=== PATIENT | male | born 1945 | race African-American/Black ===

== ENCOUNTER 2017-11-04 20:25 | Inpatient (IN) | payer OTHER ==
--- NOTE | 2017-11-04 20:38 | PDOC ---
History of Present Illness - General Chief Complaint: Tachycardia Stated Complaint: SENT BY PCP Time Seen by Provider: 11/04/17 20:34 - History of Present Illness Initial Comments: 11/04/17 21:05 Patient is a 72 year old male with a PMH of Asthma and Afib (on Warfarin) who presents to our ED c/o 3 month h/o increasing shortness of breath on exertion. Patient notes [place] for the last 3 months he becomes tired after walking a few hundred yards and has to stop and rest. Patient denies any associated chest pain, lightheadedness or palpitations. Patient also notes that he was involved in the October 20 [facility] clean-up and he has been wheezing since that time, however he has never been evaluated by a society reporter. Patient was evaluated by his gas operation manager, Dr. Jacobson, this afternoon and told he should come to the Emergency Department because his heart was getting stiff and not pumping blood. Patient also notes he had an INR drawn earlier today and it was 11. NKDA Surgical: hernia repair x2, torn Achilles tendon repair (R) Social: denies toxic habits PMD: Dr. Riddle As per EMR, patient last evaluated in 2011 for pain associated with abdominal and inguinal hernias. At that time patient left AMA, however subsequently received surgical repair. Past History - Past Medical History Allergies/Adverse Reactions: Allergies Allergy/AdvReac Type Severity Reaction Status Date / Time grass pollen-sweet vernal, Allergy Mild Verified 11/04/17 20:39 standardized [grass poll-sweet vernal, std.] Home Medications: Ambulatory Orders Budesonide/Formeterol Fumarate [SYMBICORT 160/4.5mcg -] 1 inh PO DAILY 11/04/17 Nebivolol [Bystolic -] 5 mg PO DAILY 11/04/17 Prednisone 10 mg PO DAILY 11/04/17 Tiotropium [place] [Spiriva Respimat] 4 gm IH DAILY 11/04/17 Warfarin Na [Coumadin] 2 mg PO DAILY 11/04/17 Warfarin Na [Coumadin] 5 mg PO DAILY 11/04/17 Cardiac Disorders: Yes - Immunization History Td Vaccination: No TDAP Vaccination: No Immunization Up to Date: No (UNKNOWN) - Suicide/Smoking/Psychosocial Hx Smoking Status: No Years of Tobacco Use: 0 Number of Cigarettes Smoked Daily: 0 Substance Use Type: Alcohol Review of Systems - Review of Systems Constitutional: No: Chills, Fever HEENTM: No: Blurred Vision, Double Vision Respiratory: No: Cough, Shortness of Breath, Stridor, Wheezing Cardiac (ROS): No: Chest Pain, Lightheadedness, Palpitations, Syncope ABD/GI: No: Constipated, Diarrhea, Nausea, Vomiting : No: Burning, Dysuria *Physical Exam - Physical Exam General Appearance: Yes: Nourished, Appropriately Dressed HEENT: positive: EOMI, ONELIA Neck: positive: Trachea midline, Supple Respiratory/Chest: positive: Wheezing. negative: Accessory Muscle Use, Labored Respiration Cardiovascular: positive: S1, S2, Edema (B/L LE pitting edema,) ED Treatment Course - LABORATORY CBC & Chemistry Diagram: 11/04/17 21:15 11/04/17 21:15 - RADIOLOGY Radiology Studies Ordered: Category Date Time Status CXRPORT [CHEST X-RAY PORTABLE*] [RAD] Stat Radiology 11/04/17 20:37 Ordered Medical Decision Making - Medical Decision Making 11/04/17 22:31 72 year old male presents with 3 month h/o ELIAS. B/L pitting edema on PE (R >L) . Clinical suspicion for new onset CHF. Will obtain basic labs, EKG, BNP, Troponin. Doppler of RLE to r/o clot. Reassess. 11/05/17 00:12 Troponin (-) x1, BNP 3000 (no previous BNP in EMR) INR 5 (as per patient INR 11) no active sign of bleeding. Mild ELIE (Cr. 1.4) ECG shows AFib HR 160. Patient on lunchroom monitor. Admitted to inpatient telemetry. LE Doppler pending. *DC/Admit/Observation/Transfer Diagnosis at time of Disposition: New onset of congestive heart failure - Discharge Dispostion Condition at time of disposition: Fair Decision to Admit order: Yes - Referrals - Patient Instructions - Post Discharge Activity
[2017-11-04 21:25] LABS: BASO % 0.6 % (0-2.0); EOS % 1.8 % (0-4.5); HEMATOCRIT 35.8 % (35.4-49); HEMOGLOBIN 11.6 GM/dL (11.7-16.9); LYMPH % 12.2 % (8-40); MCH 29.9 pg (25.7-33.7); MCHC 32.3 g/dl (32.0-35.9); MEAN CELL VOLUME 92.5 fl (80-96); MEAN PLT VOLUME 8.9 fl (7.5-11.1); MONO % 12.8 % (3.8-10.2); NEUT % 72.6 % (42.8-82.8); PLATELET COUNT 246 K/MM3 (134-434); RBC 3.87 M/mm3 (4.00-5.60); RDW 13.2 % (11.9-15.9); WHITE BLOOD COUNT 12.4 K/mm3 (4.0-10.0)
[2017-11-04 21:50] LABS: ALBUMIN 2.5 g/dl (3.4-5.0); ALK PHOS 88 U/L (45-117); ANION GAP 10 MMOL/L (8-16); BILIRUBIN,TOTAL 0.9 mg/dL (0.2-1); BLOOD UREA NITROGEN 17 mg/dL (7-18); CALCIUM 8.1 mg/dL (8.5-10.1); CHLORIDE 104 mmol/L (98-107); CO2 31 mmol/L (21-32); CREATININE 1.4 mg/dL (0.55-1.3); GLUCOSE,RANDOM 136 mg/dL (74-106); N-TERMINAL BNP 3051.9 pg/ml (5-125); SGOT/AST 42 U/L (15-37); SGPT/ALT 63 U/L (13-61); SODIUM 145 mmol/L (136-145); TOT PROT 5.2 g/dl (6.4-8.2)
[2017-11-04 21:57] LABS: PLATELET ESTIMATE ADEQUATE
[2017-11-04 22:23] LABS: PROTHROMBIN TIME (PATIENT) 60.4 SEC (9.7-13.0)
[2017-11-04 22:25] LABS: ACTIVATED PTT 54.7 SECONDS (25.2-36.5)
[2017-11-04 22:32] LABS: INR 5.35 (0.83-1.09)
[2017-11-04] MEDS ORDERED: FUROSEMIDE 40 MG/4 ML INJECTABLE VIAL IVPUSH ONE (22:52)
--- NOTE | 2017-11-04 22:58 | PDOC ---
Attending Attestation - Resident Resident Name: Lucía Chance - ED Attending Attestation I have performed the following: I have examined & evaluated the patient, The case was reviewed & discussed with the resident, I agree w/resident's findings & plan, Exceptions are as noted - HPI HPI: 11/04/17 22:56 The patient is a 72 year old male with a past medical history of Afib (on Warfarin) and asthma who presents to the emergency department with worsening ELIAS and BLE swelling. The patient endorses feeling increasingly short of breath over the past 3 months and bilateral lower extremity swelling, right greater than left. [place] makes him feel winded. He denies any recent chest pain, palpitations, or calf tenderness. He denies any recent fevers, chills, headache or dizziness. He denies any recent nausea, vomit, diarrhea or constipation.He denies any recent dysuria, frequency, urgency or hematuria. Allergies: NKA Past surgical history: None reported. Social History: Nonsmoker. Denies EtOH use and recreational drug use. Primary Care Physician: Dr. Riddle - Physicial Exam PE: 11/04/17 22:57 GENERAL: Awake, alert, and fully oriented, in no acute distress. HEAD: No signs of trauma EYES: PERRLA, EOMI, sclera anicteric, conjunctiva clear ENT: Auricles normal inspection, hearing grossly normal, nares patent, oropharynx clear without exudates. Moist mucosa NECK: Nontender, no stepoffs, Normal ROM, supple, no lymphadenopathy, JVD, or masses LUNGS: Breath sounds equal, clear to auscultation bilaterally. No wheezes, and no crackles HEART: Regular rate and rhythm, normal S1 and S2, no murmurs, rubs or gallops ABDOMEN: Soft, nontender, normoactive bowel sounds. No guarding, no rebound. No masses EXTREMITIES: + PE BLE, R>L NEUROLOGICAL: Cranial nerves II through XII intact. 5/5 strength and sensation in all extremities, Normal speech, normal gait, normal cerebellar function SKIN: Warm, Dry, normal turgor, no rashes or lesions noted. - Medical Decision Making 11/04/17 22:57 72 M with ELIAS and BLE edema, concerning for new CHF. Will also evaluate for DVT given asymmetric BLE swelling. - Labs, trop, BNP - CXR - BLE doppler
[2017-11-04] MEDS ORDERED: FUROSEMIDE 40 MG/4 ML INJECTABLE VIAL ONE (23:00)
--- NOTE | 2017-11-04 23:20 | HP ---
CHIEF COMPLAINT: PCP: Dr Riddle HISTORY OF PRESENT ILLNESS: Patient referred from his java android developer Dr Ferro for evaluation of abnormal ECG. As per patient he has noted increase weight and bilateral swelling of lower extremities. Denies chest pain, SOB, orthopnea or decreased exercise tolerance. Recent Travel: None PAST MEDICAL HISTORY: Atrial Fibrillation on coumadin with supratherapeutic INR which is being held, asthma. PAST SURGICAL HISTORY: Inguinal herniaplasty Social History: Smoking: No Alcohol:Drinks Beer 3 22oz daily Drugs: none Family History: Noncontributory Allergies grass pollen-sweet vernal, standardized [grass poll-sweet vernal, std.] Allergy (Mild, Verified 11/04/17 20:39) HOME MEDICATIONS: Home Medications Medication Instructions Recorded Budesonide/Formeterol Fumarate 1 inh PO DAILY 11/04/17 [SYMBICORT 160/4.5mcg -] Nebivolol [Bystolic -] 5 mg PO DAILY 11/04/17 Prednisone 10 mg PO DAILY 11/04/17 Tiotropium [place] [Spiriva 4 gm IH DAILY 11/04/17 Respimat] Warfarin Na [Coumadin] 2 mg PO DAILY 11/04/17 Warfarin Na [Coumadin] 5 mg PO DAILY 11/04/17 REVIEW OF SYSTEMS CONSTITUTIONAL: weight change Absent: fever, chills, diaphoresis, generalized weakness, malaise, loss of appetite, HEENT: Absent: rhinorrhea, nasal congestion, throat pain, throat swelling, difficulty swallowing, mouth swelling, ear pain, eye pain, visual changes CARDIOVASCULAR: peripheral edema Absent: chest pain, syncope, palpitations, irregular heart rate, lightheadedness , RESPIRATORY: Absent: cough, shortness of breath, dyspnea with exertion, orthopnea, wheezing, stridor, hemoptysis GASTROINTESTINAL: Absent: abdominal pain, abdominal distension, nausea, vomiting, diarrhea, constipation, melena, hematochezia GENITOURINARY: Absent: dysuria, frequency, urgency, hesitancy, hematuria, flank pain, genital pain MUSCULOSKELETAL: Absent: myalgia, arthralgia, joint swelling, back pain, neck pain SKIN: Absent: rash, itching, pallor HEMATOLOGIC/IMMUNOLOGIC: Absent: easy bleeding, easy bruising, lymphadenopathy, frequent infections ENDOCRINE: Absent: unexplained weight gain, unexplained weight loss, heat intolerance, cold intolerance NEUROLOGIC: Absent: headache, focal weakness or paresthesias, dizziness, unsteady gait, seizure, mental status changes, bladder or bowel incontinence PSYCHIATRIC: Absent: anxiety, depression, suicidal or homicidal ideation, hallucinations. PHYSICAL EXAMINATION Vital Signs - 24 hr 11/04/17 20:34 Temperature 99.4 F Pulse Rate 89 Respiratory 16 Rate Blood Pressure 114/70 O2 Sat by Pulse 100 Oximetry (%) GENERAL: Awake, alert, and fully oriented, in no acute distress. HEAD: Normal with no signs of trauma. EYES: Pupils equal, round and reactive to light, extraocular movements intact, sclera anicteric, conjunctiva clear. No lid lag. EARS, NOSE, THROAT: Ears normal, nares patent, oropharynx clear without exudates. Moist mucous membranes. NECK: JVD +,Normal range of motion, supple without lymphadenopathy, or masses. LUNGS: Breath sounds equal, clear to auscultation bilaterally. No wheezes, and no crackles. No accessory muscle use. HEART: Regular rate and rhythm, normal S1 and S2 without murmur, rub or gallop. ABDOMEN: Soft, nontender, distended midline surgical scar, normoactive bowel sounds, no guarding, no rebound, no masses. No hepatomegaly or splenomegaly. MUSCULOSKELETAL: Normal range of motion at all joints. No bony deformities or tenderness. No CVA tenderness. UPPER EXTREMITIES: 2+ pulses, warm, well-perfused. No cyanosis. No clubbing. No peripheral edema. LOWER EXTREMITIES: 2+ pulses, warm, well-perfused. No calf tenderness. Bilateral peripheral edema. NEUROLOGICAL: Cranial nerves II-XII intact. Normal speech. Normal gait. PSYCHIATRIC: Cooperative. Good eye contact. Appropriate mood and affect. SKIN: Warm, dry, normal turgor, no rashes or lesions noted, normal capillary refill. Laboratory Results - last 24 hr 11/04/17 11/04/17 11/04/17 21:15 21:15 21:50 WBC 12.4 H RBC 3.87 L Hgb 11.6 L Hct 35.8 MCV 92.5 MCH 29.9 MCHC 32.3 RDW 13.2 Plt Count 246 MPV 8.9 Absolute Neuts (auto) 9.0 H Total Counted 100 Neutrophils % 72.6 Neutrophils % (Manual) 72.0 Lymphocytes % 12.2 Lymphocytes % (Manual) 14.0 Monocytes % 12.8 H Monocytes % (Manual) 12 H Eosinophils % 1.8 Eosinophils % (Manual) 2.0 Basophils % 0.6 Nucleated RBC % 0 Differential Comment Loading Unit Tool Setter Platelet Estimate Adequate PT with INR 60.40 H INR 5.35 H* PTT (Actin FS) 54.7 H Sodium 145 Potassium 4.0 Chloride 104 Carbon Dioxide 31 Anion Gap 10 BUN 17 Creatinine 1.4 H Creat Clearance w eGFR 49.96 Random Glucose 136 H Calcium 8.1 L Total Bilirubin 0.9 AST 42 H ALT 63 H Alkaline Phosphatase 88 Creatine Kinase 402 H Creatine Kinase Index 1.0 CK-MB (CK-2) 4.3 H Troponin I < 0.02 B-Natriuretic Peptide 3051.9 H Total Protein 5.2 L Albumin 2.5 L ASSESSMENT/PLAN: Admit patient to telemety for evaluation of New Onset CHF New Onset CHF ECHO Lasix 60mg total IVP given today and continue with 40mg daily Atorvastatin 40mg daily monitor I&Os Daily weights Lipid panel, CBC, CMP and INR in AM Cardiology consult AFib Continue to hold Coumadin for supratherapeutic INR Asthma- Continue home medications Symbicort and Prednisone Nebs PRN DVT prophylaxis: INR supratherapeutic and 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 on dedicated intermodal 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 driver anticoagulation therapy Problem List - Problem (1) New onset of congestive heart failure Code(s): I50.9 - HEART FAILURE, UNSPECIFIED (2) Elevated INR Code(s): R79.1 - ABNORMAL COAGULATION PROFILE (3) Afib Code(s): I48.91 - UNSPECIFIED ATRIAL FIBRILLATION Qualifiers: Atrial fibrillation type: paroxysmal Qualified Code(s): I48.0 - Paroxysmal atrial fibrillation (4) Asthma Code(s): J45.909 - UNSPECIFIED ASTHMA, UNCOMPLICATED Qualifiers: Asthma severity: moderate Asthma persistence: persistent Visit type - Emergency Visit Emergency Visit: Yes ED Registration Date: 11/04/17 Care time: The patient presented to the Emergency Department on the above date and was hospitalized for further evaluation of their emergent condition. - New Patient This patient is new to me today: Yes Date on this admission: 11/10/17 - Critical Care Critical Care patient: No
--- NOTE | 2017-11-05 00:03 | HP ---
CHIEF COMPLAINT: PCP: HISTORY OF PRESENT ILLNESS: ER course was notable for: (1) (2) (3) Recent Travel: PAST MEDICAL HISTORY: PAST SURGICAL HISTORY: Social History: Smoking: Alcohol: Drugs: Family History: Allergies grass pollen-sweet vernal, standardized [grass poll-sweet vernal, std.] Allergy (Mild, Verified 11/04/17 20:39) HOME MEDICATIONS: Home Medications Medication Instructions Recorded Budesonide/Formeterol Fumarate 1 inh PO DAILY 11/04/17 [SYMBICORT 160/4.5mcg -] Nebivolol [Bystolic -] 5 mg PO DAILY 11/04/17 Prednisone 10 mg PO DAILY 11/04/17 Tiotropium [place] [Spiriva 4 gm IH DAILY 11/04/17 Respimat] Warfarin Na [Coumadin] 2 mg PO DAILY 11/04/17 Warfarin Na [Coumadin] 5 mg PO DAILY 11/04/17 REVIEW OF SYSTEMS CONSTITUTIONAL: Absent: fever, chills, diaphoresis, generalized weakness, malaise, loss of appetite, weight change HEENT: Absent: rhinorrhea, nasal congestion, throat pain, throat swelling, difficulty swallowing, mouth swelling, ear pain, eye pain, visual changes CARDIOVASCULAR: Absent: chest pain, syncope, palpitations, irregular heart rate, lightheadedness , peripheral edema RESPIRATORY: Absent: cough, shortness of breath, dyspnea with exertion, orthopnea, wheezing, stridor, hemoptysis GASTROINTESTINAL: Absent: abdominal pain, abdominal distension, nausea, vomiting, diarrhea, constipation, melena, hematochezia GENITOURINARY: Absent: dysuria, frequency, urgency, hesitancy, hematuria, flank pain, genital pain MUSCULOSKELETAL: Absent: myalgia, arthralgia, joint swelling, back pain, neck pain SKIN: Absent: rash, itching, pallor HEMATOLOGIC/IMMUNOLOGIC: Absent: easy bleeding, easy bruising, lymphadenopathy, frequent infections ENDOCRINE: Absent: unexplained weight gain, unexplained weight loss, heat intolerance, cold intolerance NEUROLOGIC: Absent: headache, focal weakness or paresthesias, dizziness, unsteady gait, seizure, mental status changes, bladder or bowel incontinence PSYCHIATRIC: Absent: anxiety, depression, suicidal or homicidal ideation, hallucinations. PHYSICAL EXAMINATION Vital Signs - 24 hr 11/04/17 20:34 Temperature 99.4 F Pulse Rate 89 Respiratory 16 Rate Blood Pressure 114/70 O2 Sat by Pulse 100 Oximetry (%) GENERAL: Awake, alert, and fully oriented, in no acute distress. HEAD: Normal with no signs of trauma. EYES: Pupils equal, round and reactive to light, extraocular movements intact, sclera anicteric, conjunctiva clear. No lid lag. EARS, NOSE, THROAT: Ears normal, nares patent, oropharynx clear without exudates. Moist mucous membranes. NECK: Normal range of motion, supple without lymphadenopathy, JVD, or masses. LUNGS: Breath sounds equal, clear to auscultation bilaterally. No wheezes, and no crackles. No accessory muscle use. HEART: Regular rate and rhythm, normal S1 and S2 without murmur, rub or gallop. ABDOMEN: Soft, nontender, not distended, normoactive bowel sounds, no guarding, no rebound, no masses. No hepatomegaly or splenomegaly. MUSCULOSKELETAL: Normal range of motion at all joints. No bony deformities or tenderness. No CVA tenderness. UPPER EXTREMITIES: 2+ pulses, warm, well-perfused. No cyanosis. No clubbing. No peripheral edema. LOWER EXTREMITIES: 2+ pulses, warm, well-perfused. No calf tenderness. No peripheral edema. NEUROLOGICAL: Cranial nerves II-XII intact. Normal speech. Normal gait. PSYCHIATRIC: Cooperative. Good eye contact. Appropriate mood and affect. SKIN: Warm, dry, normal turgor, no rashes or lesions noted, normal capillary refill. Laboratory Results - last 24 hr 11/04/17 11/04/17 11/04/17 21:15 21:15 21:50 WBC 12.4 H RBC 3.87 L Hgb 11.6 L Hct 35.8 MCV 92.5 MCH 29.9 MCHC 32.3 RDW 13.2 Plt Count 246 MPV 8.9 Absolute Neuts (auto) 9.0 H Total Counted 100 Neutrophils % 72.6 Neutrophils % (Manual) 72.0 Lymphocytes % 12.2 Lymphocytes % (Manual) 14.0 Monocytes % 12.8 H Monocytes % (Manual) 12 H Eosinophils % 1.8 Eosinophils % (Manual) 2.0 Basophils % 0.6 Nucleated RBC % 0 Differential Comment Superintendent [employer]illing [employer] Production Platelet Estimate Adequate PT with INR 60.40 H INR 5.35 H* PTT (Actin FS) 54.7 H Sodium 145 Potassium 4.0 Chloride 104 Carbon Dioxide 31 Anion Gap 10 BUN 17 Creatinine 1.4 H Creat Clearance w eGFR 49.96 Random Glucose 136 H Calcium 8.1 L Total Bilirubin 0.9 AST 42 H ALT 63 H Alkaline Phosphatase 88 Creatine Kinase 402 H Creatine Kinase Index 1.0 CK-MB (CK-2) 4.3 H Troponin I < 0.02 B-Natriuretic Peptide 3051.9 H Total Protein 5.2 L Albumin 2.5 L ASSESSMENT/PLAN: Hospitalist Screening - Colonoscopy Questionnaire Colonoscopy Questionnaire: Colonoscopy Questionnaire
--- NOTE | 2017-11-05 01:30 | MSN ---
Admitting History and Physical - Primary Care Physician PCP: Dr. Riddle - Admission Chief Complaint: Sent by supervisor riprap placing for ischemic changes on ECG History of Present Illness: Pt is a 72 year old male with a PMHx of asthma and afib. He was sent to the ED from supervisor riprap placing Dr. Ferro due to abnormal ECG changes. Pt was seeing supervisor riprap placing for routine INR check, which was found to be elevated at 5.35 when supervisor riprap placing decided to do an ECG and noticed some ischemic changes. Of note pt has had increased SOB on exertion for the past three months. Pt currently is asymptomatic. History Source: Patient Limitations to Obtaining History: No Limitations - Past Medical History KNIFE BLADE POLISHER: No: Alzheimer's, CVA, Dementia, Migraine, Multiple Sclerosis, Peripheral Neuropathy, Parkinson's, Seizure, Syncope, TIA, Vertigo, Other Cardiovascular: Yes: AFIB Pulmonary: Yes: Asthma Gastrointestinal: No: Ascites, Cancer, Constipation, Crohn's Disease, Diverticulitis, Diverticulosis, Esophageal Varices, Gastritis, GERD, GI Bleed, Hemorrhoids, Hiatal Hernia, Inflamatory Bowel Disease, Irritable Bowel Disease, Pancreatitis, Peptic Ulcer Disease, Ulcerative Colitis, Other Hepatobiliary: No: Cirrhosis, Cholelithiasis, Cholecystitis, Choledocholithiasis , Hepatitis A, Hepatitis B, Hepatitis C, Other Renal/: No: Renal Failure, Renal Inusuff, BPH, Cancer, Hematuria, Hemodialysis , Neurogenic Bladder, Renal Calculi, UTI, Other Heme/Onc: No: Anemia, B12 Deficiency, Bleeding Disorder, Cancer, Current Chemotherapy, Current Radiation Therapy, Hemochromatosis, Hypercoaguable State, Myeloproliferative Synd, Sickle Cell Disease, Sickle Cell Trait, Thrombocytopenia, Other Infectious Disease: No: AIDS, C-Diff, Herpes Zoster, HIV, MRSA, STD's, Tuberculosis, VREF, Other Psych: No: Addictions, Anxiety, Bipolar, Depression, Panic, Psychosis, Schizophrenia, Other Musculoskeletal: No: Bursitis, Chronic low back pain, Hemiparesis, Hemiplegia, Osteoarthritis, Paraplegia, Other Rheumatology: No: Fibromyalgia, Gout, Lupus, Rheumatoid Arthritis, Sarcoidosis, Vasculitis, Other ENT: No: Allergic Rhinitis, Sinusitis, Other Endocrine: No: Piedmont's Disease, Bybee's Disease, Diabetes Insipidus, Diabetes Mellitus, Hyperparathyroidism, Hyperthyroidism, Hypothyroidism, Osteopenia, SIADH, Other Dermatology: No: Basal Cell, Cellulitis, Eczema, Melanoma, Psoriasis, Squamous Cell, Other - Past Surgical History Past Surgical History: Yes: Hernia Repair (inguinal hernia repair 15 years ago with re repair 1 year ago) Additional Past Surgical History: achilles tendon repair - Smoking History Smoking history: Never smoked Have you smoked in the past 12 months: No Aproximately how many cigarettes per day: 0 - Alcohol/Substance Use Hx Alcohol Use: Yes Number of Drinks Daily: 6 (3 22oz bottles of beer) History of Substance Use: reports: None - Social History ADL: Independent History of Recent Travel: No Home Medications - Allergies Allergies/Adverse Reactions: Allergies Allergy/AdvReac Type Severity Reaction Status Date / Time grass pollen-sweet vernal, Allergy Mild Verified 11/04/17 20:39 standardized [grass poll-sweet vernal, std.] - Home Medications Home Medications: Ambulatory Orders Budesonide/Formeterol Fumarate [SYMBICORT 160/4.5mcg -] 1 inh PO DAILY 11/04/17 Nebivolol [Bystolic -] 5 mg PO DAILY 11/04/17 Prednisone 10 mg PO DAILY 11/04/17 Tiotropium [place] [Spiriva Respimat] 4 gm IH DAILY 11/04/17 Warfarin Na [Coumadin] 2 mg PO DAILY 11/04/17 Warfarin Na [Coumadin] 5 mg PO DAILY 11/04/17 Family Disease History - Family Disease History Family History: Denies Review of Systems - Review of Systems Constitutional: reports: Lethargy Eyes: reports: No Symptoms HENT: reports: No Symptoms Neck: reports: Other (JVD) Cardiovascular: reports: Edema, Shortness of Breath Respiratory: reports: SOB, SOB on Exertion, Wheezing Gastrointestinal: reports: Bloating Genitourinary: reports: No Symptoms Breasts: reports: No Symptoms Reported Musculoskeletal: reports: No Symptoms Integumentary: reports: Other (approximate 8 in surgical scar midline of abdomen ) Neurological: reports: No Symptoms Endocrine: reports: No Symptoms Hematology/Lymphatic: reports: No Symptoms Psychiatric: reports: No Symptoms Physical Examination Vital Signs: Vital Signs Temperature 99.4 F 11/04/17 20:34 Pulse Rate 72 11/05/17 00:18 Respiratory Rate 18 11/05/17 00:18 Blood Pressure 124/72 11/05/17 00:18 O2 Sat by Pulse Oximetry (%) 99 11/05/17 00:18 Constitutional: Yes: Well Nourished, No Distress, Calm Eyes: Yes: WNL, Conjunctiva Clear, EOM Intact HENT: Yes: WNL, Atraumatic, Normocephalic Neck: Yes: Other Cardiovascular: Yes: Pulse Irregular, JVD Respiratory: Yes: SOB, SOB on Exertion, Wheezes Gastrointestinal: Yes: Hernia (non painful ventral hernia) Renal/: Yes: WNL Musculoskeletal: Yes: WNL Extremities: Yes: WNL, Other Edema: LLE: 3+ (pitting), RLE: 3+ (pitting) Peripheral Pulses WNL: Yes Integumentary: Yes: WNL Neurological: Yes: WNL, Alert, Oriented ...Motor Strength: WNL Psychiatric: Yes: WNL, Alert, Oriented Labs: CBC, BMP 11/04/17 21:15 11/04/17 21:15 Imaging - Results Chest X-ray: Report Reviewed (Chest xray showed cardiomegaly and pulmonary venous congestion) EKG: Report Reviewed (afib with lateral ischemic changes) Problem List - Problems (1) New onset of congestive heart failure Assessment/Plan: start on BECCA inhibitor continue with lasix 40 mg daily. Pt was responsive to 40 mg lasix in ED. ECHO Consult cardio measure I&Os daily weights Code(s): I50.9 - HEART FAILURE, UNSPECIFIED (2) Elevated INR Assessment/Plan: hold warfarin repeat INR Code(s): R79.1 - ABNORMAL COAGULATION PROFILE (3) Dyspnea on exertion Assessment/Plan: cardio consult review records with supervisor riprap placing for possible repeat stress test ECHO monitor for symptom resolution when volume status improves Code(s): R06.09 - OTHER FORMS OF DYSPNEA (4) Afib Assessment/Plan: resume warfarin once INR resolves Code(s): I48.91 - UNSPECIFIED ATRIAL FIBRILLATION Qualifiers: Atrial fibrillation type: paroxysmal Qualified Code(s): I48.0 - Paroxysmal atrial fibrillation
[2017-11-05 04:43] VITALS: BMI 29.5
[2017-11-05] MEDS ORDERED: ALBUTEROL SO4 2.5/IPRATROPIUM 0.5 INH SOL 3 ML VIAL.NEB. NEB PRN ×2 (05:53→15:35)
[2017-11-05] MEDS ORDERED: HEPARIN NA (PORCINE) 5,000 UNITS/ML 1ML VIAL SQ SCH (06:00)
[2017-11-05 06:22] LABS: HEMOGLOBIN 11.3 GM/dL (11.7-16.9); MCH 29.7 pg (25.7-33.7); MCHC 32.2 g/dl (32.0-35.9); MEAN CELL VOLUME 92.1 fl (80-96); MEAN PLT VOLUME 9.2 fl (7.5-11.1); PLATELET COUNT 227 K/MM3 (134-434); RDW 13.4 % (11.9-15.9); WHITE BLOOD COUNT 11.8 K/mm3 (4.0-10.0)
[2017-11-05 06:40] LABS: PROTHROMBIN TIME (PATIENT) 57.4 SEC (9.7-13.0)
[2017-11-05 06:43] LABS: ACTIVATED PTT 58.3 SECONDS (25.2-36.5)
[2017-11-05 06:58] LABS: ANION GAP 6 MMOL/L (8-16); BLOOD UREA NITROGEN 15 mg/dL (7-18); CHLORIDE 101 mmol/L (98-107); CO2 35 mmol/L (21-32); CREATININE 1.2 mg/dL (0.55-1.3); GLUCOSE,RANDOM 117 mg/dL (74-106); MAGNESIUM 1.8 mg/dL (1.8-2.4); PHOSPHOROUS 2.7 mg/dL (2.5-4.9); POTASSIUM 3.4 mmol/L (3.5-5.1); SODIUM 142 mmol/L (136-145)
[2017-11-05 07:41] LABS: CHOLESTEROL 138 mg/dL (50-200); HDL CHOLESTEROL 38 mg/dL (40-60); TRIGLYCERIDES 100 mg/dL (0-150)
[2017-11-05 08:09] LABS: INR 5.08 (0.83-1.09)
--- NOTE | 2017-11-05 09:34 | EKG ---
Test Reason : Blood Pressure : / mmHG Vent. Rate : 142 BPM Atrial Rate : 241 BPM P-R Int : 000 ms QRS Dur : 086 ms QT Int : 274 ms P-R-T Axes : 000 058 202 degrees QTc Int : 421 ms ATRIAL FIBRILLATION WITH RAPID VENTRICULAR RESPONSE WITH PREMATURE VENTRICULAR OR ABERRANTLY CONDUCTED COMPLEXES ABNORMAL ECG WHEN COMPARED WITH ECG OF 16-JUN-2007 12:26, SIGNIFICANT CHANGES HAVE OCCURRED Confirmed by ROSALVA ARZOLA, CAROL ([id number]) on 11/05/2017 9:34:31 AM Referred By: Confirmed By:CAROL BLACKWELL MD
[2017-11-05] MEDS ORDERED: FUROSEMIDE 40 MG/4 ML INJECTABLE VIAL IVPUSH ONE (09:35)
[2017-11-05] MEDS ORDERED: MAGNESIUM SULF 50% (8.12 MEQ/2 ML-1 GM VIAL) IVPB ONE (09:45)
[2017-11-05] MEDS: TIOTROPIUM BROMIDE 2.5 MCG (SPIRIVA) RESPIMAT INHALER IH SCH (09:47)
[2017-11-05] MEDS: POTASSIUM CHLORIDE ORAL LIQUID 20 MEQ/15 ML PO SCH ×2 (09:49→21:45)
--- NOTE | 2017-11-05 09:51 | PN ---
Progress Note, Physician Chief Complaint: Pt sitting in bed in no acute distress. reports sob with exertion over the last few months w/ recent worsening in symptoms and LE edema. Otherwise, denies any chest pain/sob at rest, n/v/d - Current Medication List Current Medications: Active Medications Albuterol/Ipratropium (Duoneb -) 1 amp NEB DAILY PRN PRN Reason: WHEEZING Last Admin: 11/05/17 06:26 Dose: 1 amp Atorvastatin Calcium (Lipitor -) 40 mg PO HS MARIAELENA Budesonide/Formoterol Fumarate (Symbicort 160/4.5mcg -) 2 puff IH BID MARIAELENA Influenza Virus Vaccine Quadrival (Flulaval Quad [id number]) 60 mcg IM .ONCE ONE Stop: 11/05/17 10:01 Lisinopril (Prinivil) 5 mg PO DAILY MARIAELENA Pneumococcal 13-Valent Conj Vacc (Prevnar 13 Syringe -) 0.5 ml IM .ONCE ONE Stop: 11/05/17 10:01 Potassium Chloride (Potassium Chloride Oral Liquid) 40 meq PO BID MARIAELENA Prednisone (Deltasone -) 10 mg PO DAILY MARIAELENA Tiotropium [place] (Spiriva Respimat) 2 puff IH DAILY [facility] - Objective Vital Signs: Vital Signs Temperature 98.8 F 11/05/17 05:00 Pulse Rate 105 H 11/05/17 09:00 Respiratory Rate 20 11/05/17 09:00 Blood Pressure 105/48 L 11/05/17 09:00 O2 Sat by Pulse Oximetry (%) 97 11/05/17 08:59 Constitutional: Yes: Well Nourished, No Distress, Calm Cardiovascular: Yes: Pulse Irregular. No: Rub Respiratory: Yes: Regular, Diminished, SOB on Exertion, Wheezes (scattered). No : Accessory Muscle Use, SOB, Tachypnea Gastrointestinal: Yes: WNL, Normal Bowel Sounds, Soft. No: Distention, Tenderness, Vomiting Genitourinary: Yes: WNL Musculoskeletal: Yes: WNL Edema: LLE: 2+, RLE: 3+ Neurological: Yes: WNL, Alert, Oriented Psychiatric: Yes: WNL, Alert, Oriented Labs: CBC, BMP 11/05/17 05:30 11/05/17 05:30 INR, PTT INR 5.08 (0.83-1.09) H* 11/05/17 05:30 Problem List - Problems (1) Acute exacerbation of CHF (congestive heart failure) Assessment/Plan: acute on chronic, underlying afib presents w/ worsening sob on exertion, LE edema echo- ef mildly reduced ef,diastolic dysfunction satting >92% on RA lasix iv 40mg daily valsartan started dvt ruled out daily weights low na diet cardiology following Code(s): I50.9 - HEART FAILURE, UNSPECIFIED Qualifiers: Heart failure type: combined systolic and diastolic Qualified Code(s): I50.43 - Acute on chronic combined systolic (congestive) and diastolic ( congestive) heart failure (2) Atrial fibrillation with RVR Assessment/Plan: rapid rate in 110s-130s , asymptomatic lopressor 5mg x 1, cardizem if no improvement nebivolol increased cardiology following Code(s): I48.91 - UNSPECIFIED ATRIAL FIBRILLATION (3) Afib Assessment/Plan: continue nebivolol coumadin HELD monitor INR Code(s): I48.91 - UNSPECIFIED ATRIAL FIBRILLATION Qualifiers: Atrial fibrillation type: paroxysmal Qualified Code(s): I48.0 - Paroxysmal atrial fibrillation (4) Dyspnea on exertion Assessment/Plan: as above Code(s): R06.09 - OTHER FORMS OF DYSPNEA (5) ELIE (acute kidney injury) Assessment/Plan: improved monitor Code(s): N17.9 - ACUTE KIDNEY FAILURE, UNSPECIFIED (6) Transaminitis Assessment/Plan: 2/2 hepatic congestion 2/2 chf improved Code(s): R74.0 - NONSPEC ELEV OF LEVELS OF TRANSAMNS & LACTIC ACID DEHYDRGNSE (7) Supratherapeutic INR Assessment/Plan: slowly improving continue to hold coumadin and watch no overt signs of bleeding Code(s): R79.1 - ABNORMAL COAGULATION PROFILE (8) Leukocytosis Assessment/Plan: improving does not suspect infectious etiology UA/UC ordered Code(s): D72.829 - ELEVATED WHITE BLOOD CELL COUNT, UNSPECIFIED (9) Hypokalemia Assessment/Plan: 2/2 diuresis replete prn kcl po scheduled monitor bmp Code(s): E87.6 - HYPOKALEMIA (10) Hypomagnesemia Assessment/Plan: mild replete prn mg sulfate iv 1mg x 1 monitor Code(s): E83.42 - HYPOMAGNESEMIA (11) Asthma Assessment/Plan: wheezing on exam continue nebs pulm consult pending Code(s): J45.909 - UNSPECIFIED ASTHMA, UNCOMPLICATED Qualifiers: Asthma severity: moderate Asthma persistence: persistent (12) HLD (hyperlipidemia) Assessment/Plan: controlled continue statin Code(s): E78.5 - HYPERLIPIDEMIA, UNSPECIFIED
[2017-11-05] MEDS ORDERED: LISINOPRIL 5 MG TABLET (FP) PO SCH ×2 (10:00→10:03)
[2017-11-05] MEDS ORDERED: FUROSEMIDE 40 MG TABLET (FP) PO SCH (10:00)
[2017-11-05] MEDS ORDERED: predniSONE 10 MG TABLET (UD) PO SCH (10:00)
[2017-11-05] MEDS ORDERED: PNEUMOC 13-VAL CONJ-DIP CRM/PF 0.5 ML DISP.SYRIN IM ONE (10:00)
[2017-11-05] MEDS ORDERED: FLU VACCINE QUAD 60 MCG/0.5 ML (MDV 18-19) IM ONE (10:00)
[2017-11-05] MEDS: BUDESONIDE/FORMETEROL FUMARATE 160/4.5 mcg INHALER IH SCH ×2 (10:02→21:51)
[2017-11-05 11:03] LABS: ALBUMIN 2.3 g/dl (3.4-5.0); ALK PHOS 75 U/L (45-117); BILIRUBIN,DIRECT 0.3 mg/dL (0.0-0.2); SGOT/AST 35 U/L (15-37); SGPT/ALT 55 U/L (13-61)
--- NOTE | 2017-11-05 11:46 | CON.CARD ---
Consult Consult Specialty:: Cardiology Referred by:: Johnny Riddle MD Reason for Consultation:: Acute on chronic diastolic failure, rapid AF - History of Present Illness Chief Complaint: Increasing dyspnea, bilateral LE edema History of Present Illness: 72 yo male h/o diastolic dysfunction, paroxysmal afib/flutter [id number] 2-3 on coumadin per INR (declines DOACs), hypertensive cardiovascular disease, bronchial asthma, admitted for increasing dyspnea with minimal exertion, fatigue , bilateral lower extremity edema, orthopnea without PND, denies palpitations, near or true syncope. Found to be in rapid afib and failure, feels better after rate-control and diuresis. 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: No: Alzheimer's, CVA, Dementia, Migraine, Multiple Sclerosis, Peripheral Neuropathy, Parkinson's, Seizure, Syncope, TIA, Vertigo, Other Cardio/Vascular: Yes: AFIB, CHF Pulmonary: Yes: Asthma Gastrointestinal: No: Ascites, Cancer, Constipation, Crohn's Disease, Diverticulitis, Diverticulosis, Esophageal Varices, Gastritis, GERD, GI Bleed, Hemorrhoids, Hiatal Hernia, Inflamatory Bowel Disease, Irritable Bowel Disease, Pancreatitis, Peptic Ulcer Disease, Ulcerative Colitis, Other Hepatobiliary: No: Cirrhosis, Cholelithiasis, Cholecystitis, Choledocholithiasis , Hepatitis A, Hepatitis B, Hepatitis C, Other Renal/: No: Renal Failure, Renal Inusuff, BPH, Cancer, Hematuria, Hemodialysis , Neurogenic Bladder, Renal Calculi, UTI, Other Infectious Disease: No: AIDS, C-Diff, Herpes Zoster, HIV, MRSA, STD's, Tuberculosis, VREF, Other Psych: No: Addictions, Anxiety, Bipolar, Depression, Panic, Psychosis, Schizophrenia, Other Musculoskeletal: No: Bursitis, Chronic low back pain, Hemiparesis, Hemiplegia, Osteoarthritis, Paraplegia, Other Rheumatology: No: Fibromyalgia, Gout, Lupus, Rheumatoid Arthritis, Sarcoidosis, Vasculitis, Other ENT: No: Allergic Rhinitis, Sinusitis, Other Endocrine: No: Gage's Disease, Tamica's Disease, Diabetes Insipidus, Diabetes Mellitus, Hyperparathyroidism, Hyperthyroidism, Hypothyroidism, Osteopenia, SIADH, Other Dermatology: No: Basal Cell, Cellulitis, Eczema, Melanoma, Psoriasis, Squamous Cell, Other - Past Surgical History Past Surgical History: Yes: Hernia Repair (inguinal hernia repair 15 years ago with re repair 1 year ago) - Alcohol/Substance Use Hx Alcohol Use: Yes Number of Drinks Daily: 6 (3 22oz bottles of beer) History of Substance Use: reports: None - Smoking History Smoking history: Never smoked Have you smoked in the past 12 months: No Aproximately how many cigarettes per day: 0 - Social History ADL: Independent History of Recent Travel: No Home Medications - Allergies Allergies/Adverse Reactions: Allergies Allergy/AdvReac Type Severity Reaction Status Date / Time grass pollen-sweet vernal, Allergy Mild Verified 11/04/17 20:39 standardized [grass poll-sweet vernal, std.] - Home Medications Home Medications: Ambulatory Orders Budesonide/Formeterol Fumarate [SYMBICORT 160/4.5mcg -] 1 inh PO DAILY 11/04/17 Nebivolol [Bystolic -] 5 mg PO DAILY 11/04/17 Prednisone 10 mg PO DAILY 11/04/17 Tiotropium [place] [Spiriva Respimat] 4 gm IH DAILY 11/04/17 Warfarin Na [Coumadin] 2 mg PO DAILY 11/04/17 Warfarin Na [Coumadin] 5 mg PO DAILY 11/04/17 Family Disease History - Family Disease History Family Disease History: Diabetes: Father, Mother Review of Systems - Review of Systems Constitutional: reports: Lethargy Eyes: reports: No Symptoms HENT: reports: No Symptoms Neck: reports: No Symptoms Cardiovascular: reports: Shortness of Breath Respiratory: reports: Exercise Intolerance, SOB on Exertion, Wheezing Gastrointestinal: reports: No Symptoms Genitourinary: reports: No Symptoms Integumentary: reports: No Symptoms Neurological: reports: No Symptoms Endocrine: reports: No Symptoms Hematology/Lymphatic: reports: No Symptoms Vital Signs: Vital Signs Temperature 98.8 F 11/05/17 05:00 Pulse Rate 105 H 11/05/17 09:00 Respiratory Rate 20 11/05/17 09:00 Blood Pressure 105/48 L 11/05/17 09:00 O2 Sat by Pulse Oximetry (%) 97 11/05/17 08:59 Constitutional: Yes: No Distress, Calm Neck: Yes: Supple Respiratory: Yes: Regular, Diminished, On Nasal O2, Rales, Wheezes Gastrointestinal: Yes: Normal Bowel Sounds, Soft Cardiovascular: Yes: Tachycardia, Pulse Irregular JVD: No Carotid Bruit: No Heart Sounds: Yes: S1, S2 Murmur: Yes: Systolic Murmur, Grade 1 Edema: Yes Edema: LLE: 1+, RLE: 1+ - Other Data Labs, Other Data: CBC, BMP 11/05/17 05:30 11/05/17 05:30 INR, PTT INR 5.08 (0.83-1.09) H* 11/05/17 05:30 Troponin, BNP 11/04/17 21:15 Troponin I < 0.02 B-Natriuretic Peptide 3051.9 H Troponin, BNP 11/04/17 21:15 Troponin I < 0.02 B-Natriuretic Peptide 3051.9 H Afib 142 PVC Ejection Fraction %: LVEF > or = 40 % Imaging - Results Chest X-ray: Report Reviewed (Mild CHF) Problem List - Problems (1) Acute exacerbation of CHF (congestive heart failure) Code(s): I50.9 - HEART FAILURE, UNSPECIFIED Qualifiers: Heart failure type: combined systolic and diastolic Qualified Code(s): I50.43 - Acute on chronic combined systolic (congestive) and diastolic ( congestive) heart failure (2) Afib Code(s): I48.91 - UNSPECIFIED ATRIAL FIBRILLATION Qualifiers: Atrial fibrillation type: paroxysmal Qualified Code(s): I48.0 - Paroxysmal atrial fibrillation (3) Asthma Code(s): J45.909 - UNSPECIFIED ASTHMA, UNCOMPLICATED Qualifiers: Asthma severity: moderate Asthma persistence: persistent (4) Supratherapeutic INR Code(s): R79.1 - ABNORMAL COAGULATION PROFILE (5) Hypertensive cardiovascular disease Code(s): I11.9 - HYPERTENSIVE HEART DISEASE WITHOUT HEART FAILURE Qualifiers: Heart failure presence: with heart failure Heart failure type: combined systolic and diastolic Heart failure chronicity: acute on chronic Qualified Code(s): I11.0 - Hypertensive heart disease with heart failure; I50.43 - Acute on chronic combined systolic (congestive) and diastolic (congestive) heart failure Assessment/Plan August 14, 2017 cLVH with abnormal septal motion, normal LVEF 65-70%, MAC, mild LAE 4.7 cm, CHAVA, mild MR, mild-mod TR RVSP 32 mmHg April 20, 2014 Nuc stress: No ischemia LVEF 63% A: 1. Acute on chronic diastolic heart failure in context of 2. Paroxysmal atrial fibrillation with RVR with supratherapeutic INR 3. Hypertensive cardiovascular disease 4. Reactive airway disease/bronchial asthma r/o COPD P:1. IV diuresis with monitor diuretic response, renal function and electrolytes 2. Increase Bystolic 5 bid, IV cardizem or Lopressor as needed for rate-control 3. Hold coumadin for INR 2-3, advised switch to DOAC with benefits over coumadin , he will reconsider 4. BD, singulair, O2 as needed, outpatient PFTs 5. Thank you for consultative opportunity
[2017-11-05] MEDS ORDERED: NEBIVOLOL 5 MG TABLET (FP) PO SCH (12:00)
--- NOTE | 2017-11-05 12:32 | ECHO ---
Name: DAYNA SARMIENTO Exam:Adult Echocardiogram Study Date: 11/05/2017 10:47 AM Age: 72 yrs Reason For Study: SOB Height: 69 in Weight: 212 lb BSA: 2.1 m2 MMode/2D Measurements & Calculations IVSd: 0.82 cm Ao root diam: 3.4 cm LVIDd: 5.2 cm LA dimension: 4.2 cm LVIDs: 4.0 cm LVPWd: 0.82 cm EDV(Teich): 126.9 ml TAPSE: 0.91 cm ESV(Teich): 70.0 ml RV S Desmond: 10.7 cm/sec Doppler Measurements & Calculations MV V2 max: 125.3 cm/sec MV E max desmond: 89.3 cm/sec MV max P.3 mmHg MV A max desmond: 24.7 cm/sec MV V2 mean: 65.7 cm/sec MV E/A: 3.6 MV mean P.1 mmHg MV dec time: 0.17 sec MV V2 VTI: 34.7 cm Ao V2 max: 128.0 cm/sec LV V1 max P.2 mmHg Ao max P.6 mmHg LV V1 max: 102.2 cm/sec MR max desmond: 408.4 cm/sec TR max desmond: 257.9 cm/sec MR max P.8 mmHg TR max P.7 mmHg Med Peak E' Desmond: 9.7 cm/sec Med E/e': 9.3 Lat Peak E' Desmond: 10.5 cm/sec Lat E/e': 8.5 Procedure A complete two-dimensional transthoracic echocardiogram was performed (2D, M-mode, Doppler and color flow Doppler). Left Ventricle The left ventricle is normal in size. Ejection Fraction = 45-50%. Left ventricular systolic function is mildly reduced. There is mild global hypokinesis of the left ventricle. Right Ventricle The right ventricle is normal in size and function. Atria The left atrium is mildly dilated. The right atrium is mildly dilated. Mitral Valve There is mild to moderate mitral regurgitation. Tricuspid Valve There is moderate tricuspid regurgitation. Right ventricular systolic pressure is normal. Aortic Valve The aortic valve is trileaflet. No hemodynamically significant valvular aortic stenosis. No aortic regurgitation is present. Pulmonic Valve Trace pulmonic valvular regurgitation. Great Vessels The aortic root is normal size. Pericardium/Pleura There is no pericardial effusion. Interpretation Summary The left ventricle is normal in size. Left ventricular systolic function is mildly reduced. There is mild global hypokinesis of the left ventricle. The right ventricle is normal in size and function. The left atrium is mildly dilated. The right atrium is mildly dilated. There is mild to moderate mitral regurgitation. There is moderate tricuspid regurgitation. Trace pulmonic valvular regurgitation. MD Zak Hernandez 11/05/2017 12:31 PM
--- NOTE | 2017-11-05 12:41 | CON.PULM ---
Consult Consult Specialty:: PULMONARY Referred by:: JACKI Gardner Reason for Consultation:: shortness of breath - History of Present Illness Chief Complaint: shortness of breath History of Present Illness: 72yo male with h/o asthma, atrial fibrillation on anticoagulation who was admitted with worsening shortness of breath x 3 months. 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 He denies any chest pain or palpitations. He denies coughing but some wheezing. He has had asthma since a child, does have 2nd hand smoke exposure, never been intubated for asthma but has been hospitalized. 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 He does have 10/20 exposure. He is a never smoker. Maintained on Symbicort, Spiriva and albuterol. Self d/c'd singulair. - History Source History Provided By: Patient, Significant Other, Medical Record Limitations to Obtaining History: No Limitations - Past Medical History Cardio/Vascular: Yes: AFIB, CHF Pulmonary: Yes: Asthma - Past Surgical History Past Surgical History: Yes: Hernia Repair (inguinal hernia repair 15 years ago with re repair 1 year ago) - Alcohol/Substance Use Hx Alcohol Use: Yes Number of Drinks Daily: 6 (3 22oz bottles of beer) History of Substance Use: reports: None - Smoking History Smoking history: Never smoked Have you smoked in the past 12 months: No Aproximately how many cigarettes per day: 0 - Social History ADL: Independent History of Recent Travel: No Home Medications - Allergies Allergies/Adverse Reactions: Allergies Allergy/AdvReac Type Severity Reaction Status Date / Time grass pollen-sweet vernal, Allergy Mild Verified 11/04/17 20:39 standardized [grass poll-sweet vernal, std.] - Home Medications Home Medications: Ambulatory Orders Budesonide/Formeterol Fumarate [SYMBICORT 160/4.5mcg -] 1 inh PO DAILY 11/04/17 Nebivolol [Bystolic -] 5 mg PO DAILY 11/04/17 Prednisone 10 mg PO DAILY 11/04/17 Tiotropium [place] [Spiriva Respimat] 4 gm IH DAILY 11/04/17 Warfarin Na [Coumadin] 2 mg PO DAILY 11/04/17 Warfarin Na [Coumadin] 5 mg PO DAILY 11/04/17 Review of Systems - Review of Systems Constitutional: reports: Weakness. denies: Chills, Fever Eyes: denies: Recent Change in Vision HENT: denies: Nasal Congestion, Throat Pain Neck: denies: Stiffness, Tenderness Cardiovascular: reports: Shortness of Breath. denies: Chest Pain, Palpitations Respiratory: reports: Wheezing. denies: Cough, Hemoptysis Gastrointestinal: denies: Abdominal Pain, Nausea, Vomiting Genitourinary: denies: Dysuria, Hematuria Neurological: denies: Dizziness, Headache Endocrine: denies: Unexplained Weight Loss Physical Exam Vital Sings: Vital Signs Temperature 98.8 F 11/05/17 05:00 Pulse Rate 105 H 11/05/17 09:00 Respiratory Rate 20 11/05/17 09:00 Blood Pressure 105/48 L 11/05/17 09:00 O2 Sat by Pulse Oximetry (%) 97 11/05/17 08:59 Constitutional: Yes: Calm Eyes: Yes: Conjunctiva Clear, EOM Intact HENT: Yes: Atraumatic, Normocephalic Neck: Yes: Supple, Trachea Midline Cardiovascular: Yes: Pulse Irregular Respiratory: Yes: Wheezes (scattered) ...Clubbing: No Gastrointestinal: Yes: Normal Bowel Sounds, Soft. No: Tenderness Edema: No Neurological: Yes: Alert, Oriented Labs: CBC, BMP 11/05/17 05:30 11/05/17 05:30 Imaging - Results Chest X-ray: Report Reviewed, Image Reviewed (mild pulmonary vascular congestion ) Assessment/Plan Acute on Chronic Diastolic/Systolic Heart Failure Atrial Fibrillation Asthma r/o COPD - rate control - continue anticoagulation, target INR 2-3 - inhaled bronchodilators - symbicort, spiriva - will add singulair - can defer systemic steroids at this time - will need outpt PFTs and follow up Thank you for this consult Tigre Shore MD
--- NOTE | 2017-11-05 13:11 | CONSULT ---
Consult Consult Specialty:: PM&R - History of Present Illness Chief Complaint: ELIAS History of Present Illness: This is a 72 year old man with a medical history of A fib, asthma, who presented to the ED 11/04/17 with SOB and BLE edema which had been worsening over the past 3 months. He was admitted for acute CHF exacerbation for which Cardiology and Pulmonology were consulted. ELIE as well as transaminitis were noted initially, both improving. Coumadin was held for supratherapeutic INR. UA / UCx were ordered for leukocytosis. Physiatry is being consulted for further recommendations. 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: No: Alzheimer's, CVA, Dementia, Migraine, Multiple Sclerosis, Peripheral Neuropathy, Parkinson's, Seizure, Syncope, TIA, Vertigo, Other Cardio/Vascular: Yes: AFIB, CHF Pulmonary: Yes: Asthma Gastrointestinal: No: Ascites, Cancer, Constipation, Crohn's Disease, Diverticulitis, Diverticulosis, Esophageal Varices, Gastritis, GERD, GI Bleed, Hemorrhoids, Hiatal Hernia, Inflamatory Bowel Disease, Irritable Bowel Disease, Pancreatitis, Peptic Ulcer Disease, Ulcerative Colitis, Other Hepatobiliary: No: Cirrhosis, Cholelithiasis, Cholecystitis, Choledocholithiasis , Hepatitis A, Hepatitis B, Hepatitis C, Other Renal/: No: Renal Failure, Renal Inusuff, BPH, Cancer, Hematuria, Hemodialysis , Neurogenic Bladder, Renal Calculi, UTI, Other Infectious Disease: No: AIDS, C-Diff, Herpes Zoster, HIV, MRSA, STD's, Tuberculosis, VREF, Other Psych: No: Addictions, Anxiety, Bipolar, Depression, Panic, Psychosis, Schizophrenia, Other Musculoskeletal: No: Bursitis, Chronic low back pain, Hemiparesis, Hemiplegia, Osteoarthritis, Paraplegia, Other Rheumatology: No: Fibromyalgia, Gout, Lupus, Rheumatoid Arthritis, Sarcoidosis, Vasculitis, Other ENT: No: Allergic Rhinitis, Sinusitis, Other Endocrine: No: [place]'s Disease, Boyd's Disease, Diabetes Insipidus, Diabetes Mellitus, Hyperparathyroidism, Hyperthyroidism, Hypothyroidism, Osteopenia, SIADH, Other Dermatology: No: Basal Cell, Cellulitis, Eczema, Melanoma, Psoriasis, Squamous Cell, Other - Past Surgical History Past Surgical History: Yes: Hernia Repair (inguinal hernia repair 15 years ago with re repair 1 year ago) - Alcohol/Substance Use Hx Alcohol Use: Yes Number of Drinks Daily: 6 (3 22oz bottles of beer) History of Substance Use: reports: None - Smoking History Smoking history: Never smoked Have you smoked in the past 12 months: No Aproximately how many cigarettes per day: 0 - Social History Usual Living Arrangement: With Spouse (lives with in apartment with ramp to elevator) ADL: Independent (Independent in ADLs/ IADLs without Assistive Device) History of Recent Travel: No Home Medications - Allergies Allergies/Adverse Reactions: Allergies Allergy/AdvReac Type Severity Reaction Status Date / Time grass pollen-sweet vernal, Allergy Mild Verified 11/04/17 20:39 standardized [grass poll-sweet vernal, std.] - Home Medications Home Medications: Ambulatory Orders Budesonide/Formeterol Fumarate [SYMBICORT 160/4.5mcg -] 1 inh PO DAILY 11/04/17 Nebivolol [Bystolic -] 5 mg PO DAILY 11/04/17 Prednisone 10 mg PO DAILY 11/04/17 Tiotropium [place] [Spiriva Respimat] 4 gm IH DAILY 11/04/17 Warfarin Na [Coumadin] 2 mg PO DAILY 11/04/17 Warfarin Na [Coumadin] 5 mg PO DAILY 11/04/17 Review of Systems Findings/Remarks: denies fevers, chills, changes in vision/ hearing/ mood, CP, abdominal pain, nausea, vomiting, constipation, diarrhea, dysuria, muscle/ joint pain, numbness / paresthesias notes ELIAS; no SOB at rest; BLE edema a little worse from baseline Physical Exam Vital Signs: Vital Signs Temperature 98.8 F 11/05/17 05:00 Pulse Rate 105 H 11/05/17 09:00 Respiratory Rate 20 11/05/17 09:00 Blood Pressure 105/48 L 11/05/17 09:00 O2 Sat by Pulse Oximetry (%) 97 11/05/17 08:59 Musculoskeletal: Yes: Other (General: calm elderly AAM lying in bed NAD, AAO x3 N/M: full BUE/ BLE ROM, 4+/5 B HF then 5-/5 BUE/ BLE; Pinprick Intact BUE/ BLE Extremities: 2+ BLE pitting edema, no B calf tenderness) Labs: CBC, BMP 11/05/17 05:30 11/05/17 05:30 Assessment/Plan Impression: 1) Deconditioning 2) Acute CHF exacerbation with hx A fib 3) hx asthma, being seen by Pulm for possible COPD as well 4) ELIE, improving 5) Transaminitis 6) Leukocytosis 7) Overweight 8) No recent flu shot/ pneumovax 9) Anemia Recommendations: 1) PT for stretching strengthening ROM, functional mobility, endurance 2) Falls, safety precautions 3) Cardiopulmonary precautions 4) DVT ppx: supratherapeutic INR 5) Denies constipation on current bowel regimen 6) Monitor CBC given anemia 7) Monitor BMP given electrolyte abnormalities 8) Nutrition consult for weight loss 9) Discharge planning: d/w and pt re: home with services versus [facility], depending on his progress with therapy while hospitalized. He strongly prefers to return home with services. Thank you for this referral.
[2017-11-05] MEDS ORDERED: ALBUTEROL SO4 2.5/IPRATROPIUM 0.5 INH SOL 3 ML VIAL.NEB. NEB SCH (14:00)
[2017-11-05] MEDS ORDERED: METOPROLOL TARTRATE 5 MG/5 ML VIAL IVPUSH ONE (14:45)
[2017-11-05] MEDS ORDERED: METOPROLOL TARTRATE 5 MG/5 ML VIAL ONE (14:54)
[2017-11-05] MEDS ORDERED: dilTIAZem HCL 25 MG/5 ML - 5 ML VIAL IVPUSH PRN (15:47)
[2017-11-05] MEDS: SOTALOL HCL 80 MG TABLET (FP) PO SCH ×2 (18:25→21:45)
[2017-11-05] MEDS: dilTIAZem HCL 30 MG TABLET (FP) PO SCH ×2 (18:25→21:45)
[2017-11-05] MEDS: ATORVASTATIN CA 40 MG TABLET (FP) PO SCH (21:45)
[2017-11-05] MEDS: ALBUTEROL SO4 2.5/IPRATROPIUM 0.5 INH SOL 3 ML VIAL.NEB. NEB PRN (22:20)
[2017-11-06 01:58] LABS: URINE APPEARANCE CLEAR; URINE BILIRUBIN NEGATIVE (<2.0 mg/dL); URINE COLOR YELLOW; URINE GLUCOSE (UA) NEGATIVE (NEGATIVE); URINE KETONE NEGATIVE (NEGATIVE); URINE LEUK ESTERASE NEGATIVE (NEGATIVE); URINE NITRITE NEGATIVE (NEGATIVE); URINE PROTEIN NEGATIVE (NEGATIVE); URINE UROBILINOGEN 4.0 E.U/dl mg/dL (0.2-1.0)
[2017-11-06] MEDS: dilTIAZem HCL 30 MG TABLET (FP) PO SCH ×3 (05:52→21:51)
[2017-11-06 07:22] LABS: BASO % 0.4 % (0-2.0); EOS % 2.6 % (0-4.5); HEMATOCRIT 35.5 % (35.4-49); HEMOGLOBIN 11.4 GM/dL (11.7-16.9); MCH 29.7 pg (25.7-33.7); MCHC 32.2 g/dl (32.0-35.9); MEAN CELL VOLUME 92.4 fl (80-96); MEAN PLT VOLUME 9.8 fl (7.5-11.1); MONO % 11.8 % (3.8-10.2); NEUT % 75.2 % (42.8-82.8); PLATELET COUNT 232 K/MM3 (134-434); RBC 3.85 M/mm3 (4.00-5.60); RDW 13.4 % (11.9-15.9); WHITE BLOOD COUNT 10.9 K/mm3 (4.0-10.0)
[2017-11-06 07:54] LABS: INR 3.2 (0.83-1.09); PROTHROMBIN TIME (PATIENT) 36.2 SEC (9.7-13.0)
[2017-11-06 08:20] LABS: ALBUMIN 2.2 g/dl (3.4-5.0); ALK PHOS 81 U/L (45-117); ANION GAP 4 MMOL/L (8-16); BILIRUBIN,TOTAL 0.7 mg/dL (0.2-1); BLOOD UREA NITROGEN 24 mg/dL (7-18); CHLORIDE 104 mmol/L (98-107); CO2 32 mmol/L (21-32); CREATININE 1.2 mg/dL (0.55-1.3); GLUCOSE,RANDOM 139 mg/dL (74-106); MAGNESIUM 2.2 mg/dL (1.8-2.4); POTASSIUM 4.1 mmol/L (3.5-5.1); SGOT/AST 28 U/L (15-37); SGPT/ALT 46 U/L (13-61); SODIUM 140 mmol/L (136-145); TOT PROT 5.3 g/dl (6.4-8.2)
[2017-11-06] MEDS ORDERED: VALSARTAN 160 MG TABLET (UD) PO SCH (10:00)
[2017-11-06] MEDS ORDERED: FUROSEMIDE 40 MG/4 ML INJECTABLE VIAL IVPUSH SCH (10:00)
[2017-11-06] MEDS: SOTALOL HCL 80 MG TABLET (FP) PO SCH ×2 (10:01→21:54)
[2017-11-06] MEDS: TIOTROPIUM BROMIDE 2.5 MCG (SPIRIVA) RESPIMAT INHALER IH SCH (10:01)
[2017-11-06] MEDS: POTASSIUM CHLORIDE ORAL LIQUID 20 MEQ/15 ML PO SCH (10:01)
[2017-11-06] MEDS: VALSARTAN 80 MG TABLET (UD) PO SCH (10:01)
[2017-11-06] MEDS: BUDESONIDE/FORMETEROL FUMARATE 160/4.5 mcg INHALER IH SCH ×2 (10:02→21:51)
[2017-11-06] MEDS ORDERED: PT OWN MED DRAWER 7, Y5N ONE (10:35)
--- NOTE | 2017-11-06 10:37 | PN ---
Progress Note, Physician History of Present Illness: Afib with improved rate-control, review of INR logs confirm therapeutic INR last few weeks. - Current Medication List Current Medications: Active Medications Albuterol/Ipratropium (Duoneb -) 1 amp NEB Q8H PRN PRN Reason: WHEEZING Last Admin: 11/05/17 22:20 Dose: 1 amp Atorvastatin Calcium (Lipitor -) 40 mg PO HS [facility] Last Admin: 11/05/17 21:45 Dose: 40 mg Budesonide/Formoterol Fumarate (Symbicort 160/4.5mcg -) 2 puff IH BID [facility] Last Admin: 11/06/17 10:02 Dose: 2 puff Diltiazem HCl (Cardizem Injection -) 5 mg IVPUSH Q4H PRN PRN Reason: TACHYCARDIA Diltiazem HCl (Cardizem -) 30 mg PO TID [facility] Last Admin: 11/06/17 05:52 Dose: 30 mg Furosemide (Lasix Injection -) 40 mg IVPUSH DAILY [facility] Last Admin: 11/06/17 10:01 Dose: 40 mg Potassium Chloride (Potassium Chloride Oral Liquid) 40 meq PO BID [facility] Last Admin: 11/06/17 10:01 Dose: Not Given Sotalol HCl (Betapace -) 80 mg PO BID [facility] Last Admin: 11/06/17 10:01 Dose: 80 mg Tiotropium [place] (Spiriva Respimat) 2 puff IH DAILY [facility] Last Admin: 11/06/17 10:01 Dose: 2 puff Valsartan (Diovan -) 80 mg PO DAILY [facility] Last Admin: 11/06/17 10:01 Dose: 80 mg - Objective Vital Signs: Vital Signs Temperature 98.3 F 11/06/17 05:00 Pulse Rate 82 11/06/17 05:00 Respiratory Rate 18 11/06/17 07:48 Blood Pressure 107/59 L 11/06/17 05:00 O2 Sat by Pulse Oximetry (%) 97 11/06/17 07:48 Constitutional: Yes: No Distress, Calm Neck: Yes: Supple Cardiovascular: Yes: Pulse Irregular Respiratory: Yes: Regular, CTA Bilaterally Gastrointestinal: Yes: Normal Bowel Sounds, Soft Edema: Yes Edema: LLE: Trace, RLE: 1+ Labs: CBC, BMP 11/06/17 05:50 11/06/17 05:50 INR, PTT INR 3.20 (0.83-1.09) H 11/06/17 05:50 - ....Imaging EKG: Report Reviewed (Coarse Afib @ 88 with PVC QTc 474 msec) Problem List - Problems (1) Acute exacerbation of CHF (congestive heart failure) Code(s): I50.9 - HEART FAILURE, UNSPECIFIED Qualifiers: Heart failure type: combined systolic and diastolic Qualified Code(s): I50.43 - Acute on chronic combined systolic (congestive) and diastolic ( congestive) heart failure (2) Afib Code(s): I48.91 - UNSPECIFIED ATRIAL FIBRILLATION Qualifiers: Atrial fibrillation type: paroxysmal Qualified Code(s): I48.0 - Paroxysmal atrial fibrillation (3) Asthma Code(s): J45.909 - UNSPECIFIED ASTHMA, UNCOMPLICATED Qualifiers: Asthma severity: moderate Asthma persistence: persistent (4) Supratherapeutic INR Code(s): R79.1 - ABNORMAL COAGULATION PROFILE (5) Hypertensive cardiovascular disease Code(s): I11.9 - HYPERTENSIVE HEART DISEASE WITHOUT HEART FAILURE Qualifiers: Heart failure presence: with heart failure Heart failure type: combined systolic and diastolic Heart failure chronicity: acute on chronic Qualified Code(s): I11.0 - Hypertensive heart disease with heart failure; I50.43 - Acute on chronic combined systolic (congestive) and diastolic (congestive) heart failure Assessment/Plan August 14, 2017 cLVH with abnormal septal motion, normal LVEF 65-70%, MAC, mild LAE 4.7 cm, CHAVA, mild MR, mild-mod TR RVSP 32 mmHg April 20, 2014 Nuc stress: No ischemia LVEF 63% A: 1. Improving acute on chronic diastolic heart failure in context of 2. Paroxysmal atrial fibrillation with RVR with supratherapeutic INR 3. Hypertensive cardiovascular disease 4. Reactive airway disease/bronchial asthma r/o COPD P:1. Resume oral diuresis with monitor diuretic response, renal function and electrolytes 2. Changed Bystolic to Sotalol 80 bid, cardizem as needed for rate-control, plan for DCCV today, given h/o therapeutic INR, KAREN-guidance will not be necessary, continue Diovan 80 qd and Lipitor 40 qhs 3. Hold coumadin for INR 2-3, advised switch to DOAC once INR<2 given benefits over coumadin, he will reconsider 4. BD, singulair, O2 as needed, outpatient PFTs
--- NOTE | 2017-11-06 11:37 | PN ---
Progress Note, Physician History of Present Illness: PULMONARY ALERT,-RESP DISTRESS,-TACHYPNEA - Current Medication List Current Medications: Active Medications Albuterol/Ipratropium (Duoneb -) 1 amp NEB Q8H PRN PRN Reason: WHEEZING Last Admin: 11/05/17 22:20 Dose: 1 amp Atorvastatin Calcium (Lipitor -) 40 mg PO HS [facility] Last Admin: 11/05/17 21:45 Dose: 40 mg Budesonide/Formoterol Fumarate (Symbicort 160/4.5mcg -) 2 puff IH BID [facility] Last Admin: 11/06/17 10:02 Dose: 2 puff Diltiazem HCl (Cardizem Injection -) 5 mg IVPUSH Q4H PRN PRN Reason: TACHYCARDIA Diltiazem HCl (Cardizem -) 30 mg PO TID [facility] Last Admin: 11/06/17 05:52 Dose: 30 mg Furosemide (Lasix Injection -) 40 mg IVPUSH DAILY [facility] Last Admin: 11/06/17 10:01 Dose: 40 mg Potassium Chloride (Potassium Chloride Oral Liquid) 40 meq PO BID [facility] Last Admin: 11/06/17 10:01 Dose: Not Given Sotalol HCl (Betapace -) 80 mg PO BID [facility] Last Admin: 11/06/17 10:01 Dose: 80 mg Tiotropium [place] (Spiriva Respimat) 2 puff IH DAILY [facility] Last Admin: 11/06/17 10:01 Dose: 2 puff Valsartan (Diovan -) 80 mg PO DAILY [facility] Last Admin: 11/06/17 10:01 Dose: 80 mg - Objective Vital Signs: Vital Signs Temperature 98.3 F 11/06/17 05:00 Pulse Rate 82 11/06/17 05:00 Respiratory Rate 18 11/06/17 07:48 Blood Pressure 107/59 L 11/06/17 05:00 O2 Sat by Pulse Oximetry (%) 97 11/06/17 07:48 Constitutional: Yes: Well Nourished, Calm Eyes: Yes: WNL HENT: Yes: WNL Neck: Yes: WNL Cardiovascular: Yes: Pulse Irregular, S1, S2 Respiratory: Yes: Rales (BIBASILAR CRACKLES) Gastrointestinal: Yes: Normal Bowel Sounds Extremities: Yes: WNL Edema: Yes Labs: CBC, BMP 11/06/17 05:50 11/06/17 05:50 INR, PTT INR 3.20 (0.83-1.09) H 11/06/17 05:50 Problem List - Problems (1) Acute exacerbation of CHF (congestive heart failure) Code(s): I50.9 - HEART FAILURE, UNSPECIFIED Qualifiers: Heart failure type: combined systolic and diastolic Qualified Code(s): I50.43 - Acute on chronic combined systolic (congestive) and diastolic ( congestive) heart failure (2) Afib Code(s): I48.91 - UNSPECIFIED ATRIAL FIBRILLATION Qualifiers: Atrial fibrillation type: paroxysmal Qualified Code(s): I48.0 - Paroxysmal atrial fibrillation (3) Asthma Code(s): J45.909 - UNSPECIFIED ASTHMA, UNCOMPLICATED Qualifiers: Asthma severity: moderate Asthma persistence: persistent (4) Dyspnea on exertion Code(s): R06.09 - OTHER FORMS OF DYSPNEA (5) Elevated INR Code(s): R79.1 - ABNORMAL COAGULATION PROFILE Assessment/Plan Assessment/Plan Acute on Chronic Diastolic/Systolic Heart Failure Atrial Fibrillation Asthma r/o COPD - rate control - continue anticoagulation, target INR 2-3 - inhaled bronchodilators - symbicort, spiriva - singulair - outpt PFTs and follow up DR HERRING
--- NOTE | 2017-11-06 12:11 | PN ---
Progress Note, Physician Chief Complaint: Pt sitting in bed in no acute distress. feels breathing tight today. Otherwise, denies any chest pain/sob at rest, n/v/d - Current Medication List Current Medications: Active Medications Albuterol/Ipratropium (Duoneb -) 1 amp NEB Q8H PRN PRN Reason: WHEEZING Last Admin: 11/05/17 22:20 Dose: 1 amp Atorvastatin Calcium (Lipitor -) 40 mg PO HS COUNTS [facility]CLUDE 234 BEDS AT [facility] Last Admin: 11/05/17 21:45 Dose: 40 mg Budesonide/Formoterol Fumarate (Symbicort 160/4.5mcg -) 2 puff IH BID COUNTS [facility]CLUDE 234 BEDS AT [facility] Last Admin: 11/06/17 10:02 Dose: 2 puff Diltiazem HCl (Cardizem Injection -) 5 mg IVPUSH Q4H PRN PRN Reason: TACHYCARDIA Diltiazem HCl (Cardizem -) 30 mg PO TID COUNTS [facility]CLUDE 234 BEDS AT [facility] Last Admin: 11/06/17 05:52 Dose: 30 mg Furosemide (Lasix Injection -) 40 mg IVPUSH DAILY COUNTS [facility]CLUDE 234 BEDS AT THE [facility] Last Admin: 11/06/17 10:01 Dose: 40 mg Sotalol HCl (Betapace -) 80 mg PO BID COUNTS [facility]CLUDE 234 BEDS AT THE [facility] Last Admin: 11/06/17 10:01 Dose: 80 mg Tiotropium [place] (Spiriva Respimat) 2 puff IH DAILY COUNTS [facility]CLUDE 234 BEDS AT [facility] Last Admin: 11/06/17 10:01 Dose: 2 puff Valsartan (Diovan -) 80 mg PO DAILY COUNTS [facility]CLUDE 234 BEDS AT [facility] Last Admin: 11/06/17 10:01 Dose: 80 mg - Objective Vital Signs: Vital Signs Temperature 98.3 F 11/06/17 05:00 Pulse Rate 94 H 11/06/17 09:00 Respiratory Rate 18 11/06/17 07:48 Blood Pressure 105/48 L 11/06/17 09:00 O2 Sat by Pulse Oximetry (%) 97 11/06/17 07:48 Constitutional: Yes: Well Nourished, No Distress, Calm Cardiovascular: Yes: Pulse Irregular Respiratory: Yes: Regular, SOB on Exertion, Wheezes (scattered). No: Accessory Muscle Use, Rales, Rhonchi, Tachypnea Gastrointestinal: Yes: WNL, Normal Bowel Sounds, Soft. No: Distention, Tenderness Genitourinary: Yes: WNL Edema: Yes Edema: LLE: 2+, RLE: 2+ Neurological: Yes: WNL, Alert, Oriented Psychiatric: Yes: WNL, Alert, Oriented Labs: CBC, BMP 11/06/17 05:50 11/06/17 05:50 INR, PTT INR 3.20 (0.83-1.09) H 11/06/17 05:50 Problem List - Problems (1) Acute exacerbation of CHF (congestive heart failure) Code(s): I50.9 - HEART FAILURE, UNSPECIFIED Qualifiers: Heart failure type: combined systolic and diastolic Qualified Code(s): I50.43 - Acute on chronic combined systolic (congestive) and diastolic ( congestive) heart failure (2) Atrial fibrillation with RVR Code(s): I48.91 - UNSPECIFIED ATRIAL FIBRILLATION (3) Afib Code(s): I48.91 - UNSPECIFIED ATRIAL FIBRILLATION Qualifiers: Atrial fibrillation type: paroxysmal Qualified Code(s): I48.0 - Paroxysmal atrial fibrillation (4) Dyspnea on exertion Code(s): R06.09 - OTHER FORMS OF DYSPNEA (5) ELIE (acute kidney injury) Code(s): N17.9 - ACUTE KIDNEY FAILURE, UNSPECIFIED (6) Transaminitis Code(s): R74.0 - NONSPEC ELEV OF LEVELS OF TRANSAMNS & LACTIC ACID DEHYDRGNSE (7) Supratherapeutic INR Code(s): R79.1 - ABNORMAL COAGULATION PROFILE (8) Leukocytosis Code(s): D72.829 - ELEVATED WHITE BLOOD CELL COUNT, UNSPECIFIED (9) Hypokalemia Code(s): E87.6 - HYPOKALEMIA (10) Hypomagnesemia Code(s): E83.42 - HYPOMAGNESEMIA (11) Asthma Code(s): J45.909 - UNSPECIFIED ASTHMA, UNCOMPLICATED Qualifiers: Asthma severity: moderate Asthma persistence: persistent (12) HLD (hyperlipidemia) Code(s): E78.5 - HYPERLIPIDEMIA, UNSPECIFIED (13) Hemoglobin A1c less than 7.0% Code(s): R73.09 - OTHER ABNORMAL GLUCOSE Assessment/Plan (1) Acute exacerbation of CHF (congestive heart failure) Assessment/Plan: acute on chronic, underlying afib presents w/ worsening sob on exertion, LE edema echo- ef mildly reduced ef,diastolic dysfunction satting >92% on RA transitioned to po lasix daily weights low na diet cardiology following Code(s): I50.9 - HEART FAILURE, UNSPECIFIED Qualifiers: Heart failure type: combined systolic and diastolic Qualified Code(s): I50.43 - Acute on chronic combined systolic (congestive) and diastolic ( congestive) heart failure (2) Atrial fibrillation with RVR Assessment/Plan: plan for cardioversion today sotalol started- needs 72 hours monitoring cardiology following Code(s): I48.91 - UNSPECIFIED ATRIAL FIBRILLATION (3) Afib Assessment/Plan: started on sotalol coumadin HELD monitor INR Code(s): I48.91 - UNSPECIFIED ATRIAL FIBRILLATION Qualifiers: Atrial fibrillation type: paroxysmal Qualified Code(s): I48.0 - Paroxysmal atrial fibrillation (4) Dyspnea on exertion Assessment/Plan: as above Code(s): R06.09 - OTHER FORMS OF DYSPNEA (5) ELIE (acute kidney injury) Assessment/Plan: resolved Code(s): N17.9 - ACUTE KIDNEY FAILURE, UNSPECIFIED (6) Transaminitis Assessment/Plan: 2/2 hepatic congestion 2/2 chf resolved Code(s): R74.0 - NONSPEC ELEV OF LEVELS OF TRANSAMNS & LACTIC ACID DEHYDRGNSE (7) Supratherapeutic INR Assessment/Plan: improving continue to hold coumadin and watch DOAC if pt prefers no overt signs of bleeding Code(s): R79.1 - ABNORMAL COAGULATION PROFILE (8) Leukocytosis Assessment/Plan: improved does not suspect infectious etiology UA/UC ordered Code(s): D72.829 - ELEVATED WHITE BLOOD CELL COUNT, UNSPECIFIED (9) Hypokalemia Assessment/Plan: resolved Code(s): E87.6 - HYPOKALEMIA (10) Hypomagnesemia Assessment/Plan: resolved Code(s): E83.42 - HYPOMAGNESEMIA (11) Asthma Assessment/Plan: wheezing on exam symbicord/spiriva continue nebs prn pulm following Code(s): J45.909 - UNSPECIFIED ASTHMA, UNCOMPLICATED Qualifiers: Asthma severity: moderate Asthma persistence: persistent (12) HLD (hyperlipidemia) Assessment/Plan: controlled continue statin Code(s): E78.5 - HYPERLIPIDEMIA, UNSPECIFIED (13) Hemoglobin A1c less than 7.0% Assessment/Plan: HgA1C 6.6, recommend close outpt monitoring Code(s): R73.09 - OTHER ABNORMAL GLUCOSE
--- NOTE | 2017-11-06 14:49 | EKG ---
Test Reason : Blood Pressure : / mmHG Vent. Rate : 065 BPM Atrial Rate : 065 BPM P-R Int : 178 ms QRS Dur : 084 ms QT Int : 484 ms P-R-T Axes : 059 064 029 degrees QTc Int : 503 ms SINUS RHYTHM WITH OCCASIONAL PREMATURE VENTRICULAR COMPLEXES AND PREMATURE ATRIAL COMPLEXES NONSPECIFIC T WAVE ABNORMALITY PROLONGED QT ABNORMAL ECG WHEN COMPARED WITH ECG OF 06-NOV-2017 09:25, SINUS RHYTHM HAS REPLACED ATRIAL FIBRILLATION Confirmed by SOLA QUIROZ MD ([id number]) on 11/06/2017 2:48:39 PM Referred By: Confirmed By:SOLA QUIROZ MD
--- NOTE | 2017-11-06 14:50 | PN ---
Progress Note (short form) - Note Progress Note: Procedure Note: DC Cardioversion Indication: Persistent atrial flutter/fibrillation with RVR After risks and benefits of DCCV reviewed, compliance with anticoagulation affirmed by patient, informed consent obtained and time out reviewed, patient underwent deep sedation with Propofol administered by anesthesia. He then underwent successful DCCV with 120J followed by 150 J synchronized discharge. Post-DCCV ECG confirms re-establishment of NSR Recommendations: Continue Sotalol 80 bid, Cardizem 30 tid as HR tolerates, Diovan 80 qd and coumadin per INR Complications: None Problem List - Problems (1) Acute exacerbation of CHF (congestive heart failure) Code(s): I50.9 - HEART FAILURE, UNSPECIFIED Qualifiers: Heart failure type: combined systolic and diastolic Qualified Code(s): I50.43 - Acute on chronic combined systolic (congestive) and diastolic ( congestive) heart failure (2) Afib Code(s): I48.91 - UNSPECIFIED ATRIAL FIBRILLATION Qualifiers: Atrial fibrillation type: paroxysmal Qualified Code(s): I48.0 - Paroxysmal atrial fibrillation (3) Asthma Code(s): J45.909 - UNSPECIFIED ASTHMA, UNCOMPLICATED Qualifiers: Asthma severity: moderate Asthma persistence: persistent (4) Supratherapeutic INR Code(s): R79.1 - ABNORMAL COAGULATION PROFILE (5) Hypertensive cardiovascular disease Code(s): I11.9 - HYPERTENSIVE HEART DISEASE WITHOUT HEART FAILURE Qualifiers: Heart failure presence: with heart failure Heart failure type: combined systolic and diastolic Heart failure chronicity: acute on chronic Qualified Code(s): I11.0 - Hypertensive heart disease with heart failure; I50.43 - Acute on chronic combined systolic (congestive) and diastolic (congestive) heart failure (6) Encounter for cardioversion procedure Code(s): Z01.89 - ENCOUNTER FOR OTHER SPECIFIED SPECIAL EXAMINATIONS
[2017-11-06] MEDS: ALBUTEROL SO4 2.5/IPRATROPIUM 0.5 INH SOL 3 ML VIAL.NEB. NEB PRN (20:25)
[2017-11-06] MEDS: ATORVASTATIN CA 40 MG TABLET (FP) PO SCH (21:51)
[2017-11-07] MEDS: dilTIAZem HCL 30 MG TABLET (FP) PO SCH ×3 (05:42→21:26)
[2017-11-07 07:07] LABS: BASO % 0.6 % (0-2.0); EOS % 4.4 % (0-4.5); HEMATOCRIT 34.7 % (35.4-49); HEMOGLOBIN 11.3 GM/dL (11.7-16.9); LYMPH % 13.3 % (8-40); MCH 30.3 pg (25.7-33.7); MCHC 32.5 g/dl (32.0-35.9); MEAN PLT VOLUME 9.1 fl (7.5-11.1); MONO % 14.6 % (3.8-10.2); NEUT % 67.1 % (42.8-82.8); PLATELET COUNT 257 K/MM3 (134-434); RBC 3.74 M/mm3 (4.00-5.60); RDW 13.3 % (11.9-15.9); WHITE BLOOD COUNT 9.8 K/mm3 (4.0-10.0)
[2017-11-07 07:16] LABS: INR 2.11 (0.83-1.09); PROTHROMBIN TIME (PATIENT) 25.1 SEC (9.7-13.0)
[2017-11-07] MEDS: ALBUTEROL SO4 2.5/IPRATROPIUM 0.5 INH SOL 3 ML VIAL.NEB. NEB PRN ×2 (07:37→18:49)
[2017-11-07 07:52] LABS: ALBUMIN 2.3 g/dl (3.4-5.0); ALK PHOS 68 U/L (45-117); ANION GAP 7 MMOL/L (8-16); BILIRUBIN,TOTAL 0.8 mg/dL (0.2-1); BLOOD UREA NITROGEN 18 mg/dL (7-18); CALCIUM 8.5 mg/dL (8.5-10.1); CHLORIDE 104 mmol/L (98-107); CO2 32 mmol/L (21-32); CREATININE 1.1 mg/dL (0.55-1.3); GLUCOSE,RANDOM 108 mg/dL (74-106); POTASSIUM 4.4 mmol/L (3.5-5.1); SGOT/AST 20 U/L (15-37); SGPT/ALT 39 U/L (13-61); SODIUM 142 mmol/L (136-145); TOT PROT 5.3 g/dl (6.4-8.2)
[2017-11-07] MEDS: SOTALOL HCL 80 MG TABLET (FP) PO SCH ×3 (10:05→21:26)
[2017-11-07] MEDS: VALSARTAN 80 MG TABLET (UD) PO SCH (10:05)
[2017-11-07] MEDS: FUROSEMIDE 40 MG TABLET (FP) PO SCH (10:05)
[2017-11-07] MEDS: BUDESONIDE/FORMETEROL FUMARATE 160/4.5 mcg INHALER IH SCH ×2 (10:06→21:25)
[2017-11-07] MEDS: TIOTROPIUM BROMIDE 2.5 MCG (SPIRIVA) RESPIMAT INHALER IH SCH (10:06)
--- NOTE | 2017-11-07 11:42 | PN ---
Progress Note, Physician Chief Complaint: Events noted Awake and alert Not in distress History of Present Illness: Patient was seen and examined. Awake and alert. Chart was reviewed Denies chest pain, SOB or palpitation Sinus rhythm - Current Medication List Current Medications: Active Medications Albuterol/Ipratropium (Duoneb -) 1 amp NEB Q8H PRN PRN Reason: WHEEZING Last Admin: 11/07/17 07:37 Dose: 1 amp Atorvastatin Calcium (Lipitor -) 40 mg PO HS [facility] Last Admin: 11/06/17 21:51 Dose: 40 mg Budesonide/Formoterol Fumarate (Symbicort 160/4.5mcg -) 2 puff IH BID [facility] Last Admin: 11/07/17 10:06 Dose: 2 puff Diltiazem HCl (Cardizem Injection -) 5 mg IVPUSH Q4H PRN PRN Reason: TACHYCARDIA Diltiazem HCl (Cardizem -) 30 mg PO TID [facility] Last Admin: 11/07/17 05:42 Dose: 30 mg Furosemide (Lasix -) 40 mg PO DAILY [facility] Last Admin: 11/07/17 10:05 Dose: Not Given Sotalol HCl (Betapace -) 80 mg PO BID [facility] Last Admin: 11/07/17 10:05 Dose: Not Given Tiotropium [place] (Spiriva Respimat) 2 puff IH DAILY [facility] Last Admin: 11/07/17 10:06 Dose: 2 puff Valsartan (Diovan -) 80 mg PO DAILY [facility] Last Admin: 11/07/17 10:05 Dose: Not Given - Objective Vital Signs: Vital Signs Temperature 98.3 F 11/07/17 05:00 Pulse Rate 82 11/07/17 05:00 Respiratory Rate 18 11/07/17 08:33 Blood Pressure 131/71 11/07/17 05:00 O2 Sat by Pulse Oximetry (%) 94 L 11/07/17 08:33 Neck: Yes: Supple Cardiovascular: Yes: Regular Rate and Rhythm, S1, S2 Respiratory: Yes: CTA Bilaterally Gastrointestinal: Yes: Normal Bowel Sounds, Soft. No: Tenderness Edema: No Additional Findings/Remarks: HEENT: denies: headache , photophobia, blurring of vision CARD: denies: chest pain, SOB, palpitation RESP: denies: cough, sputum production, hemopysis, SOB on exertion GI: denies: nausea, vomiting, diarrhea, abdominal pain, hematemesis, melena MUSC: denies: joint pain NEURO: denies: headache, photophobia, blurring of vision Labs: CBC, BMP 11/07/17 06:10 11/07/17 06:10 INR, PTT INR 2.11 (0.83-1.09) H 11/07/17 06:10 Problem List - Problems (1) Acute exacerbation of CHF (congestive heart failure) Code(s): I50.9 - HEART FAILURE, UNSPECIFIED Qualifiers: Heart failure type: combined systolic and diastolic Qualified Code(s): I50.43 - Acute on chronic combined systolic (congestive) and diastolic ( congestive) heart failure (2) Afib Code(s): I48.91 - UNSPECIFIED ATRIAL FIBRILLATION Qualifiers: Atrial fibrillation type: paroxysmal Qualified Code(s): I48.0 - Paroxysmal atrial fibrillation (3) COPD (chronic obstructive pulmonary disease) Code(s): J44.9 - CHRONIC OBSTRUCTIVE PULMONARY DISEASE, UNSPECIFIED (4) Dyspnea on exertion Code(s): R06.09 - OTHER FORMS OF DYSPNEA (5) HLD (hyperlipidemia) Code(s): E78.5 - HYPERLIPIDEMIA, UNSPECIFIED Qualifiers: Hyperlipidemia type: pure hypercholesterolemia Qualified Code(s): E78.00 - Pure hypercholesterolemia, unspecified; E78.0 - Pure hypercholesterolemia (6) Hypertensive cardiovascular disease Code(s): I11.9 - HYPERTENSIVE HEART DISEASE WITHOUT HEART FAILURE Qualifiers: Heart failure presence: with heart failure Heart failure type: combined systolic and diastolic Heart failure chronicity: acute on chronic Qualified Code(s): I11.0 - Hypertensive heart disease with heart failure; I50.43 - Acute on chronic combined systolic (congestive) and diastolic (congestive) heart failure Assessment/Plan 1. Improving acute on chronic diastolic heart failure 2. Paroxysmal atrial fibrillation with RVR 3. Hypertensive cardiovascular disease 4. Reactive airway disease/bronchial asthma/COPD PLAN: 1. Oral diuresis with monitor renal function and electrolytes 2. Continue Sotalol 80 bid and Cardizem as needed for rate-control, post DCCV. Continue Diovan 80 qd and Lipitor 40 qh 3. Consider NOAC instead of Coumadin 4. Bronchodilator, O2 as needed and outpatient PFTs 5. Monitor QT Further plans are to follow
--- NOTE | 2017-11-07 12:15 | PN ---
Progress Note (short form) - Note Progress Note: PULMONARY s/p DCCV now in sinus rhythm. States breathing is improving. +chronic wheeze. Vital Signs Period Temp Pulse Resp BP Sys/[place] Pulse Ox Last 24 Hr 97.7 F-99.3 F 50-82 17-21 91-131/50-71 94-98 Gen: NAD at rest Heart: RRR Lung: scattered wheeze Abd: soft, nontender Ext: no edema CBC, BMP 11/07/17 06:10 11/07/17 06:10 Active Medications Albuterol/Ipratropium (Duoneb -) 1 amp NEB Q8H PRN PRN Reason: WHEEZING Last Admin: 11/07/17 07:37 Dose: 1 amp Atorvastatin Calcium (Lipitor -) 40 mg PO HS [facility] Last Admin: 11/06/17 21:51 Dose: 40 mg Budesonide/Formoterol Fumarate (Symbicort 160/4.5mcg -) 2 puff IH BID [facility] Last Admin: 11/07/17 10:06 Dose: 2 puff Diltiazem HCl (Cardizem Injection -) 5 mg IVPUSH Q4H PRN PRN Reason: TACHYCARDIA Diltiazem HCl (Cardizem -) 30 mg PO TID [facility] Last Admin: 11/07/17 05:42 Dose: 30 mg Furosemide (Lasix -) 40 mg PO DAILY [facility] Last Admin: 11/07/17 10:05 Dose: Not Given Sotalol HCl (Betapace -) 80 mg PO BID [facility] Last Admin: 11/07/17 10:05 Dose: Not Given Tiotropium [place] (Spiriva Respimat) 2 puff IH DAILY [facility] Last Admin: 11/07/17 10:06 Dose: 2 puff Valsartan (Diovan -) 80 mg PO DAILY [facility] Last Admin: 11/07/17 10:05 Dose: Not Given A/P Acute on Chronic Diastolic/Systolic Heart Failure Atrial Fibrillation Asthma r/o COPD - rate/rhythm control - continue anticoagulation, target INR 2-3 - inhaled bronchodilators - symbicort, spiriva - singulair - can defer systemic steroids at this time - will need outpt PFTs and follow up
[2017-11-07 13:09] LABS: ANISOCYTOSIS 0; MACROCYTOSIS 0; PLATELET ESTIMATE NORMAL
--- NOTE | 2017-11-07 18:25 | PN ---
Progress Note, Physician Chief Complaint: No new complaints - Current Medication List Current Medications: Active Medications Albuterol/Ipratropium (Duoneb -) 1 amp NEB Q8H PRN PRN Reason: WHEEZING Last Admin: 11/07/17 07:37 Dose: 1 amp Atorvastatin Calcium (Lipitor -) 40 mg PO HS [facility] Last Admin: 11/06/17 21:51 Dose: 40 mg Budesonide/Formoterol Fumarate (Symbicort 160/4.5mcg -) 2 puff IH BID [facility] Last Admin: 11/07/17 10:06 Dose: 2 puff Diltiazem HCl (Cardizem Injection -) 5 mg IVPUSH Q4H PRN PRN Reason: TACHYCARDIA Diltiazem HCl (Cardizem -) 30 mg PO TID [facility] Last Admin: 11/07/17 15:01 Dose: 30 mg Furosemide (Lasix -) 40 mg PO DAILY [facility] Last Admin: 11/07/17 10:05 Dose: Not Given Montelukast Sodium (Singulair -) 10 mg PO [facility] Sotalol HCl (Betapace -) 80 mg PO BID [facility] Last Admin: 11/07/17 12:49 Dose: 80 mg Tiotropium [place] (Spiriva Respimat) 2 puff IH DAILY [facility] Last Admin: 11/07/17 10:06 Dose: 2 puff Valsartan (Diovan -) 80 mg PO DAILY [facility] Last Admin: 11/07/17 10:05 Dose: Not Given - Objective Vital Signs: Vital Signs Temperature 98.4 F 11/07/17 14:00 Pulse Rate 74 11/07/17 14:00 Respiratory Rate 20 11/07/17 09:00 Blood Pressure 108/62 11/07/17 14:00 O2 Sat by Pulse Oximetry (%) 94 L 11/07/17 08:33 Constitutional: Not in distress Well Nourished, No Distress, Calm HEENT: mm moist, o aemia CHEST: CTA B/L Minimal wheezes Cardiovascular: Regular S1S2 n Pulse Irregular Gastrointestinal: WNL, Normal Bowel Sounds, Soft. No: Distention, Tenderness Edema: LLE: 2+, RLE: 2+ Pulses + Neurological: AOc3 non focal Psychiatric:: WNL, Alert, Oriented Labs: CBC, BMP 11/07/17 06:10 11/07/17 06:10 INR, PTT INR 2.11 (0.83-1.09) H 11/07/17 06:10 Problem List - Problems (1) Atrial fibrillation with RVR Assessment/Plan: Converted to NSR s/p Cardioversion cont AC F/U INR Code(s): I48.91 - UNSPECIFIED ATRIAL FIBRILLATION (2) Acute exacerbation of CHF (congestive heart failure) Assessment/Plan: Improving with rate control at present asymptomatic Code(s): I50.9 - HEART FAILURE, UNSPECIFIED Qualifiers: Heart failure type: combined systolic and diastolic Qualified Code(s): I50.43 - Acute on chronic combined systolic (congestive) and diastolic ( congestive) heart failure (3) COPD (chronic obstructive pulmonary disease) Assessment/Plan: Cont Hoe meds and PRN DuoNeb Code(s): J44.9 - CHRONIC OBSTRUCTIVE PULMONARY DISEASE, UNSPECIFIED (4) Elevated INR Assessment/Plan: Trended normal resume AC Code(s): R79.1 - ABNORMAL COAGULATION PROFILE (5) Hypertensive cardiovascular disease Assessment/Plan: Well controlled BP Cont all home meds Code(s): I11.9 - HYPERTENSIVE HEART DISEASE WITHOUT HEART FAILURE Qualifiers: Heart failure presence: with heart failure Heart failure type: combined systolic and diastolic Heart failure chronicity: acute on chronic Qualified Code(s): I11.0 - Hypertensive heart disease with heart failure; I50.43 - Acute on chronic combined systolic (congestive) and diastolic (congestive) heart failure
[2017-11-07] MEDS ORDERED: WARFARIN NA 2 MG TABLET (UD) PO SCH (18:30)
[2017-11-07] MEDS: MONTELUKAST NA 10 MG TABLET PO SCH (21:26)
[2017-11-07] MEDS: ATORVASTATIN CA 40 MG TABLET (FP) PO SCH (21:26)
--- NOTE | 2017-11-07 23:04 | EKG ---
Test Reason : Blood Pressure : / mmHG Vent. Rate : 066 BPM Atrial Rate : 066 BPM P-R Int : 188 ms QRS Dur : 092 ms QT Int : 472 ms P-R-T Axes : 075 068 029 degrees QTc Int : 494 ms SINUS RHYTHM WITH BLOCKED PREMATURE ATRIAL COMPLEXES MODERATE VOLTAGE CRITERIA FOR LVH, MAY BE NORMAL VARIANT NONSPECIFIC T WAVE ABNORMALITY PROLONGED QT ABNORMAL ECG WHEN COMPARED WITH ECG OF 06-NOV-2017 14:04, PREMATURE VENTRICULAR COMPLEXES ARE NO LONGER PRESENT Confirmed by ARCHANA NAVARRO MD ([id number]) on 11/07/2017 11:03:55 PM Referred By: Anisha BOYLE Confirmed By:ARCHANA NAVARRO MD
[2017-11-08] MEDS: dilTIAZem HCL 30 MG TABLET (FP) PO SCH ×3 (06:59→21:54)
[2017-11-08 07:21] LABS: BASO % 0.5 % (0-2.0); HEMATOCRIT 35.8 % (35.4-49); HEMOGLOBIN 11.4 GM/dL (11.7-16.9); LYMPH % 14.3 % (8-40); MCH 29.6 pg (25.7-33.7); MCHC 31.9 g/dl (32.0-35.9); MEAN PLT VOLUME 8.6 fl (7.5-11.1); MONO % 16.4 % (3.8-10.2); NEUT % 64.8 % (42.8-82.8); PLATELET COUNT 259 K/MM3 (134-434); RBC 3.85 M/mm3 (4.00-5.60); WHITE BLOOD COUNT 8.8 K/mm3 (4.0-10.0)
[2017-11-08 07:34] LABS: INR 1.54 (0.83-1.09); PROTHROMBIN TIME (PATIENT) 18.3 SEC (9.7-13.0)
[2017-11-08 08:59] LABS: ANION GAP 4 MMOL/L (8-16); BLOOD UREA NITROGEN 14 mg/dL (7-18); CALCIUM 8.9 mg/dL (8.5-10.1); CHLORIDE 106 mmol/L (98-107); CO2 30 mmol/L (21-32); CREATININE 1.2 mg/dL (0.55-1.3); GLUCOSE,RANDOM 104 mg/dL (74-106); MAGNESIUM 2.2 mg/dL (1.8-2.4); POTASSIUM 4.6 mmol/L (3.5-5.1); SODIUM 140 mmol/L (136-145)
[2017-11-08] MEDS ORDERED: PT OWN MED DRAWER 7, Y5N ONE (09:46)
[2017-11-08] MEDS: SOTALOL HCL 80 MG TABLET (FP) PO SCH ×2 (09:50→21:54)
[2017-11-08] MEDS: BUDESONIDE/FORMETEROL FUMARATE 160/4.5 mcg INHALER IH SCH ×2 (09:50→21:54)
[2017-11-08] MEDS: VALSARTAN 80 MG TABLET (UD) PO SCH (09:50)
[2017-11-08] MEDS: FUROSEMIDE 40 MG TABLET (FP) PO SCH (09:50)
[2017-11-08] MEDS: TIOTROPIUM BROMIDE 2.5 MCG (SPIRIVA) RESPIMAT INHALER IH SCH (09:50)
[2017-11-08] MEDS ORDERED: POTASSIUM CHLORIDE ORAL LIQUID 20 MEQ/15 ML PO ONE (10:29)
--- NOTE | 2017-11-08 10:36 | PN ---
Progress Note, Physician Chief Complaint: Events noted Awake and alert Not in distress History of Present Illness: Patient was seen and examined. Awake and alert. Chart was reviewed Denies chest pain, SOB or palpitation Sinus rhythm - Current Medication List Current Medications: Active Medications Albuterol/Ipratropium (Duoneb -) 1 amp NEB Q8H PRN PRN Reason: WHEEZING Last Admin: 11/07/17 18:49 Dose: 1 amp Atorvastatin Calcium (Lipitor -) 40 mg PO HS [facility] Last Admin: 11/07/17 21:26 Dose: 40 mg Budesonide/Formoterol Fumarate (Symbicort 160/4.5mcg -) 2 puff IH BID [facility] Last Admin: 11/08/17 09:50 Dose: 2 puff Diltiazem HCl (Cardizem Injection -) 5 mg IVPUSH Q4H PRN PRN Reason: TACHYCARDIA Diltiazem HCl (Cardizem -) 30 mg PO TID [facility] Last Admin: 11/08/17 06:59 Dose: Not Given Furosemide (Lasix -) 40 mg PO DAILY [facility] Last Admin: 11/08/17 09:50 Dose: 40 mg Montelukast Sodium (Singulair -) 10 mg PO [facility] Last Admin: 11/07/17 21:26 Dose: 10 mg Potassium Chloride (Potassium Chloride Oral Liquid) 40 meq PO ONCE ONE Stop: 11/08/17 10:30 Sotalol HCl (Betapace -) 80 mg PO BID [facility] Last Admin: 11/08/17 09:50 Dose: 80 mg Tiotropium [place] (Spiriva Respimat) 2 puff IH DAILY [facility] Last Admin: 11/08/17 09:50 Dose: 2 puff Valsartan (Diovan -) 80 mg PO DAILY [facility] Last Admin: 11/08/17 09:50 Dose: 80 mg Warfarin Sodium (Coumadin -) 2 mg PO DAILY@1800 [facility] Last Admin: 11/07/17 18:31 Dose: 2 mg Warfarin Sodium (Coumadin -) 15 mg PO ONCE@1800 ONE Stop: 11/08/17 18:01 - Objective Vital Signs: Vital Signs Temperature 98.3 F 11/08/17 05:39 Pulse Rate 75 11/08/17 05:39 Respiratory Rate 20 11/08/17 05:39 Blood Pressure 122/66 09/30/18 05:39 O2 Sat by Pulse Oximetry (%) 95 11/07/17 21:00 Eyes: Yes: PERRL HENT: Yes: Atraumatic Neck: Yes: Supple Cardiovascular: Yes: Regular Rate and Rhythm, S1, S2 Respiratory: Yes: CTA Bilaterally Gastrointestinal: Yes: Normal Bowel Sounds, Soft. No: Tenderness Edema: No Labs: CBC, BMP 11/08/17 06:20 11/08/17 06:20 INR, PTT INR 1.54 (0.83-1.09) H 11/08/17 06:20 Problem List - Problems (1) Acute exacerbation of CHF (congestive heart failure) Code(s): I50.9 - HEART FAILURE, UNSPECIFIED Qualifiers: Heart failure type: combined systolic and diastolic Qualified Code(s): I50.43 - Acute on chronic combined systolic (congestive) and diastolic ( congestive) heart failure (2) Afib Code(s): I48.91 - UNSPECIFIED ATRIAL FIBRILLATION Qualifiers: Atrial fibrillation type: paroxysmal Qualified Code(s): I48.0 - Paroxysmal atrial fibrillation (3) COPD (chronic obstructive pulmonary disease) Code(s): J44.9 - CHRONIC OBSTRUCTIVE PULMONARY DISEASE, UNSPECIFIED (4) Dyspnea on exertion Code(s): R06.09 - OTHER FORMS OF DYSPNEA (5) HLD (hyperlipidemia) Code(s): E78.5 - HYPERLIPIDEMIA, UNSPECIFIED Qualifiers: Hyperlipidemia type: pure hypercholesterolemia Qualified Code(s): E78.00 - Pure hypercholesterolemia, unspecified; E78.0 - Pure hypercholesterolemia (6) Hypertensive cardiovascular disease Code(s): I11.9 - HYPERTENSIVE HEART DISEASE WITHOUT HEART FAILURE Qualifiers: Heart failure presence: with heart failure Heart failure type: combined systolic and diastolic Heart failure chronicity: acute on chronic Qualified Code(s): I11.0 - Hypertensive heart disease with heart failure; I50.43 - Acute on chronic combined systolic (congestive) and diastolic (congestive) heart failure Assessment/Plan 1. Improving acute on chronic diastolic heart failure 2. Paroxysmal atrial fibrillation s/p synchronized cardioversion to sinus 3. Hypertensive cardiovascular disease 4. Reactive airway disease/bronchial asthma/COPD PLAN: 1. Oral diuresis with monitor renal function and electrolytes 2. Continue Sotalol 80 bid for now and monitor QT and Cardizem as needed for rate-control, post DCCV. Continue Diovan 80 qd and Lipitor 40 qh 3. Continue Coumadin 4. Bronchodilator, O2 as needed and outpatient PFTs Further plans are to follow You Austin MD
[2017-11-08 10:58] LABS: ACANTHOCYTES 0; ANISOCYTOSIS 0; HELMET CELLS 0; HOWELL-JOLLY BODIES 0; MACROCYTOSIS 0; OVALOCYTE 0; PLATELET ESTIMATE NORMAL; ROULEAU 0; SICKELED CELLS 0; TARGET CELLS 0; TEAR DROP CELLS 0; TOXIC GRANULATION 0
--- NOTE | 2017-11-08 13:32 | PN ---
Progress Note (short form) - Note Progress Note: PULMONARY Feels well, remains in sinus rhythm. States breathing is improving. +chronic wheeze. Vital Signs Period Temp Pulse Resp BP Sys/[place] Pulse Ox Last 24 Hr 98.1 F-98.7 F 61-75 20-20 104-126/54-67 95-95 Gen: NAD at rest Heart: RRR Lung: scattered wheeze Abd: soft, nontender Ext: no edema CBC, BMP 11/08/17 06:20 11/08/17 06:20 Active Medications Albuterol/Ipratropium (Duoneb -) 1 amp NEB Q8H PRN PRN Reason: WHEEZING Last Admin: 11/07/17 18:49 Dose: 1 amp Atorvastatin Calcium (Lipitor -) 40 mg PO [facility] Last Admin: 11/07/17 21:26 Dose: 40 mg Budesonide/Formoterol Fumarate (Symbicort 160/4.5mcg -) 2 puff IH BID [facility] Last Admin: 11/08/17 09:50 Dose: 2 puff Diltiazem HCl (Cardizem Injection -) 5 mg IVPUSH Q4H PRN PRN Reason: TACHYCARDIA Diltiazem HCl (Cardizem -) 30 mg PO TID [facility] Last Admin: 11/08/17 06:59 Dose: Not Given Furosemide (Lasix -) 40 mg PO DAILY [facility] Last Admin: 11/08/17 09:50 Dose: 40 mg Montelukast Sodium (Singulair -) 10 mg PO [facility] Last Admin: 11/07/17 21:26 Dose: 10 mg Sotalol HCl (Betapace -) 80 mg PO BID [facility] Last Admin: 11/08/17 09:50 Dose: 80 mg Tiotropium [place] (Spiriva Respimat) 2 puff IH DAILY [facility] Last Admin: 11/08/17 09:50 Dose: 2 puff Valsartan (Diovan -) 80 mg PO DAILY [facility] Last Admin: 11/08/17 09:50 Dose: 80 mg Warfarin Sodium (Coumadin -) 15 mg PO ONCE@1800 ONE Stop: 11/08/17 18:01 A/P Acute on Chronic Diastolic/Systolic Heart Failure Atrial Fibrillation now in sinus rhythm Asthma r/o COPD - rate/rhythm control - continue anticoagulation, target INR 2-3 - inhaled bronchodilators - symbicort, spiriva - singulair - can defer systemic steroids at this time - will need outpt PFTs and follow up
--- NOTE | 2017-11-08 15:21 | PN ---
Progress Note, Physician Chief Complaint: No new complaints - Current Medication List Current Medications: Active Medications Albuterol/Ipratropium (Duoneb -) 1 amp NEB Q8H PRN PRN Reason: WHEEZING Last Admin: 11/07/17 18:49 Dose: 1 amp Atorvastatin Calcium (Lipitor -) 40 mg PO HS [facility] Last Admin: 11/07/17 21:26 Dose: 40 mg Budesonide/Formoterol Fumarate (Symbicort 160/4.5mcg -) 2 puff IH BID [facility] Last Admin: 11/08/17 09:50 Dose: 2 puff Diltiazem HCl (Cardizem Injection -) 5 mg IVPUSH Q4H PRN PRN Reason: TACHYCARDIA Diltiazem HCl (Cardizem -) 30 mg PO TID [facility] Last Admin: 11/08/17 14:00 Dose: 30 mg Furosemide (Lasix -) 40 mg PO DAILY [facility] Last Admin: 11/08/17 09:50 Dose: 40 mg Montelukast Sodium (Singulair -) 10 mg PO [facility] Last Admin: 11/07/17 21:26 Dose: 10 mg Sotalol HCl (Betapace -) 80 mg PO BID [facility] Last Admin: 11/08/17 09:50 Dose: 80 mg Tiotropium [place] (Spiriva Respimat) 2 puff IH DAILY [facility] Last Admin: 11/08/17 09:50 Dose: 2 puff Valsartan (Diovan -) 80 mg PO DAILY [facility] Last Admin: 11/08/17 09:50 Dose: 80 mg Warfarin Sodium (Coumadin -) 15 mg PO ONCE@1800 ONE Stop: 11/08/17 18:01 - Objective Vital Signs: Vital Signs Temperature 98.1 F 11/08/17 13:59 Pulse Rate 61 11/08/17 13:59 Respiratory Rate 18 11/08/17 13:59 Blood Pressure 118/52 L 11/08/17 13:59 O2 Sat by Pulse Oximetry (%) 95 11/08/17 09:00 Constitutional: Not in distress Well Nourished, No Distress, Calm HEENT: mm moist, o aemia CHEST: CTA B/L Minimal wheezes Cardiovascular: Regular S1S2 n Pulse Irregular Gastrointestinal: WNL, Normal Bowel Sounds, Soft. No: Distention, Tenderness Edema: LLE: 2+, RLE: 2+ Pulses + Neurological: AOc3 non focal Psychiatric:: WNL, Alert, Oriented Labs: CBC, BMP 11/08/17 06:20 11/08/17 06:20 INR, PTT INR 1.54 (0.83-1.09) H 11/08/17 06:20 Problem List - Problems (1) Atrial fibrillation with RVR Assessment/Plan: Converted to NSR s/p Cardioversion cont AC F/U INR today INR sub therapeutic Code(s): I48.91 - UNSPECIFIED ATRIAL FIBRILLATION (2) Acute exacerbation of CHF (congestive heart failure) Assessment/Plan: Improving with rate control at present asymptomatic Code(s): I50.9 - HEART FAILURE, UNSPECIFIED Qualifiers: Heart failure type: combined systolic and diastolic Qualified Code(s): I50.43 - Acute on chronic combined systolic (congestive) and diastolic ( congestive) heart failure (3) COPD (chronic obstructive pulmonary disease) Assessment/Plan: Cont Hoe meds and PRN DuoNeb Code(s): J44.9 - CHRONIC OBSTRUCTIVE PULMONARY DISEASE, UNSPECIFIED (4) Hypertensive cardiovascular disease Assessment/Plan: Well controlled BP Cont all home meds Code(s): I11.9 - HYPERTENSIVE HEART DISEASE WITHOUT HEART FAILURE Qualifiers: Heart failure presence: with heart failure Heart failure type: combined systolic and diastolic Heart failure chronicity: acute on chronic Qualified Code(s): I11.0 - Hypertensive heart disease with heart failure; I50.43 - Acute on chronic combined systolic (congestive) and diastolic (congestive) heart failure
[2017-11-08] MEDS ORDERED: WARFARIN NA 10 MG TABLET (FP) PO ONE (18:00)
[2017-11-08] MEDS: ALBUTEROL SO4 2.5/IPRATROPIUM 0.5 INH SOL 3 ML VIAL.NEB. NEB PRN (19:59)
[2017-11-08] MEDS: MONTELUKAST NA 10 MG TABLET PO SCH (21:54)
[2017-11-08] MEDS: ATORVASTATIN CA 40 MG TABLET (FP) PO SCH (21:54)
[2017-11-09 06:19] LABS: BASO % 0.5 % (0-2.0); EOS % 3.2 % (0-4.5); HEMATOCRIT 36.4 % (35.4-49); HEMOGLOBIN 11.5 GM/dL (11.7-16.9); LYMPH % 13.5 % (8-40); MCH 29.2 pg (25.7-33.7); MCHC 31.6 g/dl (32.0-35.9); MEAN CELL VOLUME 92.4 fl (80-96); MEAN PLT VOLUME 8.6 fl (7.5-11.1); MONO % 13.5 % (3.8-10.2); NEUT % 69.3 % (42.8-82.8); PLATELET COUNT 270 K/MM3 (134-434); RBC 3.93 M/mm3 (4.00-5.60); WHITE BLOOD COUNT 9.4 K/mm3 (4.0-10.0)
[2017-11-09] MEDS: dilTIAZem HCL 30 MG TABLET (FP) PO SCH (06:34)
[2017-11-09 06:35] LABS: INR 1.37 (0.83-1.09); PROTHROMBIN TIME (PATIENT) 16.2 SEC (9.7-13.0)
[2017-11-09 06:44] LABS: ANION GAP 9 MMOL/L (8-16); BLOOD UREA NITROGEN 12 mg/dL (7-18); CALCIUM 8.4 mg/dL (8.5-10.1); CHLORIDE 104 mmol/L (98-107); CO2 30 mmol/L (21-32); GLUCOSE,RANDOM 109 mg/dL (74-106); SODIUM 143 mmol/L (136-145)
--- NOTE | 2017-11-09 07:42 | EKG ---
Test Reason : Blood Pressure : / mmHG Vent. Rate : 088 BPM Atrial Rate : 241 BPM P-R Int : 000 ms QRS Dur : 088 ms QT Int : 392 ms P-R-T Axes : 000 063 -34 degrees QTc Int : 474 ms ATRIAL FIBRILLATION MINIMAL VOLTAGE CRITERIA FOR LVH, MAY BE NORMAL VARIANT NONSPECIFIC T WAVE ABNORMALITY ABNORMAL ECG WHEN COMPARED WITH ECG OF 04-NOV-2017 20:34, VENT. RATE HAS DECREASED BY [address] ELEVATION NOW PRESENT IN LATERAL LEADS NONSPECIFIC T WAVE ABNORMALITY HAS REPLACED INVERTED T WAVES IN LATERAL LEADS Confirmed by RICHIE ARZOLA, SOLA ([id number]) on 11/06/2017 11:15:49 AM Referred By: PEREZ OBREGON Confirmed By:SOLA QURIOZ MD
[2017-11-09 10:14] VITALS: BP 118/58; PULSE 73; TEMP 98.8
[2017-11-09] MEDS: TIOTROPIUM BROMIDE 2.5 MCG (SPIRIVA) RESPIMAT INHALER IH SCH (10:16)
[2017-11-09] MEDS: BUDESONIDE/FORMETEROL FUMARATE 160/4.5 mcg INHALER IH SCH (10:16)
[2017-11-09] MEDS: VALSARTAN 80 MG TABLET (UD) PO SCH (10:16)
[2017-11-09] MEDS: FUROSEMIDE 40 MG TABLET (FP) PO SCH (10:16)
[2017-11-09] MEDS: SOTALOL HCL 80 MG TABLET (FP) PO SCH (10:16)
--- NOTE | 2017-11-09 10:28 | PN ---
Progress Note, Physician History of Present Illness: pulmonary alert,no distress,-cp,-sob - Current Medication List Current Medications: Active Medications Albuterol/Ipratropium (Duoneb -) 1 amp NEB Q8H PRN PRN Reason: WHEEZING Last Admin: 11/08/17 19:59 Dose: 1 amp Atorvastatin Calcium (Lipitor -) 40 mg PO [facility] Last Admin: 11/08/17 21:54 Dose: 40 mg Budesonide/Formoterol Fumarate (Symbicort 160/4.5mcg -) 2 puff IH BID [facility] Last Admin: 11/09/17 10:16 Dose: 2 puff Diltiazem HCl (Cardizem Injection -) 5 mg IVPUSH Q4H PRN PRN Reason: TACHYCARDIA Diltiazem HCl (Cardizem -) 30 mg PO TID [facility] Last Admin: 11/09/17 06:34 Dose: Not Given Furosemide (Lasix -) 40 mg PO DAILY [facility] Last Admin: 11/09/17 10:16 Dose: 40 mg Montelukast Sodium (Singulair -) 10 mg PO [facility] Last Admin: 11/08/17 21:54 Dose: 10 mg Sotalol HCl (Betapace -) 80 mg PO BID [facility] Last Admin: 11/09/17 10:16 Dose: 80 mg Tiotropium [employer] (Spiriva Respimat) 2 puff IH DAILY [facility] Last Admin: 11/09/17 10:16 Dose: 2 puff Valsartan (Diovan -) 80 mg PO DAILY [facility] Last Admin: 11/09/17 10:16 Dose: 80 mg - Objective Vital Signs: Vital Signs Temperature 98.8 F 11/09/17 10:00 Pulse Rate 73 11/09/17 10:00 Respiratory Rate 20 11/09/17 10:00 Blood Pressure 118/58 L 11/09/17 10:00 O2 Sat by Pulse Oximetry (%) 99 11/08/17 21:00 Constitutional: Yes: Well Nourished, Calm Eyes: Yes: WNL HENT: Yes: WNL Neck: Yes: WNL Cardiovascular: Yes: Regular Rate and Rhythm, S1, S2 Respiratory: Yes: CTA Bilaterally Gastrointestinal: Yes: Normal Bowel Sounds, Soft Extremities: Yes: WNL Edema: No Labs: CBC, BMP 11/09/17 05:30 11/09/17 05:30 INR, PTT INR 1.37 (0.83-1.09) H 11/09/17 05:30 Problem List - Problems (1) Acute exacerbation of CHF (congestive heart failure) Code(s): I50.9 - HEART FAILURE, UNSPECIFIED Qualifiers: Heart failure type: combined systolic and diastolic Qualified Code(s): I50.43 - Acute on chronic combined systolic (congestive) and diastolic ( congestive) heart failure (2) Afib Code(s): I48.91 - UNSPECIFIED ATRIAL FIBRILLATION Qualifiers: Atrial fibrillation type: paroxysmal Qualified Code(s): I48.0 - Paroxysmal atrial fibrillation (3) Asthma Code(s): J45.909 - UNSPECIFIED ASTHMA, UNCOMPLICATED Qualifiers: Asthma severity: moderate Asthma persistence: persistent (4) Dyspnea on exertion Code(s): R06.09 - OTHER FORMS OF DYSPNEA (5) Elevated INR Code(s): R79.1 - ABNORMAL COAGULATION PROFILE Assessment/Plan Assessment/Plan Acute on Chronic Diastolic/Systolic Heart Failure Atrial Fibrillation s/p cardioversion Asthma r/o COPD - rate control - continue anticoagulation, target INR 2-3 - inhaled bronchodilators - symbicort, spiriva - singulair - outpt PFTs and follow up DR HERRING
--- NOTE | 2017-11-09 10:32 | PN ---
Progress Note, Physician History of Present Illness: Remains in SR on sotalol post DCCV. Denies chest tightness, dyspnea, cough, wheeze worse than baseline. - Current Medication List Current Medications: Active Medications Albuterol/Ipratropium (Duoneb -) 1 amp NEB Q8H PRN PRN Reason: WHEEZING Last Admin: 11/08/17 19:59 Dose: 1 amp Atorvastatin Calcium (Lipitor -) 40 mg PO [facility] Last Admin: 11/08/17 21:54 Dose: 40 mg Budesonide/Formoterol Fumarate (Symbicort 160/4.5mcg -) 2 puff IH BID [facility] Last Admin: 11/09/17 10:16 Dose: 2 puff Diltiazem HCl (Cardizem Injection -) 5 mg IVPUSH Q4H PRN PRN Reason: TACHYCARDIA Diltiazem HCl (Cardizem -) 30 mg PO TID [facility] Last Admin: 11/09/17 06:34 Dose: Not Given Furosemide (Lasix -) 40 mg PO DAILY [facility] Last Admin: 11/09/17 10:16 Dose: 40 mg Montelukast Sodium (Singulair -) 10 mg PO HS [facility] Last Admin: 11/08/17 21:54 Dose: 10 mg Sotalol HCl (Betapace -) 80 mg PO BID [facility] Last Admin: 11/09/17 10:16 Dose: 80 mg Tiotropium [place] (Spiriva Respimat) 2 puff IH DAILY [facility] Last Admin: 11/09/17 10:16 Dose: 2 puff Valsartan (Diovan -) 80 mg PO DAILY [facility] Last Admin: 11/09/17 10:16 Dose: 80 mg - Objective Vital Signs: Vital Signs Temperature 98.8 F 11/09/17 10:00 Pulse Rate 73 11/09/17 10:00 Respiratory Rate 20 11/09/17 10:00 Blood Pressure 118/58 L 11/09/17 10:00 O2 Sat by Pulse Oximetry (%) 99 11/08/17 21:00 Constitutional: Yes: No Distress, Calm Neck: Yes: Supple Cardiovascular: Yes: Regular Rate and Rhythm Respiratory: Yes: Regular, Diminished Gastrointestinal: Yes: Normal Bowel Sounds, Soft Edema: No Labs: CBC, BMP 11/09/17 05:30 11/09/17 05:30 INR, PTT INR 1.37 (0.83-1.09) H 11/09/17 05:30 - ....Imaging EKG: Report Reviewed (Tele: ELIZABETHR brandon FORBES) Problem List - Problems (1) Acute exacerbation of CHF (congestive heart failure) Code(s): I50.9 - HEART FAILURE, UNSPECIFIED Qualifiers: Heart failure type: combined systolic and diastolic Qualified Code(s): I50.43 - Acute on chronic combined systolic (congestive) and diastolic ( congestive) heart failure (2) Afib Code(s): I48.91 - UNSPECIFIED ATRIAL FIBRILLATION Qualifiers: Atrial fibrillation type: paroxysmal Qualified Code(s): I48.0 - Paroxysmal atrial fibrillation (3) Asthma Code(s): J45.909 - UNSPECIFIED ASTHMA, UNCOMPLICATED Qualifiers: Asthma severity: moderate Asthma persistence: persistent (4) Hypertensive cardiovascular disease Code(s): I11.9 - HYPERTENSIVE HEART DISEASE WITHOUT HEART FAILURE Qualifiers: Heart failure presence: with heart failure Heart failure type: combined systolic and diastolic Heart failure chronicity: acute on chronic Qualified Code(s): I11.0 - Hypertensive heart disease with heart failure; I50.43 - Acute on chronic combined systolic (congestive) and diastolic (congestive) heart failure (5) Encounter for cardioversion procedure Code(s): Z01.89 - ENCOUNTER FOR OTHER SPECIFIED SPECIAL EXAMINATIONS Assessment/Plan August 14, 2017 cLVH with abnormal septal motion, normal LVEF 65-70%, MAC, mild LAE 4.7 cm, CHAVA, mild MR, mild-mod TR RVSP 32 mmHg April 20, 2014 Nuc stress: No ischemia LVEF 63% A: 1. Resolved acute on chronic diastolic heart failure in context of 2. Paroxysmal atrial fibrillation in sinus rhythm post DCCV with subtherapeutic INR 3. Hypertensive cardiovascular disease 4. Reactive airway disease/bronchial asthma r/o COPD P:1. Continue oral diuresis with monitor diuretic response, renal function and electrolytes 2. Continue Sotalol 80 bid, Diovan 80 qd and Lipitor 40 qhs 3. As INR<2 will start Eliquis 5 bid, patient agrees to NOAC 4. BD, singulair, O2 as needed, outpatient PFTs, d/c planning with f/u with Dr. Escobar
[2017-11-09] MEDS ORDERED: APIXABAN 5 MG TABLET PO SCH (10:45)
--- NOTE | 2017-11-09 11:16 | DS ---
Physical Examination Vital Signs: Vital Signs Temperature 98.8 F 11/09/17 10:00 Pulse Rate 73 11/09/17 10:00 Respiratory Rate 20 11/09/17 10:00 Blood Pressure 118/58 L 11/09/17 10:00 O2 Sat by Pulse Oximetry (%) 99 11/08/17 21:00 Constitutional: Yes: Well Nourished, No Distress, Calm Cardiovascular: Yes: WNL, Regular Rate and Rhythm. No: Rub Respiratory: Yes: WNL, Regular, CTA Bilaterally, Diminished. No: Accessory Muscle Use, Rhonchi, SOB, Tachypnea, Wheezes Gastrointestinal: Yes: WNL, Normal Bowel Sounds, Soft. No: Distention, Tenderness Renal/: Yes: WNL Musculoskeletal: Yes: WNL Edema: Yes Edema: LLE: Trace, RLE: Trace Neurological: Yes: WNL, Alert, Oriented Psychiatric: Yes: WNL, Alert, Oriented Labs: CBC, BMP 11/09/17 05:30 11/09/17 05:30 Discharge Summary Reason For Visit: NEW ONSET OF CONGESTIVE HEART FAILURE Current Active Problems ELIE (acute kidney injury) (Acute) Acute exacerbation of CHF (congestive heart failure) (Acute) Afib (Acute) Asthma (Acute) Atrial fibrillation with RVR (Acute) COPD (chronic obstructive pulmonary disease) (Acute) Dyspnea on exertion (Acute) Elevated INR (Acute) Encounter for cardioversion procedure (Acute) HLD (hyperlipidemia) (Acute) Hemoglobin A1c less than 7.0% (Acute) Hypertensive cardiovascular disease (Acute) Hypokalemia (Acute) Hypomagnesemia (Acute) Leukocytosis (Acute) New onset of congestive heart failure (Acute) Supratherapeutic INR (Acute) Transaminitis (Acute) Hospital Course: is a 72 year old male who was admitted for acute chf exacerbation 2/2 afib w/ rvr. pt found to have elie, transamitis 2/2 chf, which resolved. Pt underwent cardioversion, converted to SR, started on sotalol by cardiology. Sotalol discontinued 2/2 torsades de pointes, plan to continue bystolic bid. Coumadin discontinued, pt started on NOAC eliquis. Acute chf exacerbation improved w/ iv diuresis, transitioned to po lasix. Pt also noted to have wheezing 2/2 persistent asthma, evaluated by pulmonary here, continue symbicort and spiriva, outpt pfts. Otherwise, pt doing well. Vitals stable, labs unremarkable. Pt is cleared by cardiology for discharge. F/u recommended. 32 minutes spent in discharge planning Condition: Fair - Instructions Diet, Activity, Other Instructions: low na diet activity as tolerated meds as directed f/u Referrals: Tressa Escobar MD [Staff Physician] - 2 Weeks Johnny Riddle MD [Primary Care Provider] - 1 Week Tigre Shore MD, MD [Staff Physician] - 2 Weeks Disposition: HOME - Home Medications Comprehensive Discharge Medication List: Ambulatory Orders Budesonide/Formeterol Fumarate [SYMBICORT 160/4.5mcg -] 1 inh PO DAILY 11/04/17 Tiotropium [place] [Spiriva Respimat] 4 gm IH DAILY 11/04/17 Apixaban [Eliquis -] 5 mg PO BID #60 tablet 11/09/17 Atorvastatin Ca [Lipitor] 40 mg PO HS tablet 11/09/17 Furosemide [Lasix -] 40 mg PO DAILY #30 tablet 11/09/17 Montelukast Na [Singulair -] 10 mg PO HS #14 tablet 11/09/17 Valsartan [Diovan] 80 mg PO DAILY #30 tablet 11/09/17 Bystolic 5mg BID
[2017-11-09] MEDS ORDERED: NEBIVOLOL 5 MG TABLET (FP) PO SCH (22:00)
== END 2017-11-09 14:24 | disposition home or self-care (01) | DRG 292 ==
LOC: JER 20:25 → JERBED 22:55 → J4W 11-05 01:48
PROVIDERS: ADMIT Internal Medicine; ATTEND Internal Medicine
PROC: 5A2204Z Restoration of Cardiac Rhythm, Single (ICD-10-PCS; principal; 2017-11-06 13:45)
DX: I11.0 Hypertensive heart disease with heart failure (principal); N17.9 Acute kidney failure, unspecified; I48.92 Unspecified atrial flutter; I48.0 Paroxysmal atrial fibrillation; I50.43 Acute on chronic combined systolic (congestive) and diastolic (congestive) heart failure; R79.1 Abnormal coagulation profile; J45.40 Moderate persistent asthma, uncomplicated; J44.9 Chronic obstructive pulmonary disease, unspecified; E78.5 Hyperlipidemia, unspecified; E87.6 Hypokalemia; E83.42 Hypomagnesemia; D72.829 Elevated white blood cell count, unspecified; R74.0 Nonspecific elevation of levels of transaminase and lactic acid dehydrogenase [LDH]; D64.9 Anemia, unspecified
CPT/HCPCS: 36415; 71045-TC-FY; 80048; 80053; 80061; 80076; 81003; 82550; 82553; 82962; 83036; 83721; 83735; 83880; 84100; 84443; 84484; 85025; 85027; 85610; 85730; 87086; 90670; 90688; 93005; 93010; 93306-TC; 93971-TC; 94640; 97116-GP; 97161-GP; 99284-25; G0008; G0009; J1644

== ENCOUNTER 2017-12-15 20:57 | Inpatient (IN) | payer OTHER ==
--- NOTE | 2017-12-15 21:04 | PDOC ---
Rapid Medical Evaluation Chief Complaint: Irregular Heart Beat Time Seen by Provider: 12/15/17 21:00 Medical Evaluation: Allergies Allergy/AdvReac Type Severity Reaction Status Date / Time grass pollen-sweet vernal, Allergy Mild Verified 11/04/17 20:39 standardized [grass poll-sweet vernal, std.] 12/15/17 21:02 I have performed a brief in person evaluation of this patient. This patient presents with a CC of: "I was sent here by my PCP because my heart is out of rhythm." Pt has a hx of a fib and is on anticoagulants. Pt admits to SOB "because of the asthma." PE: Skin: Clear Lungs: Mild expiratory wheezing Heart: tachycardic. MS: Moves all extremities without difficulty. Neuro: Alert and Psych: Appropriate affect I have ordered the following: basic labs/EKG The patient will proceed to the ED for further evaluation. Discharge Disposition - Diagnosis Atrial fibrillation Qualifiers: Atrial fibrillation type: unspecified Qualified Code(s): I48.91 - Unspecified atrial fibrillation - Referrals Referrals: Johnny Riddle MD [Primary Care Provider] - - Patient Instructions - Post Discharge Activity
--- NOTE | 2017-12-15 22:08 | PDOC ---
History of Present Illness - General Chief Complaint: Irregular Heart Beat Stated Complaint: ATRIAL FIBRILLATION Time Seen by Provider: 12/15/17 21:00 - History of Present Illness Initial Comments: 12/15/17 22:55 The patient is a 72 year old male, with a significant past medical history of Afib (s/p successful cardioversion during last admission, on eliquis), asthma, chronic shortness of breath/wheezing, who presents to the emergency department with, irregular heartbeat. As per patient, he saw his nitric acid concentrator operator Dr. Escobar earlier today who informed him to report to the ED for his irregular heartbeat. Patient notes increased weakness and worsening shortness of breath. He normally could walk multiple blocks without difficulty and now feels increasingly short of breath with a few feet. The patient also endorses feeling increasingly tired and falls asleep after activities. As per patients his lower extremity edema has been increasingly worse over the past few days. He notes being on day 2 Prednisone (day 1-30mg and day 2-20mg), with mild relief. He denies any chest pain or weakness. He denies any recent fevers, chills, headache or dizziness. He denies any recent nausea, vomit, diarrhea or constipation. He denies any recent dysuria, frequency, urgency or hematuria. Allergies: Grass pollen-sweet vernal, pets Primary Care Physician: Dr. Riddle Director Of Development And Marketing: Dr. Escobar Past History - Past Medical History Allergies/Adverse Reactions: Allergies Allergy/AdvReac Type Severity Reaction Status Date / Time grass pollen-sweet vernal, Allergy Mild Verified 12/15/17 21:05 standardized [grass poll-sweet vernal, std.] Home Medications: Ambulatory Orders Budesonide/Formeterol Fumarate [SYMBICORT 160/4.5mcg -] 1 inh PO DAILY 11/04/17 Tiotropium [place] [Spiriva Respimat] 4 gm IH DAILY 11/04/17 Apixaban [Eliquis -] 5 mg PO BID #60 tablet 11/09/17 Atorvastatin Ca [Lipitor] 40 mg PO HS #30 tablet 11/09/17 Furosemide [Lasix -] 40 mg PO DAILY #30 tablet 11/09/17 Montelukast Na [Singulair -] 10 mg PO HS #14 tablet 11/09/17 Nebivolol HCl [Bystolic] 5 mg PO BID #60 tablet 11/09/17 Valsartan [Diovan] 80 mg PO DAILY #30 tablet 11/09/17 Asthma: Yes Cardiac Disorders: Yes (A-fib (on coumadin)) COPD: No HTN: Yes Hypercholesterolemia: Yes - Surgical History Abdominal Surgery: Yes (HERNIA) - Immunization History Td Vaccination: No TDAP Vaccination: No Immunization Up to Date: No (UNKNOWN) - Suicide/Smoking/Psychosocial Hx Smoking Status: No Smoking History: Never smoked Years of Tobacco Use: 0 Have you smoked in the past 12 months: No Number of Cigarettes Smoked Daily: 0 Hx Alcohol Use: Yes Drug/Substance Use Hx: No Substance Use Type: None Hx Substance Use Treatment: No *Physical Exam - Vital Signs Last Vital Signs Temp Pulse Resp BP Pulse Ox 98.6 F 130 H 18 142/84 94 L 12/15/17 20:59 12/15/17 20:59 12/15/17 20:59 12/15/17 20:59 12/15/17 20:59 - Physical Exam Comments: 12/15/17 22:59 GENERAL: Awake, alert, and fully oriented, in no acute distress HEAD: No signs of trauma EYES: Sclera anicteric, conjunctiva clear ENT: Nares patent, oropharynx clear without exudates. Moist mucosa NECK: Normal ROM, supple, no lymphadenopathy, JVD, or masses LUNGS: Breath sounds diminished at bases bilaterally with expiratory wheezing. No crackles HEART: Irregularly, irregular. Tachycardic. No murmurs, rubs or gallops ABDOMEN: Soft, nontender, normoactive bowel sounds. No guarding, no rebound. No masses EXTREMITIES: Normal range of motion, trace symmetric LE edema to the mid calves. No clubbing or cyanosis. No cords, erythema, or tenderness BACK: No midline spinal tenderness in cervical/thoracic/lumbar region NEUROLOGICAL: Normal speech, cranial nerves intact, 5/5 strength in all 4 extremities, normal sensation to light touch in all 4 extremities SKIN: Warm, Dry, normal turgor, no rashes or lesions noted. Heart Score/ECG Review #1 12/15/17 23:08 Twelve-lead EKG was performed and reviewed by me. Atrial flutter with 2-1 block , rate 1:30. Normal axis. No ST elevations. Compared to EKG from 11/06/2017, 2- 1 block is new. ED Treatment Course - LABORATORY CBC & Chemistry Diagram: 12/15/17 22:47 12/15/17 22:47 Medical Decision Making - Medical Decision Making 12/15/17 22:19 72yo M hx AFib, asthma, CHF (EF 45-50%) presents to ED from cardiologists office for admission given progressive ELIAS. Vitals with HR 130s, EKG pending. Exam with diffuse mild wheezing (pt states at baseline) and mildly diminished BS at base. LE also with trace edema. DDx includes asthma exacerbation vs CHF vs ACS. No PE risk factors to suggest PE and given wheezing and LE edema, ELIAS more likely due to asthma +/- CHF. WIll hold off on albuterol given tachycardia and give atrovent and steroids. Plan -labs -xr -steroids/atrovent -admit 12/16/17 01:22 Labs remarkable for BNP 5000s, up from 3000s Ordered for IV lasix 40mg (home dose lasix 40mg qday) Cardiac Technologist up to 1.8, from BL of around 1, possibely overdiuresed? Pt feeling better after atrovent and methylpred Likely asthma and CHF exacerbation Case discussed with Dr. White, pt accepted for admission Case discussed in detail with admitting physician including history, physical exam and ancillary studies. Admitting physician has assumed care for the patient, will follow all pending diagnostics and will complete the evaluation and treatment. *DC/Admit/Observation/Transfer Diagnosis at time of Disposition: Acute exacerbation of CHF (congestive heart failure), Asthma Atrial fibrillation Qualifiers: Atrial fibrillation type: unspecified Qualified Code(s): I48.91 - Unspecified atrial fibrillation - Discharge Dispostion Condition at time of disposition: Stable Decision to Admit order: Yes - Referrals Referrals: Johnny Riddle MD [Primary Care Provider] - - Patient Instructions - Post Discharge Activity - Attestations Physician Attestion: 12/16/17 01:28 I, Dr. Netta Mcdaniels MD, attest that this document has been prepared under my direction and personally reviewed by me in its entirety. I further attest, that it accurately reflects all work, treatment, procedures and medical decision -making performed by me.
[2017-12-15] MEDS ORDERED: IPRATROPIUM BR 0.02% 0.5 MG/2.5 ML VIAL.NEB. NEB ONE ×3 (22:09→22:56)
[2017-12-15] MEDS ORDERED: methylPREDNISolone NA SUCC 125 MG/2 ML VIAL IVPUSH ONE (22:30)
[2017-12-15] MEDS ORDERED: methylPREDNISolone NA SUCC 125 MG/2 ML VIAL ONE (22:57)
[2017-12-15 23:07] LABS: BASO % 0.5 % (0-2.0); EOS % 0.8 % (0-4.5); HEMATOCRIT 38.8 % (35.4-49); HEMOGLOBIN 12.7 GM/dL (11.7-16.9); LYMPH % 13.8 % (8-40); MCH 30.6 pg (25.7-33.7); MCHC 32.8 g/dl (32.0-35.9); MEAN CELL VOLUME 93.2 fl (80-96); MEAN PLT VOLUME 9.5 fl (7.5-11.1); MONO % 10.7 % (3.8-10.2); NEUT % 74.2 % (42.8-82.8); PLATELET COUNT 212 K/MM3 (134-434); RBC 4.17 M/mm3 (4.00-5.60); RDW 13.4 % (11.9-15.9); WHITE BLOOD COUNT 11.8 K/mm3 (4.0-10.0)
[2017-12-15 23:20] LABS: INR 1.39 (0.83-1.09); PROTHROMBIN TIME (PATIENT) 16.4 SEC (9.7-13.0)
[2017-12-15 23:33] LABS: ALBUMIN 3.2 g/dl (3.4-5.0); ALK PHOS 75 U/L (45-117); ANION GAP 7 MMOL/L (8-16); BILIRUBIN,TOTAL 0.2 mg/dL (0.2-1); BLOOD UREA NITROGEN 25 mg/dL (7-18); CALCIUM 8.8 mg/dL (8.5-10.1); CHLORIDE 103 mmol/L (98-107); CO2 32 mmol/L (21-32); CREATININE 1.8 mg/dL (0.55-1.3); GLUCOSE,RANDOM 202 mg/dL (74-106); MAGNESIUM 1.9 mg/dL (1.8-2.4); N-TERMINAL BNP 5575.4 pg/ml (5-125); POTASSIUM 3.8 mmol/L (3.5-5.1); SGOT/AST 31 U/L (15-37); SGPT/ALT 23 U/L (13-61); SODIUM 142 mmol/L (136-145); TOT PROT 6.5 g/dl (6.4-8.2)
[2017-12-16] MEDS ORDERED: FUROSEMIDE 40 MG/4 ML INJECTABLE VIAL IVPUSH ONE ×2 (00:30→05:06)
[2017-12-16] MEDS ORDERED: FUROSEMIDE 40 MG/4 ML INJECTABLE VIAL ONE ×2 (00:54→05:45)
--- NOTE | 2017-12-16 02:12 | PN ---
Teaching Attending Note Name of Resident: Angelina Sterling ATTENDING PHYSICIAN STATEMENT I saw and evaluated the patient. I reviewed the resident's note and discussed the case with the resident. I agree with the resident's findings and plan as documented. SUBJECTIVE: Patient is a 72 year old man with a PMH of Afib (s/p successful cardioversion during last admission, on eliquis), CHF?, asthma, chronic shortness of breath/ wheezing, who presents to the ER with irregular heartbeat and ELIAS. He saw his hazardous substances scientist Dr. Escobar earlier today who informed him to report to the ER for his irregular heartbeat. Patient notes increased weakness and worsening shortness of breath. He normally could walk multiple blocks without difficulty and now feels increasingly short of breath with a few feet. He also feels increasingly tired and falls asleep after activities. As per patients his lower extremity edema has been increasingly worse over the past few days. He notes being on day 2 Prednisone (day 1-30mg and day 2-20mg), with mild relief. He denies any chest pain, fevers, chills, headache, vomiting, diarrhea or dysuria. OBJECTIVE: Alert Vital Signs Period Temp Pulse Resp BP Sys/[place] Pulse Ox Last 24 Hr 98.6 F 130 18 142/84 94 HEENT: No Jaundice, eye redness or discharge, PERRLA, EOMI. Normocephalic, atraumatic. External ears are normal and hearing is grossly intact. No nasal discharge. Neck: Supple, nontender. No palpable adenopathy or thyromegaly. No JVD Chest: Good effort. Diffuse wheezing. No rales. Clear to percussion. Heart: Tachycardia; regular. No S3, rub or murmur Abdomen: Not distended, soft, nontender and no HSM. No rebound or guarding. Normoactive bowel sounds. Ext: Peripheral pulses intact. No leg edema. Skin: Warm and dry. No petechiae, rash or ecchymosis. Neuro: Alert. Oriented x3. CN 2-12 grossly intact. Sensation grossly intact in all four extremities and DTR are symmetric. Home Medications Medication Instructions Recorded Budesonide/Formeterol Fumarate 1 inh PO DAILY 11/04/17 [SYMBICORT 160/4.5mcg -] Tiotropium [place] [Spiriva 4 gm IH DAILY 11/04/17 Respimat] Apixaban [Eliquis -] 5 mg PO BID #60 tablet 11/09/17 Atorvastatin Ca [Lipitor] 40 mg PO HS #30 tablet 11/09/17 Furosemide [Lasix -] 40 mg PO DAILY #30 tablet 11/09/17 Montelukast Na [Singulair -] 10 mg PO HS #14 tablet 11/09/17 Nebivolol HCl [Bystolic] 5 mg PO BID #60 tablet 11/09/17 Valsartan [Diovan] 80 mg PO DAILY #30 tablet 11/09/17 Abnormal Lab Results 12/15/17 12/15/17 12/15/17 22:47 22:47 22:47 WBC 11.8 H Absolute Neuts (auto) 8.8 H Monocytes % 10.7 H PT with INR 16.40 H INR 1.39 H Anion Gap 7 L BUN 25 H Creatinine 1.8 H Random Glucose 202 H Creatine Kinase 350 H CK-MB (CK-2) 10.9 H B-Natriuretic Peptide 5575.4 H Albumin 3.2 L ASSESSMENT AND PLAN: 1. Acute asthma exacerbation/CHF - Acute asthma (COPD?) exacerbation and atrial flutter with rapid rate likely causing CHF exacerbation. Will treat asthma exacerbation with xopenex, spiriva, symbicort and solumedrol. EKG shows atrial flutter. CXR shows hyperinflation with no infiltrates. Leukocytosis is unexplained, but preceded steroid therapy. Will get urinalysis and treat with azithromycin. Continue bystolic for rate control of atrial flutter, but give stat dose of 5 mg IV lopressor to slow down rate; continue eliquis. Use appropriate dose of IV lasix, monitor urine output, restrict salt intake and get daily weight. Consult cardiology and pulmonary to ascertain the relative contribution of ?CHF and ?asthma to his cardiopulmonary debility. Outpatient PFTs will be helpful in clarifying his pulmonary disease. 2. ELIE - May be partly due to excessive diuresis. Needs nephrologic workup. Will consult nephrology and avoid nephrotoxic agents such as NSAIDS, aminoglycosides, contrast dyes and certain Alternative medicine products. 3. DVT prophylaxis - On Eliquis 4. Advance directives - Full code
[2017-12-16] MEDS ORDERED: NEBIVOLOL 5 MG TABLET (FP) PO ONE (03:38)
[2017-12-16] MEDS ORDERED: LABETALOL HCL 5 MG/1 ML (100MG/20 ML VIAL) IVPUSH ONE (05:05)
[2017-12-16] MEDS ORDERED: LEVALBUTEROL HCL 0.31 MG/3 ML VIAL.NEB IH PRN (05:07)
[2017-12-16] MEDS ORDERED: AZITHROMYCIN 250 MG TABLET PO ONE (05:08)
[2017-12-16] MEDS ORDERED: AZITHROMYCIN 250 MG TABLET ONE (05:45)
--- NOTE | 2017-12-16 06:04 | HP ---
CHIEF COMPLAINT: weakness, SOB, and asthma PCP: Dr. 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 Patient reports the weakness has been worsening for the last week. At the beginning of the week he would have to stop about once when walking a few blocks to the train station but it worsened and he was stopping multiple times to catch his breath. Patient has uncontrlled persistently severe asthma and reports it has been waking him up at night. Patient reports he is compliant with his home medications, but does not follow up with a Supervisor Vendor Quality. He states he has had asthma since he was in grade school. Patient reports he typically has swelling in his legs, he used to be able to sleep with them elevated and the swelling would resolve but more recently they have persisted. He sleeps with only one pillow at night and does not note orthopnea. Patient was recently admitted in October for similar symptoms and was found to have afib. He underwent successful cardioversion and was discharged. He follows with Dr. Ferro for his afib. Patient reported he felt better after the last admission, but not back to his baseline. Patient denies fever, chest pain, dizziness, recent chills, congestion, nausea, vomiting, dysuria, and diarrhea. ER course was notable for: (1) lasix 40 IV (2) solumedrol (3) Ipratropium Recent Travel: denies PAST MEDICAL HISTORY: CHF, aflutter, asthma PAST SURGICAL HISTORY: hernia, achilles tendon. Social History: Smoking: denies Alcohol: 4 beers a day Drugs: denies recent drug use Family History: Allergies grass pollen-sweet vernal, standardized [grass poll-sweet vernal, std.] Allergy (Mild, Verified 12/15/17 21:05) HOME MEDICATIONS: Home Medications Medication Instructions Recorded Budesonide/Formeterol Fumarate 1 inh PO DAILY 11/04/17 [SYMBICORT 160/4.5mcg -] Tiotropium [place] [Spiriva 4 gm IH DAILY 11/04/17 Respimat] Apixaban [Eliquis -] 5 mg PO BID #60 tablet 11/09/17 Atorvastatin Ca [Lipitor] 40 mg PO HS #30 tablet 11/09/17 Furosemide [Lasix -] 40 mg PO DAILY #30 tablet 11/09/17 Montelukast Na [Singulair -] 10 mg PO HS #14 tablet 11/09/17 Nebivolol HCl [Bystolic] 5 mg PO BID #60 tablet 11/09/17 Valsartan [Diovan] 80 mg PO DAILY #30 tablet 11/09/17 REVIEW OF SYSTEMS CONSTITUTIONAL: Absent: fever, chills, diaphoresis, generalized weakness, malaise, loss of appetite, weight change HEENT: Absent: rhinorrhea, nasal congestion, throat pain, throat swelling, difficulty swallowing, mouth swelling, ear pain, eye pain, visual changes CARDIOVASCULAR: Absent: chest pain, syncope, palpitations, irregular heart rate, lightheadedness , peripheral edema RESPIRATORY: shortness of breath, Absent: cough, dyspnea with exertion, orthopnea, wheezing, stridor, hemoptysis GASTROINTESTINAL: Absent: abdominal pain, abdominal distension, nausea, vomiting, diarrhea, constipation, melena, hematochezia GENITOURINARY: Absent: dysuria, frequency, urgency, hesitancy, hematuria, flank pain, genital pain MUSCULOSKELETAL: Absent: myalgia, arthralgia, joint swelling, back pain, neck pain SKIN: Absent: rash, itching, pallor HEMATOLOGIC/IMMUNOLOGIC: Absent: easy bleeding, easy bruising, lymphadenopathy, frequent infections ENDOCRINE: Absent: unexplained weight gain, unexplained weight loss, heat intolerance, cold intolerance NEUROLOGIC: weakness Absent: headache, dizziness, unsteady gait, seizure, mental status changes, bladder or bowel incontinence PSYCHIATRIC: Absent: anxiety, depression, suicidal or homicidal ideation, hallucinations. PHYSICAL EXAMINATION Vital Signs - 24 hr 12/15/17 20:59 Temperature 98.6 F Pulse Rate 130 H Respiratory 18 Rate Blood Pressure 142/84 O2 Sat by Pulse 94 L Oximetry (%) GENERAL: Awake, alert, and fully oriented, in no acute distress. HEAD: Normal with no signs of trauma. EYES: Pupils equal, round and reactive to light, extraocular movements intact, EARS, NOSE, THROAT: Moist mucous membranes. NECK: JVD 2 cm above clavicle LUNGS: No accessory muscle use. diffuse inspiratory and expiratory wheezing, bilateral crackles at bases HEART:tachycardic, normal S1 and S2 without murmur, rub or gallop. ABDOMEN: Soft, nontender, not distended, normoactive bowel sounds, no guarding, no rebound, no masses. R reproducible hernia next to umbilicus MUSCULOSKELETAL: Normal range of motion at all joints. No bony deformities or tenderness. No CVA tenderness. LOWER EXTREMITIES: pitting edema up to mid calf, R side diffusely more swollen then left, sensations intact, not tenderness to palpation NEUROLOGICAL: Cranial nerves II-XII intact. Normal speech. Normal gait. PSYCHIATRIC: Cooperative. Good eye contact. Appropriate mood and affect. SKIN: Warm, dry, normal turgor, no rashes or lesions noted, normal capillary refill. Laboratory Results - last 24 hr CBC, BMP 12/15/17 22:47 12/15/17 22:47 ASSESSMENT/PLAN: Patient is a 72 y/o male with a history of CHF, aflutter, and asthma who presents with weakness and SOB. #CHF exacerbation 2/2 to aflutter and asthma exacerbation - NYHA class 3, patient presents with edema, SOB, and bilateral base crackles - EF in 10/27 showed LV fxn normal, SF mildly reduced, mild global hpokinesis - f/u repeat echo - f/u Dr. Ferro, patients Ski Guide outpatient - patient received 40 mg IV in the ED, another 40 mg ordered ~5 am, monitor clear output - discuss what dose to continue lasix for morning, determine based on output - currently no lasix scheduled for today - monitor I's and O's, daily weights - fluid restriction, salt restriction - CXR; clear chostophrenic angles #aflutter with RVR - patient underwent cardioversion 11/05, DC on bystolic - diltiazem did not control his rate, and sotalol caused torsades de piontes - pm dose of bystolic given late, lopressor 5mg ordered, can increase dose of lopressor if continued to be uncontrolled - f/u Cardio for possible cardioversion vs ablation - currently anticoagulated on Elliquis #asthma exacerbation/possible new COPD with exacerbation - patient poorly controlled asthma, no Pulm follow up - WBC elevated at 11.8, no fever or obvious source of infection, possible cause of a COPD exacerbation which may have precipitated the CHF exacerbation - began patient on 500 mg po Azythromycin today and 250 mg daily - continue patients home medications; Spiriva, Singulair, Symbicort - Patient given iprotropium and solumedrol in ED with some resolution of symptoms - Solumedrol 40 mg q8h began, Levobuterol .31 q8h - f/u ABG, determine if CO2 retaining, f/u flu swab - patient needs PFT's to determine COPD vs asthma - f/u Dr. Veloz #ELIE likely prerenal 2/2 to cardiogenic effect CHF exacerbation - Cr: 1.8, baseline 1.1 - lasix may increase creatine, continue to monitor - f/u UA to monitor for renal dz vs infection #HTN - valsartan held, for ELIE #HLD - continue simvastatin #FEN - fluid restricted ~1L - salt restricted diet Visit type - Emergency Visit Emergency Visit: Yes ED Registration Date: 12/16/17 Care time: The patient presented to the Emergency Department on the above date and was hospitalized for further evaluation of their emergent condition. - New Patient This patient is new to me today: Yes Date on this admission: 12/16/17 - Critical Care Critical Care patient: No
[2017-12-16 07:22] LABS: ARTERIAL BLD GAS O2 SATURATION 97.5 % (90-98.9); ARTERIAL BLOOD GAS BASE EXCESS 7.1 meq/l (-2-2); ARTERIAL BLOOD GAS PO2 95.9 mmHg (70-100)
[2017-12-16 07:33] LABS: ALLENS TEST POSITIVE
[2017-12-16 09:42] LABS: HEMATOCRIT 42.5 % (35.4-49); HEMOGLOBIN 13.3 GM/dL (11.7-16.9); MCHC 31.3 g/dl (32.0-35.9); MEAN CELL VOLUME 92.7 fl (80-96); MEAN PLT VOLUME 9.9 fl (7.5-11.1); PLATELET COUNT 220 K/MM3 (134-434); RBC 4.58 M/mm3 (4.00-5.60); RDW 13.7 % (11.9-15.9); WHITE BLOOD COUNT 7.9 K/mm3 (4.0-10.0)
[2017-12-16 09:52] LABS: URINE APPEARANCE CLEAR; URINE BILIRUBIN NEGATIVE (<2.0 mg/dL); URINE COLOR STRAW; URINE GLUCOSE (UA) NEGATIVE (NEGATIVE); URINE KETONE NEGATIVE (NEGATIVE); URINE LEUK ESTERASE NEGATIVE (NEGATIVE); URINE NITRITE NEGATIVE (NEGATIVE); URINE PROTEIN NEGATIVE (NEGATIVE); URINE UROBILINOGEN NEGATIVE mg/dL (0.2-1.0)
--- NOTE | 2017-12-16 09:54 | EKG ---
Test Reason : Blood Pressure : / mmHG Vent. Rate : 130 BPM Atrial Rate : 260 BPM P-R Int : 000 ms QRS Dur : 074 ms QT Int : 400 ms P-R-T Axes : 079 068 -88 degrees QTc Int : 588 ms ATRIAL FLUTTER WITH 2:1 A-V CONDUCTION LEFT VENTRICULAR HYPERTROPHY WITH REPOLARIZATION ABNORMALITY ABNORMAL ECG WHEN COMPARED WITH ECG OF 07-NOV-2017 09:32, ATRIAL FLUTTER HAS REPLACED SINUS RHYTHM VENT. RATE HAS INCREASED BY 64 BPM NON-SPECIFIC CHANGE IN ST SEGMENT IN INFERIOR LEADS INVERTED T WAVES HAVE REPLACED NONSPECIFIC T WAVE ABNORMALITY IN INFERIOR LEADS INVERTED T WAVES HAVE REPLACED NONSPECIFIC T WAVE ABNORMALITY IN LATERAL LEADS Confirmed by RICHIE ARZOLA, SOLA ([id number]) on 12/16/2017 9:54:11 AM Referred By: Confirmed By:SOLA QUIROZ MD
[2017-12-16] MEDS ORDERED: NEBIVOLOL 5 MG TABLET (FP) PO SCH (10:00)
[2017-12-16] MEDS ORDERED: BUDESONIDE/FORMETEROL FUMARATE 160/4.5 mcg INHALER IH SCH (10:00)
[2017-12-16] MEDS ORDERED: VALSARTAN 80 MG TABLET (UD) PO SCH (10:00)
[2017-12-16] MEDS: APIXABAN 5 MG TABLET PO SCH ×2 (10:09→21:27)
[2017-12-16] MEDS: methylPREDNISolone NA SUCC 40 MG/1 ML VIAL IVPUSH SCH ×2 (10:09→18:03)
[2017-12-16] MEDS: TIOTROPIUM BROMIDE 2.5 MCG (SPIRIVA) RESPIMAT INHALER IH SCH (10:17)
[2017-12-16 11:18] LABS: ALBUMIN 3.6 g/dl (3.4-5.0); ALK PHOS 70 U/L (45-117); ANION GAP 11 MMOL/L (8-16); BILIRUBIN,TOTAL 0.4 mg/dL (0.2-1); BLOOD UREA NITROGEN 23 mg/dL (7-18); CALCIUM 9.1 mg/dL (8.5-10.1); CHLORIDE 99 mmol/L (98-107); CO2 32 mmol/L (21-32); CREATININE 1.5 mg/dL (0.55-1.3); GLUCOSE,RANDOM 229 mg/dL (74-106); POTASSIUM 4.3 mmol/L (3.5-5.1); SGOT/AST 25 U/L (15-37); SGPT/ALT 24 U/L (13-61); SODIUM 142 mmol/L (136-145); TOT PROT 7.2 g/dl (6.4-8.2)
[2017-12-16] MEDS ORDERED: ALBUTEROL SO4 2.5/IPRATROPIUM 0.5 INH SOL 3 ML VIAL.NEB. NEB SCH (12:00)
[2017-12-16] MEDS ORDERED: ALBUTEROL SO4 2.5/IPRATROPIUM 0.5 INH SOL 3 ML VIAL.NEB. NEB ONE (12:04)
--- NOTE | 2017-12-16 12:04 | PN ---
Progress Note, Physician Chief Complaint: Pt sitting in stretcher in no acute distress. reports sob/breathing slightly better since yesterday. Denies any chest pain/palpitation, worsening sob, n/v/d - Current Medication List Current Medications: Active Medications Albuterol/Ipratropium (Duoneb -) 1 amp NEB RQID [facility] Apixaban (Eliquis -) 5 mg PO BID [facility] Last Admin: 12/16/17 10:09 Dose: 5 mg Atorvastatin [place] (Lipitor -) 40 mg PO HS [facility] Azithromycin (Zithromax -) 250 mg PO DAILY [facility] Budesonide/Formoterol Fumarate (Symbicort 160/4.5mcg -) 2 puff IH BID [facility] Last Admin: 12/16/17 10:18 Dose: Not Given Levalbuterol HCl (Xopenex) 0.31 mg IH Q8H PRN PRN Reason: ASTHMA Methylprednisolone Sodium Succinate (Solu-Medrol -) 40 mg IVPUSH Q8H-IV [facility] Last Admin: 12/16/17 10:09 Dose: 40 mg Montelukast Sodium (Singulair -) 10 mg PO HS [facility] Nebivolol (Bystolic -) 5 mg PO BID [facility] Last Admin: 12/16/17 10:09 Dose: 5 mg Tiotropium [place] (Spiriva Respimat) 2 puff IH DAILY [facility] Last Admin: 12/16/17 10:17 Dose: Not Given - Objective Vital Signs: Vital Signs Temperature 98.2 F 12/16/17 08:10 Pulse Rate 131 H 12/16/17 10:18 Respiratory Rate 16 12/16/17 10:18 Blood Pressure 139/91 12/16/17 10:18 O2 Sat by Pulse Oximetry (%) 98 12/16/17 10:18 Constitutional: Yes: Well Nourished, No Distress, Calm Cardiovascular: Yes: Tachycardia, Pulse Irregular Respiratory: Yes: Regular, Cough, On Nasal O2, Rhonchi, SOB, Wheezes. No: Accessory Muscle Use, Tachypnea Gastrointestinal: Yes: WNL, Normal Bowel Sounds, Soft. No: Distention, Tenderness Genitourinary: Yes: WNL Musculoskeletal: Yes: WNL Extremities: Yes: WNL Edema: Yes Edema: LLE: 2+, RLE: 1+ Neurological: Yes: WNL, Alert, Oriented Psychiatric: Yes: WNL, Alert, Oriented Labs: CBC, BMP 12/16/17 09:30 12/16/17 09:30 INR, PTT INR 1.39 (0.83-1.09) H 12/15/17 22:47 Problem List - Problems (1) Asthma exacerbation Assessment/Plan: improving still w/ sob, +cough lung exam w/ rhonchi/wheezes continue iv steroids azithromycin day 1 nebs/ih pulm consult pending Code(s): J45.901 - UNSPECIFIED ASTHMA WITH (ACUTE) EXACERBATION Qualifiers: Asthma severity: moderate Asthma persistence: persistent Qualified Code(s ): J45.41 - Moderate persistent asthma with (acute) exacerbation (2) Atrial flutter with rapid ventricular response Assessment/Plan: uncontrolled continue bystolic /eliquis cardizem iv prn cardiology consult pending possible cardioversion Code(s): I48.92 - UNSPECIFIED ATRIAL FLUTTER (3) CHF (congestive heart failure) Assessment/Plan: suspect 2/2 uncontrolled aflutter +sob, +le edema lasix iv 40mg daily monitor Code(s): I50.9 - HEART FAILURE, UNSPECIFIED Qualifiers: Heart failure type: combined systolic and diastolic Heart failure chronicity: acute on chronic Qualified Code(s): I50.43 - Acute on chronic combined systolic (congestive) and diastolic (congestive) heart failure (4) ELIE (acute kidney injury) Assessment/Plan: improving monitor Code(s): N17.9 - ACUTE KIDNEY FAILURE, UNSPECIFIED (5) HLD (hyperlipidemia) Assessment/Plan: stable continue statin Code(s): E78.5 - HYPERLIPIDEMIA, UNSPECIFIED Qualifiers: Hyperlipidemia type: pure hypercholesterolemia Qualified Code(s): E78.00 - Pure hypercholesterolemia, unspecified; E78.0 - Pure hypercholesterolemia
[2017-12-16] MEDS ORDERED: dilTIAZem HCL 25 MG/5 ML - 5 ML VIAL IVPUSH PRN (14:11)
--- NOTE | 2017-12-16 14:59 | CON.CARD ---
Consult Consult Specialty:: Cardiology Referred by:: Johnny Riddle MD Reason for Consultation:: Afib, diastolic failure - History of Present Illness Chief Complaint: Dyspnea, palpitations History of Present Illness: Chief Complaint: Weakness, ELIAS History of Present Illness: 72 yo male h/o diastolic dysfunction, paroxysmal afib/flutter [id number] 2-3 on Eliquis, sotalol-associated [id number] hypertensive cardiovascular disease, bronchial asthma, recent hospitalization for acute on chronic diastolic heart failure in context of rapid afib/flutter post DCCV admitted for increased weakness, worsening shortness of breath and decreased exercise capacity, normally could walk multiple blocks without difficulty and now feels increasingly short of breath with a few feet. He also feels increasingly tired and falls asleep after activities. As per patients his lower extremity edema has been increasingly worse over the past few days. He denies associated chest pain, near or true syncope, palpitations, orthopnea, PND, reports medication compliance. - History Source History Provided By: Patient Limitations to Obtaining History: No Limitations - Past Medical History Cardio/Vascular: Yes: AFIB, CHF Pulmonary: Yes: Asthma - Past Surgical History Past Surgical History: Yes: Hernia Repair (inguinal hernia repair 15 years ago with re repair 1 year ago) - Alcohol/Substance Use Hx Alcohol Use: Yes Number of Drinks Daily: 6 (3 22oz bottles of beer) History of Substance Use: reports: None - Smoking History Smoking history: Never smoked Have you smoked in the past 12 months: No Aproximately how many cigarettes per day: 0 - Social History Usual Living Arrangement: With Spouse (lives with in apartment with ramp to elevator) ADL: Independent History of Recent Travel: No Home Medications - Allergies Allergies/Adverse Reactions: Allergies Allergy/AdvReac Type Severity Reaction Status Date / Time grass pollen-sweet vernal, Allergy Mild Verified 12/15/17 21:05 standardized [grass poll-sweet vernal, std.] - Home Medications Home Medications: Ambulatory Orders Budesonide/Formeterol Fumarate [SYMBICORT 160/4.5mcg -] 1 inh PO DAILY 11/04/17 Tiotropium [place] [Spiriva Respimat] 4 gm IH DAILY 11/04/17 Apixaban [Eliquis -] 5 mg PO BID #60 tablet 11/09/17 Atorvastatin Ca [Lipitor] 40 mg PO HS #30 tablet 11/09/17 Furosemide [Lasix -] 40 mg PO DAILY #30 tablet 11/09/17 Montelukast Na [Singulair -] 10 mg PO HS #14 tablet 11/09/17 Nebivolol HCl [Bystolic] 5 mg PO BID #60 tablet 11/09/17 Valsartan [Diovan] 80 mg PO DAILY #30 tablet 11/09/17 Family Disease History - Family Disease History Family Disease History: Diabetes: Father, Mother Review of Systems - Review of Systems Cardiovascular: reports: Palpitations Respiratory: reports: Exercise Intolerance, SOB on Exertion Vital Signs: Vital Signs Temperature 97.3 F L 12/16/17 13:31 Pulse Rate 59 L 12/16/17 13:31 Respiratory Rate 18 12/16/17 13:31 Blood Pressure 121/89 12/16/17 13:31 O2 Sat by Pulse Oximetry (%) 100 12/16/17 13:31 Constitutional: Yes: No Distress, Calm, Thin Neck: Yes: Supple Respiratory: Yes: Regular, Diminished Gastrointestinal: Yes: Normal Bowel Sounds, Soft Cardiovascular: Yes: Tachycardia, Pulse Irregular JVD: No Carotid Bruit: No Heart Sounds: Yes: S1, S2 Edema: No - Other Data Labs, Other Data: CBC, BMP 12/16/17 09:30 12/16/17 09:30 INR, PTT INR 1.39 (0.83-1.09) H 12/15/17 22:47 Troponin, BNP 12/15/17 12/16/17 22:47 09:30 Troponin I 0.03 < 0.02 B-Natriuretic Peptide 5575.4 H 5317.0 H Troponin, BNP 12/15/17 12/16/17 22:47 09:30 Troponin I 0.03 < 0.02 B-Natriuretic Peptide 5575.4 H 5317.0 H Sflutter @ 130 LVH with repol abnl Ejection Fraction %: LVEF > or = 40 % Imaging - Results Chest X-ray: Report Reviewed (CHF) Problem List - Problems (1) Anticoagulant long-term use Code(s): Z79.01 - [facility] (CURRENT) USE OF ANTICOAGULANTS (2) Acute exacerbation of CHF (congestive heart failure) Code(s): I50.9 - HEART FAILURE, UNSPECIFIED Qualifiers: Heart failure type: diastolic Qualified Code(s): I50.33 - Acute on chronic diastolic (congestive) heart failure (3) Atrial flutter with rapid ventricular response Code(s): I48.92 - UNSPECIFIED ATRIAL FLUTTER (4) Dyspnea on exertion Code(s): R06.09 - OTHER FORMS OF DYSPNEA (5) HLD (hyperlipidemia) Code(s): E78.5 - HYPERLIPIDEMIA, UNSPECIFIED Qualifiers: Hyperlipidemia type: pure hypercholesterolemia Qualified Code(s): E78.00 - Pure hypercholesterolemia, unspecified; E78.0 - Pure hypercholesterolemia (6) Hypertensive cardiovascular disease Code(s): I11.9 - HYPERTENSIVE HEART DISEASE WITHOUT HEART FAILURE Qualifiers: Heart failure presence: with heart failure Heart failure type: combined systolic and diastolic Heart failure chronicity: acute on chronic Qualified Code(s): I11.0 - Hypertensive heart disease with heart failure; I50.43 - Acute on chronic combined systolic (congestive) and diastolic (congestive) heart failure Assessment/Plan August 14, 2017 cLVH with abnormal septal motion, normal LVEF 65-70%, MAC, mild LAE 4.7 cm, CHAVA, mild MR, mild-mod TR RVSP 32 mmHg April 20, 2014 Nuc stress: No ischemia LVEF 63% A: 1. Acute on chronic diastolic heart failure in context of 2. Paroxysmal atrial fibrillation/flutter recent DCCV on Eliquis 3. Hypertensive cardiovascular disease 4. Reactive airway disease/bronchial asthma r/o COPD 5. Sotalol-associated torsades de pointes P:1. Continue IV diuresis with monitor diuretic response, renal function and electrolytes 2. Change Bystolic 5 bid to Lopressor 25 bid and observe for rate-reponse and bronchaspasm, Diovan 80 qd and Lipitor 40 qhs 3. Continur Eliquis 5 bid, patient confirms compliance 4. BD, singulair, O2 as needed, outpatient PFTs, 5. Referral for RFA of arrhythmia given symptomatic recurrence, repeat DCCV trial 6. Thank you for consultative opportunity
--- NOTE | 2017-12-16 15:24 | ECHO ---
Name: DAYNA SARMIENTO Exam:Adult Echocardiogram Study Date: 12/16/2017 08:24 AM Age: 72 yrs Reason For Study: CHF Height: 69 in Weight: 200 lb BSA: 2.1 m2 MMode/2D Measurements & Calculations IVSd: 1.2 cm Ao root diam: 2.9 cm LVIDd: 4.4 cm ACS: 1.6 cm LVIDs: 3.2 cm LVPWd: 1.3 cm EDV(Teich): 88.5 ml LVOT diam: 2.0 cm ESV(Teich): 41.1 ml Doppler Measurements & Calculations Med Peak E' Desmond: 6.7 cm/sec Lat Peak E' Desmond: 6.7 cm/sec Procedure The study was technically difficult with many images being suboptimal in quality. Left Ventricle The left ventricle is grossly normal size. Left ventricular systolic function is moderately reduced. There is moderate global hypokinesis of the left ventricle. Regional wall motion abnormalities cannot be exclu ded due to limited visualization. Right Ventricle The right ventricle is not well visualized. The right ventricle is mild to moderately dilated. Atria The left atrium is moderately dilated. The right atrium is severely dilated. Mitral Valve There is mild mitral valve thickening. There is no mitral valve stenosis. There is trace to mild mitr al regurgitation. Tricuspid Valve There is mild tricuspid valve thickening. There is no tricuspid stenosis. There is moderate tricuspid regurgitation. Aortic Valve The aortic valve is normal in structure and function. No hemodynamically significant valvular aortic stenosis. No aortic regurgitation is present. Pulmonic Valve The pulmonic valve is not well visualized. Great Vessels The aortic root is normal size. Pericardium/Pleura There is no pericardial effusion. Interpretation Summary The study was technically difficult with many images being suboptimal in quality. The left ventricle is grossly normal size. The left atrium is moderately dilated. The right atrium is severely dilated. The right ventricle is not well visualized. The right ventricle is mild to moderately dilated. Left ventricular systolic function is moderately reduced. There is moderate global hypokinesis of the left ventricle. Regional wall motion abnormalities cannot be excluded due to limited visualization. There is trace to mild mitral regurgitation. There is moderate tricuspid regurgitation. MD Sarath Ayala 12/16/2017 03:24 PM
[2017-12-16] MEDS ORDERED: dilTIAZem HCL 125 MG/25 ML - 25 ML VIAL ONE ×2 (16:03→16:54)
[2017-12-16] MEDS: METOPROLOL TARTRATE 25 MG TABLET (FP) PO SCH ×2 (16:38→21:27)
[2017-12-16] MEDS ORDERED: METOPROLOL TARTRATE 25 MG TABLET (FP) ONE (16:38)
[2017-12-16] MEDS: dilTIAZem HCL 25 MG/5 ML - 5 ML VIAL IVPUSH PRN (16:52)
--- NOTE | 2017-12-16 18:02 | PN ---
Progress Note (short form) - Note Progress Note: PULMONARY CONSULTATION DICTATED 12/16/17 IMP DYSPNEA ACUTE ON CHRONIC CHF LV DYSFUNCTION RV DYSFUNCTION ASTHMA PAF S/P CARDIOVERSION HTN ELIE PLAN IV LASIX O2 MEDROL X 48HRS INHALED BRONCHODILATORS DAILY WT STRICT I+Os F/U CHEST X-RAYS MONITOR LYTES D/C ABX DR HERRING Problem List - Problems (1) Acute exacerbation of CHF (congestive heart failure) Code(s): I50.9 - HEART FAILURE, UNSPECIFIED Qualifiers: Heart failure type: diastolic Qualified Code(s): I50.33 - Acute on chronic diastolic (congestive) heart failure (2) Afib Code(s): I48.91 - UNSPECIFIED ATRIAL FIBRILLATION Qualifiers: Atrial fibrillation type: unspecified Qualified Code(s): I48.91 - Unspecified atrial fibrillation (3) Anticoagulant long-term use Code(s): Z79.01 - [facility] (CURRENT) USE OF ANTICOAGULANTS (4) Asthma Code(s): J45.909 - UNSPECIFIED ASTHMA, UNCOMPLICATED (5) CHF (congestive heart failure) Code(s): I50.9 - HEART FAILURE, UNSPECIFIED Qualifiers: Heart failure type: combined systolic and diastolic Heart failure chronicity: acute on chronic Qualified Code(s): I50.43 - Acute on chronic combined systolic (congestive) and diastolic (congestive) heart failure (6) ELIE (acute kidney injury) Code(s): N17.9 - ACUTE KIDNEY FAILURE, UNSPECIFIED (7) Dyspnea on exertion Code(s): R06.09 - OTHER FORMS OF DYSPNEA (8) Elevated INR Code(s): R79.1 - ABNORMAL COAGULATION PROFILE (9) HLD (hyperlipidemia) Code(s): E78.5 - HYPERLIPIDEMIA, UNSPECIFIED Qualifiers: Hyperlipidemia type: pure hypercholesterolemia Qualified Code(s): E78.00 - Pure hypercholesterolemia, unspecified; E78.0 - Pure hypercholesterolemia (10) Hypertensive cardiovascular disease Code(s): I11.9 - HYPERTENSIVE HEART DISEASE WITHOUT HEART FAILURE Qualifiers: Heart failure presence: with heart failure Heart failure type: combined systolic and diastolic Heart failure chronicity: acute on chronic Qualified Code(s): I11.0 - Hypertensive heart disease with heart failure; I50.43 - Acute on chronic combined systolic (congestive) and diastolic (congestive) heart failure
[2017-12-16] MEDS: ALBUTEROL SO4 2.5/IPRATROPIUM 0.5 INH SOL 3 ML VIAL.NEB. NEB PRN (20:50)
[2017-12-16] MEDS: MONTELUKAST NA 10 MG TABLET PO SCH (21:27)
[2017-12-16] MEDS: ATORVASTATIN CA 40 MG TABLET (FP) PO SCH (21:27)
[2017-12-17] MEDS: methylPREDNISolone NA SUCC 40 MG/1 ML VIAL IVPUSH SCH ×3 (03:19→17:13)
[2017-12-17 06:30] LABS: BASO % 0.1 % (0-2.0); HEMATOCRIT 39.4 % (35.4-49); HEMOGLOBIN 12.3 GM/dL (11.7-16.9); LYMPH % 5.4 % (8-40); MCH 29.1 pg (25.7-33.7); MCHC 31.3 g/dl (32.0-35.9); MEAN CELL VOLUME 93.1 fl (80-96); MEAN PLT VOLUME 10.1 fl (7.5-11.1); MONO % 6.5 % (3.8-10.2); PLATELET COUNT 210 K/MM3 (134-434); RBC 4.23 M/mm3 (4.00-5.60); RDW 13.5 % (11.9-15.9); WHITE BLOOD COUNT 13.5 K/mm3 (4.0-10.0)
--- NOTE | 2017-12-17 06:33 | CONS ---
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 Patient is status post DCCV. Readmitted earlier today secondary to increasing shortness of breath. Patient was recently hospitalized secondary to diastolic heart failure secondary to rapid atrial fibrillation. He was apparently doing well until about a week or so, week and a half history of increasing shortness of breath, dyspnea on exertion, and weakness. Normally apparently the patient can walk a few blocks without developing significant dyspnea. Over the past couple of days he can only walk a few feet and gets markedly dyspneic. He also noted increasing lower extremity edema. He denied any chest pain, nausea, vomiting, diaphoresis. Denies hemoptysis. He presented to the emergency room with the above. In the ER, he was felt to have CHF. He was administered Lasix. He was started on Lasix as well as Cardizem secondary to rapid atrial fibrillation. He was evaluated by Dr. Ramesh Pereira for cardiology consultation. Patient denies any history of tobacco use. There is no history of occupational exposure to chemicals or fumes. PAST MEDICAL HISTORY: Again includes diastolic heart failure, PAF/flutter, sotalol-associated torsades de point, hypertensive cardiovascular disease, asthma, recent hospitalization secondary to acute on chronic diastolic heart failure. REVIEW OF SYSTEMS: Positive orthopnea. Positive dyspnea. No cough. No chest pain. Positive palpitations. No nausea. No vomiting. No abdominal pain. Positive lower extremity edema. CURRENT MEDICATIONS: Include Symbicort 160/4.5, Solu-Medrol 40 q.8, Zithromax, Eliquis, Spiriva, Xopenex, Lopressor, Cardizem, Lipitor, and Singulair. PHYSICAL EXAMINATION: General: The patient is a well-developed, well-nourished male, awake, alert, comfortable. In no acute distress. He is afebrile. Vital Signs: Blood pressure 115/80, respiratory rate 16, heart rate is 121, O2 saturation is 95% on 2 L. HEENT: Normocephalic, atraumatic. Neck: Supple. Heart: Tachycardic. S1, S2. Chest: Bilateral wheezes throughout. Abdomen: Soft, bowel sounds positive. Extremities: Bilateral lower extremity edema. LABORATORY: BUN 11, creatinine 1.5. Of note on admission BUN was 7, creatinine 1.8. INR is 1.39. Blood gas: pH 7.40, pCO2 of 54, pO2 of 95, bicarbonate 32, and saturation of 97 consistent with compensated respiratory acidosis. WBC 7.9, hemoglobin 13.3, hematocrit 42.5 with platelet count of 220,000. Chest x-ray: No cardiomegaly, prominent hilar, increased upper lobe markings. Echocardiogram positive for moderately reduced left ventricular systolic function, moderate global hypokinesis of the left ventricle. His right ventricle is mildly to moderately dilated pulmonary artery. Right atrium is severely dilated. Left atrium moderately dilated. IMPRESSION: Dyspnea, likely secondary to multiple factors. 1. Acute on chronic diastolic heart failure. 2. Possible underlying asthma exacerbation. 3. Paroxysmal atrial fibrillation. 4. Sotalol-associated torsades de point. PLAN: Continue diuresis. Daily weights. Supplemental O2. Short course of Medrol. Inhaled bronchodilators p.r.n. Weight control. Continue anticoagulation. Obtain followup chest x-ray. Discontinue antibiotics. Discontinue Zithromax. Patient without a cough or sputum production. LISA HERRING M.D. ROD/[id number]
[2017-12-17 06:47] LABS: ANION GAP 7 MMOL/L (8-16); BLOOD UREA NITROGEN 28 mg/dL (7-18); CALCIUM 8.7 mg/dL (8.5-10.1); CHLORIDE 102 mmol/L (98-107); CO2 34 mmol/L (21-32); CREATININE 1.4 mg/dL (0.55-1.3); GLUCOSE,RANDOM 211 mg/dL (74-106); POTASSIUM 4.3 mmol/L (3.5-5.1); SODIUM 143 mmol/L (136-145)
[2017-12-17] MEDS: ALBUTEROL SO4 2.5/IPRATROPIUM 0.5 INH SOL 3 ML VIAL.NEB. NEB PRN (08:10)
[2017-12-17] MEDS: APIXABAN 5 MG TABLET PO SCH ×2 (09:03→21:34)
[2017-12-17] MEDS: dilTIAZem HCL 25 MG/5 ML - 5 ML VIAL IVPUSH PRN (09:03)
[2017-12-17] MEDS: METOPROLOL TARTRATE 25 MG TABLET (FP) PO SCH (09:03)
[2017-12-17] MEDS: FUROSEMIDE 40 MG/4 ML INJECTABLE VIAL IVPUSH SCH (09:03)
[2017-12-17] MEDS: TIOTROPIUM BROMIDE 2.5 MCG (SPIRIVA) RESPIMAT INHALER IH SCH (09:16)
--- NOTE | 2017-12-17 09:32 | PN ---
Progress Note, Physician Chief Complaint: Pt sitting in bed in no acute distress. still weak, sob on exertion . Denies any chest pain/palpitation, worsening sob, n/v/d - Current Medication List Current Medications: Active Medications Albuterol/Ipratropium (Duoneb -) 1 amp NEB Q6H PRN PRN Reason: SHORTNESS OF BREATH Last Admin: 12/17/17 08:10 Dose: 1 amp Apixaban (Eliquis -) 5 mg PO BID [facility] Last Admin: 12/17/17 09:03 Dose: 5 mg Atorvastatin Calcium (Lipitor -) 40 mg PO HS [facility] Last Admin: 12/16/17 21:27 Dose: 40 mg Diltiazem HCl (Cardizem Injection -) 10 mg IVPUSH Q4H PRN PRN Reason: TACHYCARDIA Last Admin: 12/17/17 09:03 Dose: 10 mg Furosemide (Lasix Injection -) 40 mg IVPUSH DAILY [facility] Last Admin: 12/17/17 09:03 Dose: 40 mg Levalbuterol HCl (Xopenex) 0.31 mg IH Q8H PRN PRN Reason: ASTHMA Methylprednisolone Sodium Succinate (Solu-Medrol -) 40 mg IVPUSH Q8H-IV [facility] Last Admin: 12/17/17 09:03 Dose: 40 mg Metoprolol Tartrate (Lopressor -) 25 mg PO BID [facility] Last Admin: 12/17/17 09:03 Dose: 25 mg Montelukast Sodium (Singulair -) 10 mg PO HS [facility] Last Admin: 12/16/17 21:27 Dose: 10 mg Tiotropium [place] (Spiriva Respimat) 2 puff IH DAILY [facility] Last Admin: 12/17/17 09:16 Dose: 2 puff - Objective Vital Signs: Vital Signs Temperature 98.4 F 12/17/17 08:22 Pulse Rate 133 H 12/17/17 08:22 Respiratory Rate 20 12/17/17 08:22 Blood Pressure 111/84 12/17/17 08:22 O2 Sat by Pulse Oximetry (%) 98 12/17/17 08:22 Constitutional: Yes: Well Nourished, No Distress, Calm Cardiovascular: Yes: Tachycardia, Pulse Irregular Respiratory: Yes: Regular, Diminished, On Nasal O2, Rhonchi, SOB, Wheezes. No: Accessory Muscle Use, Tachypnea Gastrointestinal: Yes: WNL, Normal Bowel Sounds, Soft. No: Distention, Tenderness Genitourinary: Yes: WNL Edema: Yes Edema: LLE: 2+, RLE: 1+ Neurological: Yes: WNL, Alert, Oriented Psychiatric: Yes: WNL, Alert, Oriented Labs: CBC, BMP 12/17/17 05:30 12/17/17 05:30 INR, PTT INR 1.39 (0.83-1.09) H 12/15/17 22:47 Assessment/Plan (1) Asthma exacerbation Assessment/Plan: lung exam w/ rhonchi/wheezes- slowly improving continue iv steroids nebs/ih pulm following Code(s): J45.901 - UNSPECIFIED ASTHMA WITH (ACUTE) EXACERBATION Qualifiers: Asthma severity: moderate Asthma persistence: persistent Qualified Code(s ): J45.41 - Moderate persistent asthma with (acute) exacerbation (2) Atrial flutter with rapid ventricular response Assessment/Plan: uncontrolled continue bystolic /eliquis cardizem iv prn cardiology following plan for cardioversion tmrw Code(s): I48.92 - UNSPECIFIED ATRIAL FLUTTER (3) CHF (congestive heart failure) Assessment/Plan: suspect 2/2 uncontrolled aflutter +sob, +le edema lasix iv 40mg daily monitor Code(s): I50.9 - HEART FAILURE, UNSPECIFIED Qualifiers: Heart failure type: combined systolic and diastolic Heart failure chronicity: acute on chronic Qualified Code(s): I50.43 - Acute on chronic combined systolic (congestive) and diastolic (congestive) heart failure (4) ELIE (acute kidney injury) Assessment/Plan: improving monitor Code(s): N17.9 - ACUTE KIDNEY FAILURE, UNSPECIFIED (5) HLD (hyperlipidemia) Assessment/Plan: stable continue statin Code(s): E78.5 - HYPERLIPIDEMIA, UNSPECIFIED Qualifiers: Hyperlipidemia type: pure hypercholesterolemia Qualified Code(s): E78.00 - Pure hypercholesterolemia, unspecified; E78.0 - Pure hypercholesterolemia (6) Elevated WBC count Assessment/Plan: 2/2 steroids Code(s): D72.829 - ELEVATED WHITE BLOOD CELL COUNT, UNSPECIFIED (7) Hyperglycemia Assessment/Plan: 2/2 steroids bgm, insulin sliding scale ordered, while on steroids Code(s): R73.9 - HYPERGLYCEMIA, UNSPECIFIED
[2017-12-17] MEDS ORDERED: AZITHROMYCIN 250 MG TABLET PO SCH (10:00)
--- NOTE | 2017-12-17 11:37 | PN ---
Progress Note, Physician History of Present Illness: Remains in rapid aflutter with weakness, shortness of breath, fatigue and decreased exercise capacity. - Current Medication List Current Medications: Active Medications Albuterol/Ipratropium (Duoneb -) 1 amp NEB Q6H PRN PRN Reason: SHORTNESS OF BREATH Last Admin: 12/17/17 08:10 Dose: 1 amp Apixaban (Eliquis -) 5 mg PO BID [facility] Last Admin: 12/17/17 09:03 Dose: 5 mg Atorvastatin Calcium (Lipitor -) 40 mg PO [facility] Last Admin: 12/16/17 21:27 Dose: 40 mg Diltiazem HCl (Cardizem Injection -) 10 mg IVPUSH Q4H PRN PRN Reason: TACHYCARDIA Last Admin: 12/17/17 09:03 Dose: 10 mg Furosemide (Lasix Injection -) 40 mg IVPUSH DAILY [facility] Last Admin: 12/17/17 09:03 Dose: 40 mg Levalbuterol HCl (Xopenex) 0.31 mg IH Q8H PRN PRN Reason: ASTHMA Methylprednisolone Sodium Succinate (Solu-Medrol -) 40 mg IVPUSH Q8H-IV [facility] Last Admin: 12/17/17 09:03 Dose: 40 mg Metoprolol Tartrate (Lopressor -) 25 mg PO BID [facility] Last Admin: 12/17/17 09:03 Dose: 25 mg Montelukast Sodium (Singulair -) 10 mg PO HS [facility] Last Admin: 12/16/17 21:27 Dose: 10 mg Tiotropium [place] (Spiriva Respimat) 2 puff IH DAILY [facility] Last Admin: 12/17/17 09:16 Dose: 2 puff - Objective Vital Signs: Vital Signs Temperature 98.4 F 12/17/17 08:22 Pulse Rate 133 H 12/17/17 08:22 Respiratory Rate 20 12/17/17 08:22 Blood Pressure 111/84 12/17/17 08:22 O2 Sat by Pulse Oximetry (%) 98 12/17/17 08:22 Constitutional: Yes: No Distress, Calm Neck: Yes: Supple Cardiovascular: Yes: Tachycardia Respiratory: Yes: Regular, CTA Bilaterally Gastrointestinal: Yes: Normal Bowel Sounds, Soft Edema: Yes Edema: LLE: Trace, RLE: Trace Labs: CBC, BMP 12/17/17 05:30 12/17/17 05:30 INR, PTT INR 1.39 (0.83-1.09) H 12/15/17 22:47 Problem List - Problems (1) Anticoagulant long-term use Code(s): Z79.01 - [facility] (CURRENT) USE OF ANTICOAGULANTS (2) Acute exacerbation of CHF (congestive heart failure) Code(s): I50.9 - HEART FAILURE, UNSPECIFIED Qualifiers: Heart failure type: diastolic Qualified Code(s): I50.33 - Acute on chronic diastolic (congestive) heart failure (3) Atrial flutter with rapid ventricular response Code(s): I48.92 - UNSPECIFIED ATRIAL FLUTTER (4) Dyspnea on exertion Code(s): R06.09 - OTHER FORMS OF DYSPNEA (5) HLD (hyperlipidemia) Code(s): E78.5 - HYPERLIPIDEMIA, UNSPECIFIED Qualifiers: Hyperlipidemia type: pure hypercholesterolemia Qualified Code(s): E78.00 - Pure hypercholesterolemia, unspecified; E78.0 - Pure hypercholesterolemia (6) Hypertensive cardiovascular disease Code(s): I11.9 - HYPERTENSIVE HEART DISEASE WITHOUT HEART FAILURE Qualifiers: Heart failure presence: with heart failure Heart failure type: combined systolic and diastolic Heart failure chronicity: acute on chronic Qualified Code(s): I11.0 - Hypertensive heart disease with heart failure; I50.43 - Acute on chronic combined systolic (congestive) and diastolic (congestive) heart failure Assessment/Plan August 14, 2017 cLVH with abnormal septal motion, normal LVEF 65-70%, MAC, mild LAE 4.7 cm, CHAVA, mild MR, mild-mod TR RVSP 32 mmHg April 20, 2014 Nuc stress: No ischemia LVEF 63% A: 1. Acute on chronic diastolic heart failure in context of 2. Paroxysmal atrial fibrillation/flutter recent DCCV on Eliquis 3. Hypertensive cardiovascular disease 4. Reactive airway disease/bronchial asthma r/o COPD 5. Sotalol-associated torsades de pointes 6. Acute on CKD improving P:1. Continue IV diuresis with monitor diuretic response, renal function and electrolytes 2. Increase Lopressor 50 bid, add amio 200 bid and start Cardizem gtt and observe for rate-reponse and bronchaspasm, Diovan 80 qd and Lipitor 40 qhs 3. Continur Eliquis 5 bid, patient confirms compliance 4. Minimize use of BD, singulair, O2 as needed, steroid taper, outpatient PFTs, 5. Referral for RFA of arrhythmia given symptomatic recurrence, plan for repeat DCCV in AM given difficulty with rate-control, KAREN-guidance not indicated with Eliquis compliance
[2017-12-17] MEDS ORDERED: METOPROLOL TARTRATE 25 MG TABLET (FP) PO ONE (11:47)
[2017-12-17] MEDS ORDERED: dilTIAZem HCL 50 MG/10 ML - 10 ML VIAL IVPUSH ONE (11:48)
--- NOTE | 2017-12-17 13:28 | PN ---
Progress Note (short form) - Note Progress Note: PULMONARY Still with shortness of breath, nonproductive cough and wheezing. Heart rates rapid. Vital Signs Period Temp Pulse Resp BP Sys/[place] Pulse Ox Last 24 Hr 97.3 F-98.4 F 59-135 16-20 111-132/69-92 95-100 Gen: NAD at rest Heart: tachycardic, regular Lung: bilateral wheezes Abd: soft, nontender Ext: + edema CBC, BMP 12/17/17 05:30 12/17/17 05:30 Active Medications Amiodarone HCl (Cordarone -) 200 mg PO BID [facility] Apixaban (Eliquis -) 5 mg PO BID [facility] Last Admin: 12/17/17 09:03 Dose: 5 mg Atorvastatin Calcium (Lipitor -) 40 mg PO HS [facility] Last Admin: 12/16/17 21:27 Dose: 40 mg Furosemide (Lasix Injection -) 40 mg IVPUSH DAILY [facility] Last Admin: 12/17/17 09:03 Dose: 40 mg Diltiazem HCl 125 mg/ Sodium (Chloride) 125 mls @ 5 mls/hr IVPB TITR [facility]; Protocol Insulin Aspart (Novolog Vial Sliding Scale -) 1 vial SQ ACHS [facility]; Protocol Methylprednisolone Sodium Succinate (Solu-Medrol -) 40 mg IVPUSH Q8H-IV [facility] Last Admin: 12/17/17 09:03 Dose: 40 mg Metoprolol Tartrate (Lopressor -) 50 mg PO BID [facility] Montelukast Sodium (Singulair -) 10 mg PO HS [facility] Last Admin: 12/16/17 21:27 Dose: 10 mg A/P Acute on Chronic Diastolic Heart Failure Atrial Flutter with RVR Acute Bronchospasm Acute on Chronic Renal Failure HTN - rate control - continue anticoagulation - for KAREN/DCCV per cardiology - continue medrol - inhaled bronchodilators - O2 as needed - outpt PFTs and f/u
[2017-12-17] MEDS: DILTIAZEM INJECTION 125 MG in SODIUM CHLORIDE 100 ML IVPB SCH (13:59)
[2017-12-17] MEDS: INSULIN SLIDING SCALE (NOVOLOG) 1 VIAL SQ SCH ×3 (17:14→21:39)
[2017-12-17] MEDS ORDERED: INSULIN (NOVOLOG) ASPART 100 UNITS/ML 10ML VIAL ONE (20:54)
[2017-12-17] MEDS: AMIODARONE HCL 200 MG TABLET (FP) PO SCH (21:34)
[2017-12-17] MEDS: MONTELUKAST NA 10 MG TABLET PO SCH (21:34)
[2017-12-17] MEDS: METOPROLOL TARTRATE 50 MG TABLET (FP) PO SCH (21:34)
[2017-12-17] MEDS: ATORVASTATIN CA 40 MG TABLET (FP) PO SCH (21:34)
[2017-12-18] MEDS: methylPREDNISolone NA SUCC 40 MG/1 ML VIAL IVPUSH SCH ×4 (02:15→21:42)
[2017-12-18] MEDS: INSULIN SLIDING SCALE (NOVOLOG) 1 VIAL SQ SCH ×4 (06:43→22:11)
[2017-12-18 07:35] LABS: HEMATOCRIT 39.4 % (35.4-49); HEMOGLOBIN 12.5 GM/dL (11.7-16.9); LYMPH % 3.8 % (8-40); MCH 29.3 pg (25.7-33.7); MCHC 31.7 g/dl (32.0-35.9); MEAN CELL VOLUME 92.4 fl (80-96); MEAN PLT VOLUME 10.4 fl (7.5-11.1); MONO % 3.3 % (3.8-10.2); NEUT % 92.9 % (42.8-82.8); PLATELET COUNT 212 K/MM3 (134-434); RBC 4.27 M/mm3 (4.00-5.60); RDW 13.4 % (11.9-15.9); WHITE BLOOD COUNT 16.1 K/mm3 (4.0-10.0)
[2017-12-18] MEDS: ALBUTEROL SO4 2.5/IPRATROPIUM 0.5 INH SOL 3 ML VIAL.NEB. NEB PRN ×2 (07:42→11:18)
[2017-12-18 07:55] LABS: ANION GAP 7 MMOL/L (8-16); BLOOD UREA NITROGEN 33 mg/dL (7-18); CALCIUM 8.8 mg/dL (8.5-10.1); CHLORIDE 100 mmol/L (98-107); CO2 34 mmol/L (21-32); CREATININE 1.5 mg/dL (0.55-1.3); GLUCOSE,RANDOM 228 mg/dL (74-106); PHOSPHOROUS 4.9 mg/dL (2.5-4.9); POTASSIUM 4.2 mmol/L (3.5-5.1); SODIUM 141 mmol/L (136-145)
[2017-12-18] MEDS: AMIODARONE HCL 200 MG TABLET (FP) PO SCH ×2 (09:42→21:42)
[2017-12-18] MEDS: APIXABAN 5 MG TABLET PO SCH ×2 (09:42→21:42)
[2017-12-18] MEDS: METOPROLOL TARTRATE 50 MG TABLET (FP) PO SCH (09:42)
[2017-12-18] MEDS: FUROSEMIDE 40 MG/4 ML INJECTABLE VIAL IVPUSH SCH (09:43)
--- NOTE | 2017-12-18 10:23 | PN ---
Progress Note, Physician History of Present Illness: Remains in rapid aflutter with weakness, shortness of breath, fatigue and decreased exercise capacity despite Cardizem gtt, Lopressor and amio oral load. - Current Medication List Current Medications: Active Medications Albuterol/Ipratropium (Duoneb -) 1 amp NEB Q4H PRN PRN Reason: SHORTNESS OF BREATH Last Admin: 12/18/17 07:42 Dose: 1 amp Amiodarone HCl (Cordarone -) 200 mg PO BID [facility] [place] Last Admin: 12/18/17 09:42 Dose: 200 mg Apixaban (Eliquis -) 5 mg PO BID [facility] [place] Last Admin: 12/18/17 09:42 Dose: 5 mg Atorvastatin Calcium (Lipitor -) 40 mg PO [facility] Last Admin: 12/17/17 21:34 Dose: 40 mg Furosemide (Lasix Injection -) 40 mg IVPUSH DAILY [facility] [place] Last Admin: 12/18/17 09:43 Dose: 40 mg Diltiazem HCl 125 mg/ Sodium (Chloride) 125 mls @ 5 mls/hr IVPB TITR [facility] [place]; Protocol Last Titration: 12/17/17 21:35 Dose: 10 mg/hr, 10 mls/hr Insulin Aspart (Novolog Vial Sliding Scale -) 1 vial SQ ACHS [facility] [place]; Protocol Last Admin: 12/18/17 06:43 Dose: Not Given Methylprednisolone Sodium Succinate (Solu-Medrol -) 40 mg IVPUSH Q8H-IV [facility] Last Admin: 12/18/17 09:42 Dose: 40 mg Metoprolol Tartrate (Lopressor -) 50 mg PO BID [facility] [place] Last Admin: 12/18/17 09:42 Dose: 50 mg Montelukast Sodium (Singulair -) 10 mg PO HS [facility] [place] Last Admin: 12/17/17 21:34 Dose: 10 mg - Objective Vital Signs: Vital Signs Temperature 98 F 12/18/17 05:52 Pulse Rate 116 H 12/18/17 05:52 Respiratory Rate 20 12/18/17 09:00 Blood Pressure 113/78 12/18/17 05:52 O2 Sat by Pulse Oximetry (%) 97 12/18/17 09:00 Constitutional: Yes: No Distress, Calm, Thin Neck: Yes: Supple Cardiovascular: Yes: Tachycardia Respiratory: Yes: Regular, Diminished, On Nasal O2 Gastrointestinal: Yes: Soft, Hypoactive Bowel Sounds Edema: No Labs: CBC, BMP 12/18/17 05:30 12/18/17 05:30 INR, PTT INR 1.39 (0.83-1.09) H 12/15/17 22:47 - ....Imaging EKG: Report Reviewed (Rapid aflutter 130s) Problem List - Problems (1) Anticoagulant long-term use Code(s): 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 (2) Acute exacerbation of CHF (congestive heart failure) Code(s): I50.9 - HEART FAILURE, UNSPECIFIED Qualifiers: Heart failure type: diastolic Qualified Code(s): I50.33 - Acute on chronic diastolic (congestive) heart failure (3) Atrial flutter with rapid ventricular response Code(s): I48.92 - UNSPECIFIED ATRIAL FLUTTER (4) Dyspnea on exertion Code(s): R06.09 - OTHER FORMS OF DYSPNEA (5) HLD (hyperlipidemia) Code(s): E78.5 - HYPERLIPIDEMIA, UNSPECIFIED Qualifiers: Hyperlipidemia type: pure hypercholesterolemia Qualified Code(s): E78.00 - Pure hypercholesterolemia, unspecified; E78.0 - Pure hypercholesterolemia (6) Hypertensive cardiovascular disease Code(s): I11.9 - HYPERTENSIVE HEART DISEASE WITHOUT HEART FAILURE Qualifiers: Heart failure presence: with heart failure Heart failure type: combined systolic and diastolic Heart failure chronicity: acute on chronic Qualified Code(s): I11.0 - Hypertensive heart disease with heart failure; I50.43 - Acute on chronic combined systolic (congestive) and diastolic (congestive) heart failure (7) Chronic kidney disease Code(s): N18.9 - CHRONIC KIDNEY DISEASE, UNSPECIFIED Qualifiers: Chronic kidney disease stage: stage 2 (mild) Qualified Code(s): N18.2 - Chronic kidney disease, stage 2 (mild) Assessment/Plan August 14, 2017 cLVH with abnormal septal motion, normal LVEF 65-70%, MAC, mild LAE 4.7 cm, CHAVA, mild MR, mild-mod TR RVSP 32 mmHg April 20, 2014 Nuc stress: No ischemia LVEF 63% A: 1. Acute on chronic diastolic heart failure in context of 2. Persistent atrial fibrillation/flutter with RVR recent DCCV on Eliquis 3. Hypertensive cardiovascular disease 4. Reactive airway disease/bronchial asthma r/o COPD 5. Sotalol-associated torsades de pointes 6. Acute on CKD improving P:1. Continue IV diuresis with monitor diuretic response, renal function and electrolytes 2. Continue Lopressor 50 bid, amio 200 bid and Cardizem gtt and observe for rate -reponse and bronchaspasm, Diovan 80 qd and Lipitor 40 qhs 3. Continur Eliquis 5 bid, patient confirms compliance 4. Minimize use of BD, singulair, O2 as needed, steroid taper, outpatient PFTs, 5. Referral for RFA of arrhythmia given symptomatic recurrence, plan for repeat DCCV in AM given difficulty with rate-control, KAREN-guidance not indicated with Eliquis compliance
[2017-12-18 10:41] VITALS: BMI 28.7
[2017-12-18] MEDS ORDERED: LEVALBUTEROL HCL 0.63 MG/3 ML VIAL.NEB. IH PRN (11:54)
--- NOTE | 2017-12-18 11:54 | PN ---
Progress Note, Physician History of Present Illness: PULMONARY ALERT,LESS DYSPNEIC,CARDIOVERSION CANCELLED SECONDARY TO INCREASED BRONCHOSPASM - Current Medication List Current Medications: Active Medications Albuterol/Ipratropium (Duoneb -) 1 amp NEB Q4H PRN PRN Reason: SHORTNESS OF BREATH Last Admin: 12/18/17 11:18 Dose: 1 amp Amiodarone HCl (Cordarone -) 200 mg PO BID [facility] Last Admin: 12/18/17 09:42 Dose: 200 mg Apixaban (Eliquis -) 5 mg PO BID [facility] Last Admin: 12/18/17 09:42 Dose: 5 mg Atorvastatin Calcium (Lipitor -) 40 mg PO HS [facility] Last Admin: 12/17/17 21:34 Dose: 40 mg Furosemide (Lasix Injection -) 40 mg IVPUSH DAILY [facility] Last Admin: 12/18/17 09:43 Dose: 40 mg Diltiazem HCl 125 mg/ Sodium (Chloride) 125 mls @ 5 mls/hr IVPB TITR [facility]; Protocol Last Titration: 12/17/17 21:35 Dose: 10 mg/hr, 10 mls/hr Insulin Aspart (Novolog Vial Sliding Scale -) 1 vial SQ ACHS [facility]; Protocol Last Admin: 12/18/17 06:43 Dose: Not Given Methylprednisolone Sodium Succinate (Solu-Medrol -) 40 mg IVPUSH Q8H-IV [facility] Last Admin: 12/18/17 09:42 Dose: 40 mg Montelukast Sodium (Singulair -) 10 mg PO HS [facility] Last Admin: 12/17/17 21:34 Dose: 10 mg - Objective Vital Signs: Vital Signs Temperature 98 F 12/18/17 05:52 Pulse Rate 116 H 12/18/17 05:52 Respiratory Rate 20 12/18/17 09:00 Blood Pressure 113/78 12/18/17 05:52 O2 Sat by Pulse Oximetry (%) 97 12/18/17 09:00 Constitutional: Yes: Well Nourished, Calm Eyes: Yes: WNL HENT: Yes: WNL Neck: Yes: WNL Cardiovascular: Yes: Tachycardia, Pulse Irregular, S1, S2 Respiratory: Yes: Wheezes (BILATERAL WHEEZES) Gastrointestinal: Yes: Normal Bowel Sounds, Soft Edema: Yes Labs: CBC, BMP 12/18/17 05:30 12/18/17 05:30 INR, PTT INR 1.39 (0.83-1.09) H 12/15/17 22:47 Problem List - Problems (1) Acute exacerbation of CHF (congestive heart failure) Code(s): I50.9 - HEART FAILURE, UNSPECIFIED Qualifiers: Heart failure type: diastolic Qualified Code(s): I50.33 - Acute on chronic diastolic (congestive) heart failure (2) Afib Code(s): I48.91 - UNSPECIFIED ATRIAL FIBRILLATION Qualifiers: Atrial fibrillation type: unspecified Qualified Code(s): I48.91 - Unspecified atrial fibrillation (3) Anticoagulant long-term use Code(s): Z79.01 - PRISON (CURRENT) USE OF ANTICOAGULANTS (4) Asthma Code(s): J45.909 - UNSPECIFIED ASTHMA, UNCOMPLICATED (5) CHF (congestive heart failure) Code(s): I50.9 - HEART FAILURE, UNSPECIFIED Qualifiers: Heart failure type: combined systolic and diastolic Heart failure chronicity: acute on chronic Qualified Code(s): I50.43 - Acute on chronic combined systolic (congestive) and diastolic (congestive) heart failure (6) ELIE (acute kidney injury) Code(s): N17.9 - ACUTE KIDNEY FAILURE, UNSPECIFIED (7) Dyspnea on exertion Code(s): R06.09 - OTHER FORMS OF DYSPNEA (8) Elevated INR Code(s): R79.1 - ABNORMAL COAGULATION PROFILE (9) HLD (hyperlipidemia) Code(s): E78.5 - HYPERLIPIDEMIA, UNSPECIFIED Qualifiers: Hyperlipidemia type: pure hypercholesterolemia Qualified Code(s): E78.00 - Pure hypercholesterolemia, unspecified; E78.0 - Pure hypercholesterolemia (10) Hypertensive cardiovascular disease Code(s): I11.9 - HYPERTENSIVE HEART DISEASE WITHOUT HEART FAILURE Qualifiers: Heart failure presence: with heart failure Heart failure type: combined systolic and diastolic Heart failure chronicity: acute on chronic Qualified Code(s): I11.0 - Hypertensive heart disease with heart failure; I50.43 - Acute on chronic combined systolic (congestive) and diastolic (congestive) heart failure Assessment/Plan IMP DYSPNEA ACUTE ON CHRONIC CHF LV DYSFUNCTION RV DYSFUNCTION ASTHMA PAF S/P CARDIOVERSION HTN ELIE PLAN IV LASIX O2 MEDROL INHALED BRONCHODILATORS DAILY WT STRICT I+Os F/U CHEST X-RAYS MONITOR LYTES DR BRILL Problem List - Problems (1) Acute exacerbation of CHF (congestive heart failure) Code(s): I50.9 - HEART FAILURE, UNSPECIFIED Qualifiers: Heart failure type: diastolic Qualified Code(s): I50.33 - Acute on chronic diastolic (congestive) heart failure (2) Afib Code(s): I48.91 - UNSPECIFIED ATRIAL FIBRILLATION Qualifiers: Atrial fibrillation type: unspecified Qualified Code(s): I48.91 - Unspecified atrial fibrillation (3) Anticoagulant long-term use Code(s): Z79.01 - PRISON (CURRENT) USE OF ANTICOAGULANTS (4) Asthma Code(s): J45.909 - UNSPECIFIED ASTHMA, UNCOMPLICATED (5) CHF (congestive heart failure) Code(s): I50.9 - HEART FAILURE, UNSPECIFIED Qualifiers: Heart failure type: combined systolic and diastolic Heart failure chronicity: acute on chronic Qualified Code(s): I50.43 - Acute on chronic combined systolic (congestive) and diastolic (congestive) heart failure (6) ELIE (acute kidney injury) Code(s): N17.9 - ACUTE KIDNEY FAILURE, UNSPECIFIED (7) Dyspnea on exertion Code(s): R06.09 - OTHER FORMS OF DYSPNEA (8) Elevated INR Code(s): R79.1 - ABNORMAL COAGULATION PROFILE (9) HLD (hyperlipidemia) Code(s): E78.5 - HYPERLIPIDEMIA, UNSPECIFIED Qualifiers: Hyperlipidemia type: pure hypercholesterolemia Qualified Code(s): E78.00 - Pure hypercholesterolemia, unspecified; E78.0 - Pure hypercholesterolemia (10) Hypertensive cardiovascular disease Code(s): I11.9 - HYPERTENSIVE HEART DISEASE WITHOUT HEART FAILURE Qualifiers: Heart failure presence: with heart failure Heart failure type: combined systolic and diastolic Heart failure chronicity: acute on chronic Qualified Code(s): I11.0 - Hypertensive heart disease with heart failure; I50.43 - Acute on chronic combined systolic (congestive) and diastolic (congestive) heart failure
[2017-12-18] MEDS ORDERED: ALBUTEROL SO4 0.083% IH SOL 2.5 MG/3 ML VIAL.NEB. NEB PRN (11:56)
[2017-12-18 11:57] LABS: ACANTHOCYTES 0; ANISOCYTOSIS 0; HELMET CELLS 0; HOWELL-JOLLY BODIES 0; MACROCYTOSIS 0; OVALOCYTE 0; PLATELET ESTIMATE NORMAL; ROULEAU 0; SICKELED CELLS 0; TARGET CELLS 0; TEAR DROP CELLS 0; TOXIC GRANULATION 0
--- NOTE | 2017-12-18 12:19 | PN ---
Progress Note, Physician Chief Complaint: Pt sitting in bed in no acute distress. sob improving. cardioversion cancelled today 2/2 wheezing. . Denies any chest pain/palpitation, worsening sob, n/v/d - Current Medication List Current Medications: Active Medications Albuterol Sulfate (Ventolin 0.083% Nebulizer Soln -) 1 amp NEB Q4H PRN PRN Reason: SHORT OF BREATH/WHEEZING Amiodarone HCl (Cordarone -) 200 mg PO BID [facility] Last Admin: 12/18/17 09:42 Dose: 200 mg Apixaban (Eliquis -) 5 mg PO BID [facility] Last Admin: 12/18/17 09:42 Dose: 5 mg Atorvastatin Calcium (Lipitor -) 40 mg PO HS [facility] Last Admin: 12/17/17 21:34 Dose: 40 mg Diltiazem HCl 125 mg/ Sodium (Chloride) 125 mls @ 5 mls/hr IVPB TITR [facility]; Protocol Last Titration: 12/17/17 21:35 Dose: 10 mg/hr, 10 mls/hr Insulin Aspart (Novolog Vial Sliding Scale -) 1 vial SQ ACHS [facility]; Protocol Last Admin: 12/18/17 06:43 Dose: Not Given Levalbuterol HCl (Xopenex) 0.63 mg IH Q8H [facility] Methylprednisolone Sodium Succinate (Solu-Medrol -) 40 mg IVPUSH Q6H-IV [facility] Montelukast Sodium (Singulair -) 10 mg PO HS [facility] Last Admin: 12/17/17 21:34 Dose: 10 mg Tiotropium [place] (Spiriva Respimat) 2 puff IH DAILY [facility] - Objective Vital Signs: Vital Signs Temperature 98 F 12/18/17 05:52 Pulse Rate 116 H 12/18/17 05:52 Respiratory Rate 20 12/18/17 09:00 Blood Pressure 113/78 12/18/17 05:52 O2 Sat by Pulse Oximetry (%) 97 12/18/17 09:00 Constitutional: Yes: Well Nourished, No Distress, Calm Cardiovascular: Yes: Tachycardia, Pulse Irregular Respiratory: Yes: Diminished, On Nasal O2, Rhonchi, SOB, Wheezes. No: Accessory Muscle Use, Tachypnea Gastrointestinal: Yes: WNL, Normal Bowel Sounds, Soft. No: Distention, Tenderness Genitourinary: Yes: WNL Edema: Yes Edema: LLE: 1+, RLE: 1+ Neurological: Yes: WNL, Alert, Oriented Psychiatric: Yes: WNL, Alert, Oriented Labs: CBC, BMP 12/18/17 05:30 12/18/17 05:30 INR, PTT INR 1.39 (0.83-1.09) H 12/15/17 22:47 Assessment/Plan (1) Asthma exacerbation Assessment/Plan: lung exam w/ rhonchi/wheezes- slowly improving iv steroids increased nebs/ih pulm following Code(s): J45.901 - UNSPECIFIED ASTHMA WITH (ACUTE) EXACERBATION Qualifiers: Asthma severity: moderate Asthma persistence: persistent Qualified Code(s ): J45.41 - Moderate persistent asthma with (acute) exacerbation (2) Atrial flutter with rapid ventricular response Assessment/Plan: uncontrolled continue eliquis cardizem drip, amiodarone cardiology following plan for cardioversion pending pulm clearance Code(s): I48.92 - UNSPECIFIED ATRIAL FLUTTER (3) CHF (congestive heart failure) Assessment/Plan: improved transition to po lasix monitor Code(s): I50.9 - HEART FAILURE, UNSPECIFIED Qualifiers: Heart failure type: combined systolic and diastolic Heart failure chronicity: acute on chronic Qualified Code(s): I50.43 - Acute on chronic combined systolic (congestive) and diastolic (congestive) heart failure (4) ELIE (acute kidney injury) Assessment/Plan: slowly improving monitor closely Code(s): N17.9 - ACUTE KIDNEY FAILURE, UNSPECIFIED (5) HLD (hyperlipidemia) Assessment/Plan: stable continue statin Code(s): E78.5 - HYPERLIPIDEMIA, UNSPECIFIED Qualifiers: Hyperlipidemia type: pure hypercholesterolemia Qualified Code(s): E78.00 - Pure hypercholesterolemia, unspecified; E78.0 - Pure hypercholesterolemia (6) Elevated WBC count Assessment/Plan: 2/2 steroids Code(s): D72.829 - ELEVATED WHITE BLOOD CELL COUNT, UNSPECIFIED (7) Hyperglycemia Assessment/Plan: 2/2 steroids bgm, insulin sliding scale ordered, while on steroids Code(s): R73.9 - HYPERGLYCEMIA, UNSPECIFIED
[2017-12-18] MEDS: LEVALBUTEROL HCL 0.63 MG/3 ML VIAL.NEB. IH SCH ×2 (13:14→20:19)
[2017-12-18] MEDS: TIOTROPIUM BROMIDE 2.5 MCG (SPIRIVA) RESPIMAT INHALER IH SCH (16:21)
[2017-12-18] MEDS: DILTIAZEM INJECTION 125 MG in SODIUM CHLORIDE 100 ML IVPB SCH (18:35)
[2017-12-18] MEDS: ATORVASTATIN CA 40 MG TABLET (FP) PO SCH (21:42)
[2017-12-18] MEDS: MONTELUKAST NA 10 MG TABLET PO SCH (21:42)
[2017-12-19] MEDS: methylPREDNISolone NA SUCC 40 MG/1 ML VIAL IVPUSH SCH ×4 (02:38→21:16)
[2017-12-19] MEDS: LEVALBUTEROL HCL 0.63 MG/3 ML VIAL.NEB. IH SCH ×4 (04:58→20:30)
[2017-12-19] MEDS: INSULIN SLIDING SCALE (NOVOLOG) 1 VIAL SQ SCH ×4 (06:31→21:16)
[2017-12-19 07:52] LABS: BASO % 0.1 % (0-2.0); HEMATOCRIT 41.3 % (35.4-49); HEMOGLOBIN 12.9 GM/dL (11.7-16.9); LYMPH % 2.9 % (8-40); MCH 28.9 pg (25.7-33.7); MCHC 31.1 g/dl (32.0-35.9); MEAN CELL VOLUME 92.8 fl (80-96); MEAN PLT VOLUME 10.1 fl (7.5-11.1); MONO % 4.1 % (3.8-10.2); NEUT % 92.9 % (42.8-82.8); PLATELET COUNT 224 K/MM3 (134-434); RBC 4.45 M/mm3 (4.00-5.60); RDW 13.4 % (11.9-15.9); WHITE BLOOD COUNT 15.2 K/mm3 (4.0-10.0)
[2017-12-19 08:17] LABS: ANION GAP 8 MMOL/L (8-16); BLOOD UREA NITROGEN 34 mg/dL (7-18); CALCIUM 8.9 mg/dL (8.5-10.1); CHLORIDE 98 mmol/L (98-107); CO2 34 mmol/L (21-32); CREATININE 1.5 mg/dL (0.55-1.3); GLUCOSE,RANDOM 272 mg/dL (74-106); MAGNESIUM 2.2 mg/dL (1.8-2.4); POTASSIUM 4.1 mmol/L (3.5-5.1); SODIUM 140 mmol/L (136-145)
--- NOTE | 2017-12-19 09:10 | PN ---
Progress Note, Physician Chief Complaint: Mr Seay says he is doing well. Denies cp, sob, n/v. - Current Medication List Current Medications: Active Medications Albuterol Sulfate (Ventolin 0.083% Nebulizer Soln -) 1 amp NEB Q4H PRN PRN Reason: SHORT OF BREATH/WHEEZING Amiodarone HCl (Cordarone -) 200 mg PO BID [facility] Last Admin: 12/18/17 21:42 Dose: 200 mg Apixaban (Eliquis -) 5 mg PO BID [facility] Last Admin: 12/18/17 21:42 Dose: 5 mg Atorvastatin Calcium (Lipitor -) 40 mg PO HS [facility] Last Admin: 12/18/17 21:42 Dose: 40 mg Furosemide (Lasix -) 40 mg PO DAILY [facility] Diltiazem HCl 125 mg/ Sodium (Chloride) 125 mls @ 5 mls/hr IVPB TITR [facility]; Protocol Last Admin: 12/18/17 18:35 Dose: 10 mg/hr, 10 mls/hr Insulin Aspart (Novolog Vial Sliding Scale -) 1 vial SQ ACHS [facility]; Protocol Last Admin: 12/19/17 06:31 Dose: Not Given Levalbuterol HCl (Xopenex) 0.63 mg IH RTID [facility] Last Admin: 12/19/17 07:38 Dose: Not Given Methylprednisolone Sodium Succinate (Solu-Medrol -) 40 mg IVPUSH Q6H-IV [facility] Last Admin: 12/19/17 02:38 Dose: 40 mg Montelukast Sodium (Singulair -) 10 mg PO HS [facility] Last Admin: 12/18/17 21:42 Dose: 10 mg Tiotropium [place] (Spiriva Respimat) 2 puff IH DAILY [facility] Last Admin: 12/18/17 16:21 Dose: 2 puff - Objective Vital Signs: Vital Signs Temperature 36.6 C 12/19/17 01:00 Pulse Rate 120 H 12/19/17 05:00 Respiratory Rate 20 12/19/17 05:00 Blood Pressure 132/85 12/19/17 05:00 O2 Sat by Pulse Oximetry (%) 97 12/18/17 21:00 Constitutional: Yes: Well Nourished, No Distress, Calm Cardiovascular: Yes: Tachycardia, Pulse Irregular. No: Gallop, Murmur, Rub Respiratory: Yes: Regular, On Nasal O2, Rhonchi, Wheezes. No: CTA Bilaterally, Rales, Tachypnea Gastrointestinal: Yes: Normal Bowel Sounds, Soft. No: Distention, Tenderness Extremities: Yes: WNL Edema: No Labs: CBC, BMP 12/19/17 06:15 12/19/17 06:15 INR, PTT INR 1.39 (0.83-1.09) H 12/15/17 22:47 Assessment/Plan (1) Asthma exacerbation Assessment/Plan: -lung exam slightly improved from yesterday -pulmonary following -continue solumedrol, singulair, and bronchodilators Code(s): J45.901 - UNSPECIFIED ASTHMA WITH (ACUTE) EXACERBATION Qualifiers: Asthma severity: moderate Asthma persistence: persistent Qualified Code(s ): J45.41 - Moderate persistent asthma with (acute) exacerbation (2) Atrial flutter with rapid ventricular response Assessment/Plan: -cardiology following -cardioversion planned -continue eliquis -cardizem drip, amiodarone Code(s): I48.92 - UNSPECIFIED ATRIAL FLUTTER (3) CHF (congestive heart failure) Assessment/Plan: -continue po lasix Code(s): I50.9 - HEART FAILURE, UNSPECIFIED Qualifiers: Heart failure type: combined systolic and diastolic Heart failure chronicity: acute on chronic Qualified Code(s): I50.43 - Acute on chronic combined systolic (congestive) and diastolic (congestive) heart failure (4) ELIE (acute kidney injury) Assessment/Plan: -stable -monitor Code(s): N17.9 - ACUTE KIDNEY FAILURE, UNSPECIFIED (5) HLD (hyperlipidemia) Assessment/Plan: -continue statin Code(s): E78.5 - HYPERLIPIDEMIA, UNSPECIFIED Qualifiers: Hyperlipidemia type: pure hypercholesterolemia Qualified Code(s): E78.00 - Pure hypercholesterolemia, unspecified; E78.0 - Pure hypercholesterolemia (6) Elevated WBC count Assessment/Plan: -secondary to steroids Code(s): D72.829 - ELEVATED WHITE BLOOD CELL COUNT, UNSPECIFIED (7) Hyperglycemia Assessment/Plan: -SSI while on steroids Code(s): R73.9 - HYPERGLYCEMIA, UNSPECIFIED
--- NOTE | 2017-12-19 09:21 | PN ---
Progress Note, Physician Chief Complaint: Events noted Atrial fib/flutter with RVR History of Present Illness: Patient was seen and examined. Awake and alert. Chart was reviewed Denies chest pain, SOB or palpitations - Current Medication List Current Medications: Active Medications Albuterol Sulfate (Ventolin 0.083% Nebulizer Soln -) 1 amp NEB Q4H PRN PRN Reason: SHORT OF BREATH/WHEEZING Amiodarone HCl (Cordarone -) 200 mg PO BID [facility] Last Admin: 12/18/17 21:42 Dose: 200 mg Apixaban (Eliquis -) 5 mg PO BID [facility] Last Admin: 12/18/17 21:42 Dose: 5 mg Atorvastatin Calcium (Lipitor -) 40 mg PO HS [facility] Last Admin: 12/18/17 21:42 Dose: 40 mg Furosemide (Lasix -) 40 mg PO DAILY [facility] Diltiazem HCl 125 mg/ Sodium (Chloride) 125 mls @ 5 mls/hr IVPB TITR [facility]; Protocol Last Admin: 12/18/17 18:35 Dose: 10 mg/hr, 10 mls/hr Insulin Aspart (Novolog Vial Sliding Scale -) 1 vial SQ ACHS [facility]; Protocol Last Admin: 12/19/17 06:31 Dose: Not Given Levalbuterol HCl (Xopenex) 0.63 mg IH RTID [facility] Last Admin: 12/19/17 07:38 Dose: Not Given Methylprednisolone Sodium Succinate (Solu-Medrol -) 40 mg IVPUSH Q6H-IV [facility] Last Admin: 12/19/17 02:38 Dose: 40 mg Montelukast Sodium (Singulair -) 10 mg PO HS [facility] Last Admin: 12/18/17 21:42 Dose: 10 mg Tiotropium [place] (Spiriva Respimat) 2 puff IH DAILY [facility] Last Admin: 12/18/17 16:21 Dose: 2 puff - Objective Vital Signs: Vital Signs Temperature 97.9 F 12/19/17 01:00 Pulse Rate 120 H 12/19/17 05:00 Respiratory Rate 20 12/19/17 05:00 Blood Pressure 132/85 12/19/17 05:00 O2 Sat by Pulse Oximetry (%) 97 12/18/17 21:00 Eyes: Yes: PERRL HENT: Yes: Atraumatic Neck: Yes: Supple Cardiovascular: Yes: Tachycardia, Pulse Irregular, S1, S2 Respiratory: Yes: CTA Bilaterally Gastrointestinal: Yes: Normal Bowel Sounds, Soft. No: Tenderness Edema: No Additional Findings/Remarks: Review of Systems Cardiovascular: denies: chest pain, SOB, palpitations Respiratory: denies: denies: Cough or Sputum Production Gastrointestinal: denies: Nausea, Vomiting, Diarrhea, Constipation or Abdominal Discomfort Musculoskeletal: denies: joint pains Endocrine: No Symptoms Reported Neuro: denies syncope, seizures Labs: CBC, BMP 12/19/17 06:15 12/19/17 06:15 Problem List - Problems (1) Acute exacerbation of CHF (congestive heart failure) Code(s): I50.9 - HEART FAILURE, UNSPECIFIED Qualifiers: Heart failure type: diastolic Qualified Code(s): I50.33 - Acute on chronic diastolic (congestive) heart failure (2) Afib Code(s): I48.91 - UNSPECIFIED ATRIAL FIBRILLATION Qualifiers: Atrial fibrillation type: unspecified Qualified Code(s): I48.91 - Unspecified atrial fibrillation (3) Asthma Code(s): J45.909 - UNSPECIFIED ASTHMA, UNCOMPLICATED (4) Atrial flutter with rapid ventricular response Code(s): I48.92 - UNSPECIFIED ATRIAL FLUTTER (5) Chronic kidney disease Code(s): N18.9 - CHRONIC KIDNEY DISEASE, UNSPECIFIED Qualifiers: Chronic kidney disease stage: stage 2 (mild) Qualified Code(s): N18.2 - Chronic kidney disease, stage 2 (mild) (6) COPD (chronic obstructive pulmonary disease) Code(s): J44.9 - CHRONIC OBSTRUCTIVE PULMONARY DISEASE, UNSPECIFIED (7) HLD (hyperlipidemia) Code(s): E78.5 - HYPERLIPIDEMIA, UNSPECIFIED Qualifiers: Hyperlipidemia type: pure hypercholesterolemia Qualified Code(s): E78.00 - Pure hypercholesterolemia, unspecified; E78.0 - Pure hypercholesterolemia (8) Hypertensive cardiovascular disease Code(s): I11.9 - HYPERTENSIVE HEART DISEASE WITHOUT HEART FAILURE Qualifiers: Heart failure presence: with heart failure Heart failure type: combined systolic and diastolic Heart failure chronicity: acute on chronic Qualified Code(s): I11.0 - Hypertensive heart disease with heart failure; I50.43 - Acute on chronic combined systolic (congestive) and diastolic (congestive) heart failure Assessment/Plan 1. Acute on chronic diastolic heart failure 2. Persistent atrial fibrillation/flutter with RVR recent DCCV on NOAC (Eliquis) 3. Hypertensive cardiovascular disease 4. Reactive airway disease/bronchial asthma/COPD 5. History of Sotalol-associated torsades de pointes 6. Acute on CKD improving PLAN: 1. Continue IV diuresis with monitoring renal function and electrolytes 2. Continue Lopressor 50 BID, Amiodarone 200 BID and Cardizem gtt, Diovan 80 QD and Lipitor 40 QHS 3. Continur Eliquis 5 BID 4. Bronchodilator and pulmonary treatment 5. Referral for RFA of arrhythmia given symptomatic recurrence. This can be done as outpatient. 6. Synchronized cardioversion in Thursday AM. KAREN not needed. Further plans are to follow You Austin MD
[2017-12-19] MEDS: FUROSEMIDE 40 MG TABLET (FP) PO SCH (09:23)
[2017-12-19] MEDS: AMIODARONE HCL 200 MG TABLET (FP) PO SCH ×2 (09:23→21:16)
[2017-12-19] MEDS: APIXABAN 5 MG TABLET PO SCH ×2 (09:23→21:16)
[2017-12-19] MEDS: TIOTROPIUM BROMIDE 2.5 MCG (SPIRIVA) RESPIMAT INHALER IH SCH (09:24)
[2017-12-19] MEDS: DILTIAZEM INJECTION 125 MG in SODIUM CHLORIDE 100 ML IVPB SCH ×3 (09:29→21:11)
[2017-12-19 10:22] LABS: ACANTHOCYTES 1+; ANISOCYTOSIS 1+; MACROCYTOSIS 0; PLATELET ESTIMATE NORMAL; TARGET CELLS 1+; TEAR DROP CELLS 1+
--- NOTE | 2017-12-19 14:11 | PN ---
Progress Note (short form) - Note Progress Note: Breathing feels a little better today. Still on 15mg/hr of Cardizem drip. Intake & Output 12/16/17 12/17/17 12/18/17 12/19/17 23:59 23:59 23:59 23:59 Intake Total 300 491 230 120 Output Total 1000 1650 600 Balance -700 -1159 -370 120 Weight 194 lb 3.2 oz 194 lb 194 lb 9.6 oz 192 lb Last Vital Signs Temp Pulse Resp BP Pulse Ox 98 F 134 H 18 122/84 97 12/19/17 09:00 12/19/17 09:28 12/19/17 09:00 12/19/17 09:28 12/19/17 09:00 Active Medications Albuterol Sulfate (Ventolin 0.083% Nebulizer Soln -) 1 amp NEB Q4H PRN PRN Reason: SHORT OF BREATH/WHEEZING Amiodarone HCl (Cordarone -) 200 mg PO BID [facility] Last Admin: 12/19/17 09:23 Dose: 200 mg Apixaban (Eliquis -) 5 mg PO BID [facility] Last Admin: 12/19/17 09:23 Dose: 5 mg Atorvastatin Calcium (Lipitor -) 40 mg PO HS [facility] Last Admin: 12/18/17 21:42 Dose: 40 mg Furosemide (Lasix -) 40 mg PO DAILY [facility] Last Admin: 12/19/17 09:23 Dose: 40 mg Diltiazem HCl 125 mg/ Sodium (Chloride) 125 mls @ 5 mls/hr IVPB TITR [facility]; Protocol Last Admin: 12/19/17 09:29 Dose: 15 mg/hr, 15 mls/hr Insulin Aspart (Novolog Vial Sliding Scale -) 1 vial SQ ACHS [facility]; Protocol Last Admin: 12/19/17 12:28 Dose: Not Given Levalbuterol HCl (Xopenex) 0.63 mg IH RTID [facility] Last Admin: 12/19/17 07:38 Dose: Not Given Methylprednisolone Sodium Succinate (Solu-Medrol -) 40 mg IVPUSH Q6H-IV [facility] Last Admin: 12/19/17 09:23 Dose: 40 mg Montelukast Sodium (Singulair -) 10 mg PO HS [facility] Last Admin: 12/18/17 21:42 Dose: 10 mg Tiotropium [place] (Spiriva Respimat) 2 puff IH DAILY [facility] Last Admin: 12/19/17 09:24 Dose: 2 puff Constitutional: Yes: NAD Eyes: Yes: WNL HENT: Yes: WNL Neck: Yes: WNL Cardiovascular: Yes: Tachycardia, Pulse Irregular, S1, S2 Respiratory: Yes: Bilateral Wheezes Gastrointestinal: Yes: Normal Bowel Sounds, Soft Edema: Yes Labs: Laboratory Results - last 24 hr 12/18/17 12/18/17 12/19/17 18:32 22:09 06:00 WBC RBC Hgb Hct MCV MCH MCHC RDW Plt Count MPV Absolute Neuts (auto) Neutrophils % Neutrophils % (Manual) Band Neutrophils % Lymphocytes % Lymphocytes % (Manual) Monocytes % Monocytes % (Manual) Eosinophils % Eosinophils % (Manual) Basophils % Basophils % (Manual) Myelocytes % (Man) Promyelocytes % (Man) Blast Cells % (Manual) Nucleated RBC % Metamyelocytes Hypochromia Platelet Estimate Platelet Comment Polychromasia Poikilocytosis Anisocytosis Microcytosis Macrocytosis Target Cells Tear Drop Cells Vitor Cells Acanthocytes (Spur) Sodium Potassium Chloride Carbon Dioxide Anion Gap BUN Creatinine Creat Clearance w eGFR POC Glucometer 337 301 232 Random Glucose Calcium Magnesium 12/19/17 12/19/17 06:15 06:15 WBC 15.2 H RBC 4.45 Hgb 12.9 Hct 41.3 MCV 92.8 MCH 28.9 MCHC 31.1 L RDW 13.4 Plt Count 224 MPV 10.1 Absolute Neuts (auto) 14.1 H Neutrophils % 92.9 H Neutrophils % (Manual) 76.2 Band Neutrophils % 0.0 Lymphocytes % 2.9 L D Lymphocytes % (Manual) 0.0 L Monocytes % 4.1 Monocytes % (Manual) 3 L D Eosinophils % 0.0 Eosinophils % (Manual) 20.8 H D Basophils % 0.1 D Basophils % (Manual) 0.0 Myelocytes % (Man) 0 Promyelocytes % (Man) 0 Blast Cells % (Manual) 0 Nucleated RBC % 0 Metamyelocytes 0 Hypochromia 0 Platelet Estimate Normal Platelet Comment Present Polychromasia 1+ Poikilocytosis 0 Anisocytosis 1+ Microcytosis 1+ Macrocytosis 0 Target Cells 1+ Tear Drop Cells 1+ [place] Cells 1+ Acanthocytes (Spur) 1+ Sodium 140 Potassium 4.1 Chloride 98 Carbon Dioxide 34 H Anion Gap 8 BUN 34 H Creatinine 1.5 H Creat Clearance w eGFR 46.13 POC Glucometer Random Glucose 272 H Calcium 8.9 Magnesium 2.2 Problem List - Problems (1) Acute exacerbation of CHF (congestive heart failure) Code(s): I50.9 - HEART FAILURE, UNSPECIFIED Qualifiers: Heart failure type: diastolic Qualified Code(s): I50.33 - Acute on chronic diastolic (congestive) heart failure (2) Afib Code(s): I48.91 - UNSPECIFIED ATRIAL FIBRILLATION Qualifiers: Atrial fibrillation type: unspecified Qualified Code(s): I48.91 - Unspecified atrial fibrillation (3) Anticoagulant long-term use Code(s): Z79.01 - RETIREMENT (CURRENT) USE OF ANTICOAGULANTS (4) Asthma Code(s): J45.909 - UNSPECIFIED ASTHMA, UNCOMPLICATED (5) CHF (congestive heart failure) Code(s): I50.9 - HEART FAILURE, UNSPECIFIED Qualifiers: Heart failure type: combined systolic and diastolic Heart failure chronicity: acute on chronic Qualified Code(s): I50.43 - Acute on chronic combined systolic (congestive) and diastolic (congestive) heart failure (6) ELIE (acute kidney injury) Code(s): N17.9 - ACUTE KIDNEY FAILURE, UNSPECIFIED (7) Dyspnea on exertion Code(s): R06.09 - OTHER FORMS OF DYSPNEA (8) Elevated INR Code(s): R79.1 - ABNORMAL COAGULATION PROFILE (9) HLD (hyperlipidemia) Code(s): E78.5 - HYPERLIPIDEMIA, UNSPECIFIED Qualifiers: Hyperlipidemia type: pure hypercholesterolemia Qualified Code(s): E78.00 - Pure hypercholesterolemia, unspecified; E78.0 - Pure hypercholesterolemia (10) Hypertensive cardiovascular disease Code(s): I11.9 - HYPERTENSIVE HEART DISEASE WITHOUT HEART FAILURE Qualifiers: Heart failure presence: with heart failure Heart failure type: combined systolic and diastolic Heart failure chronicity: acute on chronic Qualified Code(s): I11.0 - Hypertensive heart disease with heart failure; I50.43 - Acute on chronic combined systolic (congestive) and diastolic (congestive) heart failure Assessment/Plan IMP DYSPNEA ACUTE ON CHRONIC CHF LV DYSFUNCTION RV DYSFUNCTION ASTHMA PAF S/P CARDIOVERSION HTN ELIE PLAN IV LASIX O2 MEDROL INHALED BRONCHODILATORS DAILY WT STRICT I+Os MONITOR SALLY Cason
[2017-12-19] MEDS ORDERED: PT OWN MED DRAWER 7, Y5N ONE (20:52)
[2017-12-19] MEDS: MONTELUKAST NA 10 MG TABLET PO SCH (21:16)
[2017-12-19] MEDS: ATORVASTATIN CA 40 MG TABLET (FP) PO SCH (21:16)
[2017-12-20] MEDS: methylPREDNISolone NA SUCC 40 MG/1 ML VIAL IVPUSH SCH ×4 (02:33→21:54)
[2017-12-20] MEDS: INSULIN SLIDING SCALE (NOVOLOG) 1 VIAL SQ SCH ×4 (06:04→21:54)
[2017-12-20 06:49] LABS: HEMATOCRIT 41.9 % (35.4-49); HEMOGLOBIN 13.2 GM/dL (11.7-16.9); LYMPH % 2.1 % (8-40); MCH 29.1 pg (25.7-33.7); MCHC 31.4 g/dl (32.0-35.9); MEAN CELL VOLUME 92.6 fl (80-96); MEAN PLT VOLUME 10.1 fl (7.5-11.1); MONO % 4.3 % (3.8-10.2); NEUT % 93.6 % (42.8-82.8); PLATELET COUNT 231 K/MM3 (134-434); RBC 4.53 M/mm3 (4.00-5.60); RDW 13.3 % (11.9-15.9); WHITE BLOOD COUNT 14.5 K/mm3 (4.0-10.0)
[2017-12-20] MEDS ORDERED: PT OWN MED DRAWER 7, Y5N ONE ×2 (07:23→14:11)
[2017-12-20 07:44] LABS: ANION GAP 9 MMOL/L (8-16); BLOOD UREA NITROGEN 37 mg/dL (7-18); CALCIUM 8.6 mg/dL (8.5-10.1); CHLORIDE 99 mmol/L (98-107); CO2 33 mmol/L (21-32); CREATININE 1.5 mg/dL (0.55-1.3); GLUCOSE,RANDOM 283 mg/dL (74-106); MAGNESIUM 2.4 mg/dL (1.8-2.4); PHOSPHOROUS 4.2 mg/dL (2.5-4.9); POTASSIUM 4.2 mmol/L (3.5-5.1); SODIUM 140 mmol/L (136-145)
[2017-12-20] MEDS: LEVALBUTEROL HCL 0.63 MG/3 ML VIAL.NEB. IH SCH ×3 (08:06→20:27)
--- NOTE | 2017-12-20 09:27 | PN ---
Progress Note, Physician Chief Complaint: Events noted Atrial fib/flutter with RVR History of Present Illness: Patient was seen and examined. Awake and alert. Chart was reviewed Denies chest pain, SOB or palpitations - Current Medication List Current Medications: Active Medications Albuterol Sulfate (Ventolin 0.083% Nebulizer Soln -) 1 amp NEB Q4H PRN PRN Reason: SHORT OF BREATH/WHEEZING Amiodarone HCl (Cordarone -) 200 mg PO BID [facility] Last Admin: 12/19/17 21:16 Dose: 200 mg Apixaban (Eliquis -) 5 mg PO BID [facility] Last Admin: 12/19/17 21:16 Dose: 5 mg Atorvastatin Calcium (Lipitor -) 40 mg PO HS [facility] Last Admin: 12/19/17 21:16 Dose: 40 mg Furosemide (Lasix -) 40 mg PO DAILY [facility] Last Admin: 12/19/17 09:23 Dose: 40 mg Diltiazem HCl 125 mg/ Sodium (Chloride) 125 mls @ 5 mls/hr IVPB TITR [facility]; Protocol Last Admin: 12/19/17 21:11 Dose: 10 mg/hr, 10 mls/hr Insulin Aspart (Novolog Vial Sliding Scale -) 1 vial SQ ACHS [facility]; Protocol Last Admin: 12/20/17 06:04 Dose: Not Given Levalbuterol HCl (Xopenex) 0.63 mg IH RTID [facility] Last Admin: 12/20/17 08:06 Dose: 0.63 mg Methylprednisolone Sodium Succinate (Solu-Medrol -) 40 mg IVPUSH Q6H-IV [facility] Last Admin: 12/20/17 02:33 Dose: 40 mg Montelukast Sodium (Singulair -) 10 mg PO HS [facility] Last Admin: 12/19/17 21:16 Dose: 10 mg Tiotropium [place] (Spiriva Respimat) 2 puff IH DAILY [facility] Last Admin: 12/19/17 09:24 Dose: 2 puff - Objective Vital Signs: Vital Signs Temperature 98.1 F 12/20/17 06:00 Pulse Rate 125 H 12/20/17 06:00 Respiratory Rate 20 12/20/17 06:00 Blood Pressure 132/81 12/20/17 06:00 O2 Sat by Pulse Oximetry (%) 92 L 12/19/17 21:00 Eyes: Yes: PERRL HENT: Yes: Atraumatic Neck: Yes: Supple Cardiovascular: Yes: Tachycardia, Pulse Irregular, S1, S2 Respiratory: Yes: CTA Bilaterally, Wheezes Gastrointestinal: Yes: Normal Bowel Sounds, Soft. No: Tenderness Edema: No Additional Findings/Remarks: Review of Systems Cardiovascular: denies: chest pain, SOB, palpitations Respiratory: denies: denies: Cough or Sputum Production Gastrointestinal: denies: Nausea, Vomiting, Diarrhea, Constipation or Abdominal Discomfort Musculoskeletal: denies: joint pains Endocrine: No Symptoms Reported Neuro: denies syncope, seizures Labs: CBC, BMP 12/20/17 05:20 12/20/17 05:20 Problem List - Problems (1) Acute exacerbation of CHF (congestive heart failure) Code(s): I50.9 - HEART FAILURE, UNSPECIFIED Qualifiers: Heart failure type: diastolic Qualified Code(s): I50.33 - Acute on chronic diastolic (congestive) heart failure (2) Afib Code(s): I48.91 - UNSPECIFIED ATRIAL FIBRILLATION Qualifiers: Atrial fibrillation type: unspecified Qualified Code(s): I48.91 - Unspecified atrial fibrillation (3) Asthma Code(s): J45.909 - UNSPECIFIED ASTHMA, UNCOMPLICATED (4) Atrial flutter with rapid ventricular response Code(s): I48.92 - UNSPECIFIED ATRIAL FLUTTER (5) Chronic kidney disease Code(s): N18.9 - CHRONIC KIDNEY DISEASE, UNSPECIFIED Qualifiers: Chronic kidney disease stage: stage 2 (mild) Qualified Code(s): N18.2 - Chronic kidney disease, stage 2 (mild) (6) COPD (chronic obstructive pulmonary disease) Code(s): J44.9 - CHRONIC OBSTRUCTIVE PULMONARY DISEASE, UNSPECIFIED (7) HLD (hyperlipidemia) Code(s): E78.5 - HYPERLIPIDEMIA, UNSPECIFIED Qualifiers: Hyperlipidemia type: pure hypercholesterolemia Qualified Code(s): E78.00 - Pure hypercholesterolemia, unspecified; E78.0 - Pure hypercholesterolemia (8) Hypertensive cardiovascular disease Code(s): I11.9 - HYPERTENSIVE HEART DISEASE WITHOUT HEART FAILURE Qualifiers: Heart failure presence: with heart failure Heart failure type: combined systolic and diastolic Heart failure chronicity: acute on chronic Qualified Code(s): I11.0 - Hypertensive heart disease with heart failure; I50.43 - Acute on chronic combined systolic (congestive) and diastolic (congestive) heart failure Assessment/Plan 1. Acute on chronic diastolic heart failure 2. Persistent atrial fibrillation/flutter with RVR recent DCCV on NOAC (Eliquis) 3. Hypertensive cardiovascular disease 4. Reactive airway disease/bronchial asthma/COPD 5. History of Sotalol-associated torsades de pointes 6. Acute on CKD improving PLAN: 1. Continue IV diuresis with monitoring renal function and electrolytes 2. Continue Lopressor 50 BID, Amiodarone 200 BID and Cardizem gtt, Diovan 80 QD and Lipitor 40 QHS 3. Continur Eliquis 5 BID 4. Bronchodilator and pulmonary treatment 5. Referral for RFA of arrhythmia given symptomatic recurrence. This can be done as outpatient. 6. Synchronized cardioversion in AM. KAREN not needed. Keep NPO Further plans are to follow You Austin MD
[2017-12-20] MEDS: FUROSEMIDE 40 MG TABLET (FP) PO SCH (09:39)
[2017-12-20] MEDS: AMIODARONE HCL 200 MG TABLET (FP) PO SCH ×2 (09:39→21:54)
[2017-12-20] MEDS: APIXABAN 5 MG TABLET PO SCH ×2 (09:39→21:54)
[2017-12-20] MEDS: TIOTROPIUM BROMIDE 2.5 MCG (SPIRIVA) RESPIMAT INHALER IH SCH (09:40)
--- NOTE | 2017-12-20 10:09 | PN ---
Progress Note, Physician Chief Complaint: Mr Seay says he is doing well. Denies cp, sob, n/v. Says he has a chronic wheeze at feels he is at baseline. Eager to be cardioverted. - Current Medication List Current Medications: Active Medications Albuterol Sulfate (Ventolin 0.083% Nebulizer Soln -) 1 amp NEB Q4H PRN PRN Reason: SHORT OF BREATH/WHEEZING Amiodarone HCl (Cordarone -) 200 mg PO BID [facility] Last Admin: 12/20/17 09:39 Dose: 200 mg Apixaban (Eliquis -) 5 mg PO BID [facility] Last Admin: 12/20/17 09:39 Dose: 5 mg Atorvastatin Calcium (Lipitor -) 40 mg PO HS [facility] Last Admin: 12/19/17 21:16 Dose: 40 mg Furosemide (Lasix -) 40 mg PO DAILY [facility] Last Admin: 12/20/17 09:39 Dose: 40 mg Diltiazem HCl 125 mg/ Sodium (Chloride) 125 mls @ 5 mls/hr IVPB TITR [facility]; Protocol Last Admin: 12/19/17 21:11 Dose: 10 mg/hr, 10 mls/hr Insulin Aspart (Novolog Vial Sliding Scale -) 1 vial SQ ACHS [facility]; Protocol Last Admin: 12/20/17 06:04 Dose: Not Given Levalbuterol HCl (Xopenex) 0.63 mg IH RTID [facility] Last Admin: 12/20/17 08:06 Dose: 0.63 mg Methylprednisolone Sodium Succinate (Solu-Medrol -) 40 mg IVPUSH Q6H-IV [facility] Last Admin: 12/20/17 09:39 Dose: 40 mg Montelukast Sodium (Singulair -) 10 mg PO HS [facility] Last Admin: 12/19/17 21:16 Dose: 10 mg Tiotropium [place] (Spiriva Respimat) 2 puff IH DAILY [facility] Last Admin: 12/20/17 09:40 Dose: 2 puff - Objective Vital Signs: Vital Signs Temperature 36.6 C 12/20/17 09:33 Pulse Rate 128 H 12/20/17 09:33 Respiratory Rate 18 12/20/17 09:33 Blood Pressure 116/76 12/20/17 09:33 O2 Sat by Pulse Oximetry (%) 92 L 12/19/17 21:00 Constitutional: Yes: Well Nourished, No Distress, Calm Cardiovascular: Yes: Tachycardia, Pulse Irregular. No: Gallop, Murmur, Rub Respiratory: Yes: Regular, On Nasal O2, Wheezes (all lung whelan). No: CTA Bilaterally, Rales, Rhonchi Gastrointestinal: Yes: Normal Bowel Sounds, Soft. No: Distention, Tenderness Extremities: Yes: WNL Edema: No Labs: CBC, BMP 12/20/17 05:20 12/20/17 05:20 INR, PTT INR 1.39 (0.83-1.09) H 12/15/17 22:47 Assessment/Plan (1) Asthma exacerbation Assessment/Plan: -continues to wheeze, however question if this is his baseline -pulmonary following -continue solumedrol, singulair, and bronchodilators -defer to pulmonary when to titrate steroids Code(s): J45.901 - UNSPECIFIED ASTHMA WITH (ACUTE) EXACERBATION Qualifiers: Asthma severity: moderate Asthma persistence: persistent Qualified Code(s ): J45.41 - Moderate persistent asthma with (acute) exacerbation (2) Atrial flutter with rapid ventricular response Assessment/Plan: -cardiology following -cardioversion planned for tomorrow -continue eliquis -cardizem drip, amiodarone Code(s): I48.92 - UNSPECIFIED ATRIAL FLUTTER (3) CHF (congestive heart failure) Assessment/Plan: -continue po lasix Code(s): I50.9 - HEART FAILURE, UNSPECIFIED Qualifiers: Heart failure type: combined systolic and diastolic Heart failure chronicity: acute on chronic Qualified Code(s): I50.43 - Acute on chronic combined systolic (congestive) and diastolic (congestive) heart failure (4) ELIE (acute kidney injury) Assessment/Plan: -stable -monitor Code(s): N17.9 - ACUTE KIDNEY FAILURE, UNSPECIFIED (5) HLD (hyperlipidemia) Assessment/Plan: -continue statin Code(s): E78.5 - HYPERLIPIDEMIA, UNSPECIFIED Qualifiers: Hyperlipidemia type: pure hypercholesterolemia Qualified Code(s): E78.00 - Pure hypercholesterolemia, unspecified; E78.0 - Pure hypercholesterolemia (6) Elevated WBC count Assessment/Plan: -secondary to steroids Code(s): D72.829 - ELEVATED WHITE BLOOD CELL COUNT, UNSPECIFIED (7) Hyperglycemia Assessment/Plan: -patient refusing SSI, encouraged to take Code(s): R73.9 - HYPERGLYCEMIA, UNSPECIFIED
[2017-12-20 10:59] LABS: ANISOCYTOSIS 2+; MACROCYTOSIS 0; PLATELET ESTIMATE NORMAL
--- NOTE | 2017-12-20 13:50 | PN ---
Progress Note (short form) - Note Progress Note: Breathing feels a little better today. Still on 15mg/hr of Cardizem drip. Intake & Output 12/17/17 12/18/17 12/19/17 12/20/17 23:59 23:59 23:59 23:59 Intake Total 491 230 600 520 Output Total 7081 999 9136 1100 Balance -1159 -370 -800 -580 Weight 194 lb 194 lb 9.6 oz 192 lb 192 lb 3.2 oz Last Vital Signs Temp Pulse Resp BP Pulse Ox 98 F 128 H 18 116/76 98 12/20/17 09:33 12/20/17 09:33 12/20/17 09:33 12/20/17 09:33 12/20/17 09:00 Active Medications Albuterol Sulfate (Ventolin 0.083% Nebulizer Soln -) 1 amp NEB Q4H PRN PRN Reason: SHORT OF BREATH/WHEEZING Amiodarone HCl (Cordarone -) 200 mg PO BID [facility] Last Admin: 12/20/17 09:39 Dose: 200 mg Apixaban (Eliquis -) 5 mg PO BID [facility] Last Admin: 12/20/17 09:39 Dose: 5 mg Atorvastatin [place] (Lipitor -) 40 mg PO HS [facility] Last Admin: 12/19/17 21:16 Dose: 40 mg Furosemide (Lasix -) 40 mg PO DAILY [facility] Last Admin: 12/20/17 09:39 Dose: 40 mg Diltiazem HCl 125 mg/ Sodium (Chloride) 125 mls @ 5 mls/hr IVPB TITR [facility]; Protocol Last Admin: 12/19/17 21:11 Dose: 10 mg/hr, 10 mls/hr Insulin Aspart (Novolog Vial Sliding Scale -) 1 vial SQ ACHS [facility]; Protocol Last Admin: 12/20/17 12:06 Dose: Not Given Levalbuterol HCl (Xopenex) 0.63 mg IH RTID [facility] Last Admin: 12/20/17 08:06 Dose: 0.63 mg Methylprednisolone Sodium Succinate (Solu-Medrol -) 40 mg IVPUSH Q6H-IV [facility] Last Admin: 12/20/17 09:39 Dose: 40 mg Montelukast Sodium (Singulair -) 10 mg PO HS [facility] Last Admin: 12/19/17 21:16 Dose: 10 mg Tiotropium [place] (Spiriva Respimat) 2 puff IH DAILY [facility] Last Admin: 12/20/17 09:40 Dose: 2 puff Constitutional: Yes: NAD Eyes: Yes: WNL HENT: Yes: WNL Neck: Yes: WNL Cardiovascular: Yes: Tachycardia, Pulse Irregular, S1, S2 Respiratory: Yes: Bilateral Wheezes Gastrointestinal: Yes: Normal Bowel Sounds, Soft Edema: Yes Labs: Laboratory Results - last 24 hr 12/19/17 12/19/17 12/20/17 16:55 21:10 05:20 WBC 14.5 H RBC 4.53 Hgb 13.2 Hct 41.9 MCV 92.6 MCH 29.1 MCHC 31.4 L RDW 13.3 Plt Count 231 MPV 10.1 Absolute Neuts (auto) 13.6 H Neutrophils % 93.6 H Neutrophils % (Manual) 94.6 H D Band Neutrophils % 0.0 Lymphocytes % 2.1 L D Lymphocytes % (Manual) 1.1 L D Monocytes % 4.3 Monocytes % (Manual) 3 L Eosinophils % 0.0 Eosinophils % (Manual) 0.0 D Basophils % 0.0 Basophils % (Manual) 0.0 Myelocytes % (Man) 0 Promyelocytes % (Man) 0 Blast Cells % (Manual) 0 Nucleated RBC % 0 Metamyelocytes 0 Hypochromia 0 Platelet Estimate Normal Polychromasia 1+ Poikilocytosis 0 Anisocytosis 2+ Microcytosis 2+ Macrocytosis 0 Sodium Potassium Chloride Carbon Dioxide Anion Gap BUN Creatinine Creat Clearance w eGFR POC Glucometer 346 361 Random Glucose Calcium Phosphorus Magnesium 12/20/17 12/20/17 12/20/17 05:20 05:59 12:03 WBC RBC Hgb Hct MCV MCH MCHC RDW Plt Count MPV Absolute Neuts (auto) Neutrophils % Neutrophils % (Manual) Band Neutrophils % Lymphocytes % Lymphocytes % (Manual) Monocytes % Monocytes % (Manual) Eosinophils % Eosinophils % (Manual) Basophils % Basophils % (Manual) Myelocytes % (Man) Promyelocytes % (Man) Blast Cells % (Manual) Nucleated RBC % Metamyelocytes Hypochromia Platelet Estimate Polychromasia Poikilocytosis Anisocytosis Microcytosis Macrocytosis Sodium 140 Potassium 4.2 Chloride 99 Carbon Dioxide 33 H Anion Gap 9 BUN 37 H Creatinine 1.5 H Creat Clearance w eGFR 46.13 POC Glucometer 325 342 Random Glucose 283 H Calcium 8.6 Phosphorus 4.2 Magnesium 2.4 Problem List - Problems (1) Acute exacerbation of CHF (congestive heart failure) Code(s): I50.9 - HEART FAILURE, UNSPECIFIED Qualifiers: Heart failure type: diastolic Qualified Code(s): I50.33 - Acute on chronic diastolic (congestive) heart failure (2) Afib Code(s): I48.91 - UNSPECIFIED ATRIAL FIBRILLATION Qualifiers: Atrial fibrillation type: unspecified Qualified Code(s): I48.91 - Unspecified atrial fibrillation (3) Anticoagulant long-term use Code(s): Z79.01 - [facility] (CURRENT) USE OF ANTICOAGULANTS (4) Asthma Code(s): J45.909 - UNSPECIFIED ASTHMA, UNCOMPLICATED (5) CHF (congestive heart failure) Code(s): I50.9 - HEART FAILURE, UNSPECIFIED Qualifiers: Heart failure type: combined systolic and diastolic Heart failure chronicity: acute on chronic Qualified Code(s): I50.43 - Acute on chronic combined systolic (congestive) and diastolic (congestive) heart failure (6) ELIE (acute kidney injury) Code(s): N17.9 - ACUTE KIDNEY FAILURE, UNSPECIFIED (7) Dyspnea on exertion Code(s): R06.09 - OTHER FORMS OF DYSPNEA (8) Elevated INR Code(s): R79.1 - ABNORMAL COAGULATION PROFILE (9) HLD (hyperlipidemia) Code(s): E78.5 - HYPERLIPIDEMIA, UNSPECIFIED Qualifiers: Hyperlipidemia type: pure hypercholesterolemia Qualified Code(s): E78.00 - Pure hypercholesterolemia, unspecified; E78.0 - Pure hypercholesterolemia (10) Hypertensive cardiovascular disease Code(s): I11.9 - HYPERTENSIVE HEART DISEASE WITHOUT HEART FAILURE Qualifiers: Heart failure presence: with heart failure Heart failure type: combined systolic and diastolic Heart failure chronicity: acute on chronic Qualified Code(s): I11.0 - Hypertensive heart disease with heart failure; I50.43 - Acute on chronic combined systolic (congestive) and diastolic (congestive) heart failure Assessment/Plan IMP DYSPNEA ACUTE ON CHRONIC CHF LV DYSFUNCTION RV DYSFUNCTION ASTHMA PAF S/P CARDIOVERSION HTN ELIE PLAN IV LASIX O2 MEDROL INHALED BRONCHODILATORS DAILY WT STRICT I+Os MONITOR SALLY Cason
[2017-12-20] MEDS: DILTIAZEM INJECTION 125 MG in SODIUM CHLORIDE 100 ML IVPB SCH (21:53)
[2017-12-20] MEDS: ATORVASTATIN CA 40 MG TABLET (FP) PO SCH (21:54)
[2017-12-20] MEDS: MONTELUKAST NA 10 MG TABLET PO SCH (21:54)
[2017-12-21] MEDS: methylPREDNISolone NA SUCC 40 MG/1 ML VIAL IVPUSH SCH ×4 (03:00→21:13)
[2017-12-21] MEDS: INSULIN SLIDING SCALE (NOVOLOG) 1 VIAL SQ SCH ×4 (06:21→21:14)
[2017-12-21 06:47] LABS: BASO % 0.1 % (0-2.0); HEMOGLOBIN 13.3 GM/dL (11.7-16.9); LYMPH % 1.9 % (8-40); MCH 28.7 pg (25.7-33.7); MCHC 30.9 g/dl (32.0-35.9); MEAN CELL VOLUME 92.8 fl (80-96); MEAN PLT VOLUME 10.2 fl (7.5-11.1); PLATELET COUNT 241 K/MM3 (134-434); RBC 4.63 M/mm3 (4.00-5.60); RDW 13.4 % (11.9-15.9); WHITE BLOOD COUNT 15.2 K/mm3 (4.0-10.0)
[2017-12-21 07:12] LABS: ANION GAP 9 MMOL/L (8-16); BLOOD UREA NITROGEN 38 mg/dL (7-18); CALCIUM 8.6 mg/dL (8.5-10.1); CHLORIDE 98 mmol/L (98-107); CO2 33 mmol/L (21-32); CREATININE 1.4 mg/dL (0.55-1.3); MAGNESIUM 2.5 mg/dL (1.8-2.4); PHOSPHOROUS 4.2 mg/dL (2.5-4.9); POTASSIUM 4.2 mmol/L (3.5-5.1); SODIUM 140 mmol/L (136-145)
[2017-12-21] MEDS: LEVALBUTEROL HCL 0.63 MG/3 ML VIAL.NEB. IH SCH ×3 (07:30→20:51)
[2017-12-21 08:04] LABS: GLUCOSE,RANDOM 309 mg/dL (74-106)
--- NOTE | 2017-12-21 09:51 | PN ---
Progress Note, Physician Chief Complaint: Events noted Atrial fib/flutter with RVR History of Present Illness: Patient was seen and examined. Awake and alert. Chart was reviewed Denies chest pain, SOB or palpitations - Current Medication List Current Medications: Active Medications Albuterol Sulfate (Ventolin 0.083% Nebulizer Soln -) 1 amp NEB Q4H PRN PRN Reason: SHORT OF BREATH/WHEEZING Amiodarone HCl (Cordarone -) 200 mg PO BID [facility] Last Admin: 12/20/17 21:54 Dose: 200 mg Apixaban (Eliquis -) 5 mg PO BID [facility] Last Admin: 12/20/17 21:54 Dose: 5 mg Atorvastatin Calcium (Lipitor -) 40 mg PO HS [facility] Last Admin: 12/20/17 21:54 Dose: 40 mg Furosemide (Lasix -) 40 mg PO DAILY [facility] Last Admin: 12/20/17 09:39 Dose: 40 mg Diltiazem HCl 125 mg/ Sodium (Chloride) 125 mls @ 5 mls/hr IVPB TITR [facility]; Protocol Last Admin: 12/20/17 21:53 Dose: Not Given Insulin Aspart (Novolog Vial Sliding Scale -) 1 vial SQ ACHS [facility]; Protocol Last Admin: 12/21/17 06:21 Dose: Not Given Levalbuterol HCl (Xopenex) 0.63 mg IH RTID [facility] Last Admin: 12/21/17 07:30 Dose: 0.63 mg Methylprednisolone Sodium Succinate (Solu-Medrol -) 40 mg IVPUSH Q6H-IV [facility] Last Admin: 12/21/17 03:00 Dose: 40 mg Montelukast Sodium (Singulair -) 10 mg PO HS [facility] Last Admin: 12/20/17 21:54 Dose: 10 mg Tiotropium [place] (Spiriva Respimat) 2 puff IH DAILY [facility] Last Admin: 12/20/17 09:40 Dose: 2 puff - Objective Vital Signs: Vital Signs Temperature 97.8 F 12/21/17 05:00 Pulse Rate 124 H 12/21/17 05:00 Respiratory Rate 20 12/21/17 05:00 Blood Pressure 136/86 12/21/17 05:00 O2 Sat by Pulse Oximetry (%) 94 L 12/20/17 20:36 Eyes: Yes: PERRL HENT: Yes: Atraumatic Neck: Yes: Supple Cardiovascular: Yes: Tachycardia, Pulse Irregular, S1, S2 Respiratory: Yes: CTA Bilaterally Gastrointestinal: Yes: Normal Bowel Sounds, Soft. No: Tenderness Edema: No Additional Findings/Remarks: Review of Systems Cardiovascular: denies: chest pain, SOB, palpitations Respiratory: denies: denies: Cough or Sputum Production Gastrointestinal: denies: Nausea, Vomiting, Diarrhea, Constipation or Abdominal Discomfort Musculoskeletal: denies: joint pains Endocrine: No Symptoms Reported Neuro: denies syncope, seizures Labs: CBC, BMP 12/21/17 05:30 12/21/17 05:30 Problem List - Problems (1) Acute exacerbation of CHF (congestive heart failure) Code(s): I50.9 - HEART FAILURE, UNSPECIFIED Qualifiers: Heart failure type: diastolic Qualified Code(s): I50.33 - Acute on chronic diastolic (congestive) heart failure (2) Afib Code(s): I48.91 - UNSPECIFIED ATRIAL FIBRILLATION Qualifiers: Atrial fibrillation type: unspecified Qualified Code(s): I48.91 - Unspecified atrial fibrillation (3) Asthma Code(s): J45.909 - UNSPECIFIED ASTHMA, UNCOMPLICATED (4) Atrial flutter with rapid ventricular response Code(s): I48.92 - UNSPECIFIED ATRIAL FLUTTER (5) Chronic kidney disease Code(s): N18.9 - CHRONIC KIDNEY DISEASE, UNSPECIFIED Qualifiers: Chronic kidney disease stage: stage 2 (mild) Qualified Code(s): N18.2 - Chronic kidney disease, stage 2 (mild) (6) COPD (chronic obstructive pulmonary disease) Code(s): J44.9 - CHRONIC OBSTRUCTIVE PULMONARY DISEASE, UNSPECIFIED (7) HLD (hyperlipidemia) Code(s): E78.5 - HYPERLIPIDEMIA, UNSPECIFIED Qualifiers: Hyperlipidemia type: pure hypercholesterolemia Qualified Code(s): E78.00 - Pure hypercholesterolemia, unspecified; E78.0 - Pure hypercholesterolemia (8) Hypertensive cardiovascular disease Code(s): I11.9 - HYPERTENSIVE HEART DISEASE WITHOUT HEART FAILURE Qualifiers: Heart failure presence: with heart failure Heart failure type: combined systolic and diastolic Heart failure chronicity: acute on chronic Qualified Code(s): I11.0 - Hypertensive heart disease with heart failure; I50.43 - Acute on chronic combined systolic (congestive) and diastolic (congestive) heart failure Assessment/Plan 1. Acute on chronic diastolic heart failure 2. Persistent atrial fibrillation/flutter with RVR recent DCCV on NOAC (Eliquis) 3. Hypertensive cardiovascular disease 4. Reactive airway disease/bronchial asthma/COPD 5. History of Sotalol-associated torsades de pointes 6. Acute on CKD improving PLAN: 1. Continue PO diuresis with monitoring renal function and electrolytes 2. Continue Lopressor 50 BID, Amiodarone 200 BID and Lipitor 40 QHS 3. Continur Eliquis 5 BID 4. Bronchodilator and pulmonary treatment 5. Referral for RFA of arrhythmia given symptomatic recurrence. This can be done as outpatient. 6. Synchronized cardioversion in today. KAREN not needed. Keep NPO Further plans are to follow. Once in sinus rhythm,discharge planning You Austin MD
[2017-12-21] MEDS ORDERED: PT OWN MED DRAWER 7, Y5N ONE ×2 (09:55→11:07)
[2017-12-21] MEDS: FUROSEMIDE 40 MG TABLET (FP) PO SCH (10:04)
[2017-12-21] MEDS: AMIODARONE HCL 200 MG TABLET (FP) PO SCH ×2 (10:04→21:13)
[2017-12-21] MEDS: APIXABAN 5 MG TABLET PO SCH ×2 (10:04→21:13)
[2017-12-21] MEDS: TIOTROPIUM BROMIDE 2.5 MCG (SPIRIVA) RESPIMAT INHALER IH SCH (10:05)
--- NOTE | 2017-12-21 10:42 | PN ---
Progress Note, Physician History of Present Illness: pulmonary alert,feeling better,dyspnea improving for cardioversion today - Current Medication List Current Medications: Active Medications Albuterol Sulfate (Ventolin 0.083% Nebulizer Soln -) 1 amp NEB Q4H PRN PRN Reason: SHORT OF BREATH/WHEEZING Amiodarone HCl (Cordarone -) 200 mg PO BID [facility] Last Admin: 12/21/17 10:04 Dose: 200 mg Apixaban (Eliquis -) 5 mg PO BID [facility] Last Admin: 12/21/17 10:04 Dose: 5 mg Atorvastatin Calcium (Lipitor -) 40 mg PO HS [facility] Last Admin: 12/20/17 21:54 Dose: 40 mg Furosemide (Lasix -) 40 mg PO DAILY [facility] Last Admin: 12/21/17 10:04 Dose: 40 mg Diltiazem HCl 125 mg/ Sodium (Chloride) 125 mls @ 5 mls/hr IVPB TITR [facility]; Protocol Last Admin: 12/20/17 21:53 Dose: Not Given Insulin Aspart (Novolog Vial Sliding Scale -) 1 vial SQ ACHS [facility]; Protocol Last Admin: 12/21/17 06:21 Dose: Not Given Levalbuterol HCl (Xopenex) 0.63 mg IH RTID [facility] Last Admin: 12/21/17 07:30 Dose: 0.63 mg Methylprednisolone Sodium Succinate (Solu-Medrol -) 40 mg IVPUSH Q6H-IV [facility] Last Admin: 12/21/17 10:04 Dose: 40 mg Montelukast Sodium (Singulair -) 10 mg PO HS [facility] Last Admin: 12/20/17 21:54 Dose: 10 mg Tiotropium [place] (Spiriva Respimat) 2 puff IH DAILY [facility] Last Admin: 12/21/17 10:05 Dose: 2 puff - Objective Vital Signs: Vital Signs Temperature 97.8 F 12/21/17 05:00 Pulse Rate 124 H 12/21/17 05:00 Respiratory Rate 20 12/21/17 05:00 Blood Pressure 136/86 12/21/17 05:00 O2 Sat by Pulse Oximetry (%) 94 L 12/20/17 20:36 Constitutional: Yes: Well Nourished Eyes: Yes: WNL HENT: Yes: WNL Cardiovascular: Yes: WNL, Pulse Irregular, S1, S2 Respiratory: Yes: Wheezes (few wheezes bilaterally) Gastrointestinal: Yes: Normal Bowel Sounds, Soft Extremities: Yes: WNL Edema: Yes Labs: CBC, BMP 12/21/17 05:30 12/21/17 05:30 INR, PTT INR 1.39 (0.83-1.09) H 12/15/17 22:47 Problem List - Problems (1) Acute exacerbation of CHF (congestive heart failure) Code(s): I50.9 - HEART FAILURE, UNSPECIFIED Qualifiers: Heart failure type: diastolic Qualified Code(s): I50.33 - Acute on chronic diastolic (congestive) heart failure (2) Afib Code(s): I48.91 - UNSPECIFIED ATRIAL FIBRILLATION Qualifiers: Atrial fibrillation type: unspecified Qualified Code(s): I48.91 - Unspecified atrial fibrillation (3) Anticoagulant long-term use Code(s): Z79.01 - EXERCISE MANAGER (CURRENT) USE OF ANTICOAGULANTS (4) Asthma Code(s): J45.909 - UNSPECIFIED ASTHMA, UNCOMPLICATED (5) CHF (congestive heart failure) Code(s): I50.9 - HEART FAILURE, UNSPECIFIED Qualifiers: Heart failure type: combined systolic and diastolic Heart failure chronicity: acute on chronic Qualified Code(s): I50.43 - Acute on chronic combined systolic (congestive) and diastolic (congestive) heart failure (6) ELIE (acute kidney injury) Code(s): N17.9 - ACUTE KIDNEY FAILURE, UNSPECIFIED (7) Dyspnea on exertion Code(s): R06.09 - OTHER FORMS OF DYSPNEA (8) Elevated INR Code(s): R79.1 - ABNORMAL COAGULATION PROFILE (9) HLD (hyperlipidemia) Code(s): E78.5 - HYPERLIPIDEMIA, UNSPECIFIED Qualifiers: Hyperlipidemia type: pure hypercholesterolemia Qualified Code(s): E78.00 - Pure hypercholesterolemia, unspecified; E78.0 - Pure hypercholesterolemia (10) Hypertensive cardiovascular disease Code(s): I11.9 - HYPERTENSIVE HEART DISEASE WITHOUT HEART FAILURE Qualifiers: Heart failure presence: with heart failure Heart failure type: combined systolic and diastolic Heart failure chronicity: acute on chronic Qualified Code(s): I11.0 - Hypertensive heart disease with heart failure; I50.43 - Acute on chronic combined systolic (congestive) and diastolic (congestive) heart failure Assessment/Plan IMP DYSPNEA IMPROVING ACUTE ON CHRONIC CHF IMPROVING LV DYSFUNCTION RV DYSFUNCTION ASTHMA PAF S/P CARDIOVERSION HTN ELIE PLAN LASIX O2 MEDROL SAME DOSE INHALED BRONCHODILATORS DAILY WT STRICT I+Os F/U CHEST X-RAYS MONITOR LYTES CARDIOVERSION TODAY DR HERRING Problem List - Problems (1) Acute exacerbation of CHF (congestive heart failure) Code(s): I50.9 - HEART FAILURE, UNSPECIFIED Qualifiers: Heart failure type: diastolic Qualified Code(s): I50.33 - Acute on chronic diastolic (congestive) heart failure (2) Afib Code(s): I48.91 - UNSPECIFIED ATRIAL FIBRILLATION Qualifiers: Atrial fibrillation type: unspecified Qualified Code(s): I48.91 - Unspecified atrial fibrillation (3) Anticoagulant long-term use Code(s): Z79.01 - EXERCISE MANAGER (CURRENT) USE OF ANTICOAGULANTS (4) Asthma Code(s): J45.909 - UNSPECIFIED ASTHMA, UNCOMPLICATED (5) CHF (congestive heart failure) Code(s): I50.9 - HEART FAILURE, UNSPECIFIED Qualifiers: Heart failure type: combined systolic and diastolic Heart failure chronicity: acute on chronic Qualified Code(s): I50.43 - Acute on chronic combined systolic (congestive) and diastolic (congestive) heart failure (6) ELIE (acute kidney injury) Code(s): N17.9 - ACUTE KIDNEY FAILURE, UNSPECIFIED (7) Dyspnea on exertion Code(s): R06.09 - OTHER FORMS OF DYSPNEA (8) Elevated INR Code(s): R79.1 - ABNORMAL COAGULATION PROFILE (9) HLD (hyperlipidemia) Code(s): E78.5 - HYPERLIPIDEMIA, UNSPECIFIED Qualifiers: Hyperlipidemia type: pure hypercholesterolemia Qualified Code(s): E78.00 - Pure hypercholesterolemia, unspecified; E78.0 - Pure hypercholesterolemia (10) Hypertensive cardiovascular disease Code(s): I11.9 - HYPERTENSIVE HEART DISEASE WITHOUT HEART FAILURE Qualifiers: Heart failure presence: with heart failure Heart failure type: combined systolic and diastolic Heart failure chronicity: acute on chronic Qualified Code(s): I11.0 - Hypertensive heart disease with heart failure; I50.43 - Acute on chronic combined systolic (congestive) and diastolic (congestive) heart failure
--- NOTE | 2017-12-21 10:55 | PN ---
Progress Note, Physician Chief Complaint: No c/o chest pain r SOB awaiting cardioverssion - Current Medication List Current Medications: Active Medications Albuterol Sulfate (Ventolin 0.083% Nebulizer Soln -) 1 amp NEB Q4H PRN PRN Reason: SHORT OF BREATH/WHEEZING Amiodarone HCl (Cordarone -) 200 mg PO BID [facility] Last Admin: 12/21/17 10:04 Dose: 200 mg Apixaban (Eliquis -) 5 mg PO BID [facility] Last Admin: 12/21/17 10:04 Dose: 5 mg Atorvastatin Calcium (Lipitor -) 40 mg PO HS [facility] Last Admin: 12/20/17 21:54 Dose: 40 mg Furosemide (Lasix -) 40 mg PO DAILY [facility] Last Admin: 12/21/17 10:04 Dose: 40 mg Diltiazem HCl 125 mg/ Sodium (Chloride) 125 mls @ 5 mls/hr IVPB TITR [facility]; Protocol Last Admin: 12/20/17 21:53 Dose: Not Given Insulin Aspart (Novolog Vial Sliding Scale -) 1 vial SQ ACHS [facility]; Protocol Last Admin: 12/21/17 06:21 Dose: Not Given Levalbuterol HCl (Xopenex) 0.63 mg IH RTID [facility] Last Admin: 12/21/17 07:30 Dose: 0.63 mg Methylprednisolone Sodium Succinate (Solu-Medrol -) 40 mg IVPUSH Q6H-IV [facility] Last Admin: 12/21/17 10:04 Dose: 40 mg Montelukast Sodium (Singulair -) 10 mg PO HS [facility] Last Admin: 12/20/17 21:54 Dose: 10 mg Tiotropium [place] (Spiriva Respimat) 2 puff IH DAILY [facility] Last Admin: 12/21/17 10:05 Dose: 2 puff - Objective Vital Signs: Vital Signs Temperature 97.8 F 12/21/17 09:00 Pulse Rate 125 H 12/21/17 09:00 Respiratory Rate 18 12/21/17 09:00 Blood Pressure 143/99 12/21/17 09:00 O2 Sat by Pulse Oximetry (%) 96 12/21/17 09:00 Elderly man comfortable not in distress HEENT: Mm moist no anemia NECK: No JVd No Bruit CHEST: Minimal wheezes and crepts good AE CVS: s1S2 Irr Tachycardia ABD: No distention non tender Bs= EXT: Trace naveen afeet Labs: CBC, BMP 12/21/17 05:30 12/21/17 05:30 INR, PTT INR 1.39 (0.83-1.09) H 12/15/17 22:47 Problem List - Problems (1) Acute exacerbation of CHF (congestive heart failure) Assessment/Plan: Due to Afib with RVR on Diuretics schedule for rate control Code(s): I50.9 - HEART FAILURE, UNSPECIFIED Qualifiers: Heart failure type: diastolic Qualified Code(s): I50.33 - Acute on chronic diastolic (congestive) heart failure (2) Atrial flutter with rapid ventricular response Assessment/Plan: Poorly controlled rate scheduled for Cardioversion today Code(s): I48.92 - UNSPECIFIED ATRIAL FLUTTER (3) Hyperglycemia Assessment/Plan: Due to steroids will optimize Levimir dose Code(s): R73.9 - HYPERGLYCEMIA, UNSPECIFIED (4) Chronic kidney disease Assessment/Plan: Stage 3 worsening functions due to Diuretics Code(s): N18.9 - CHRONIC KIDNEY DISEASE, UNSPECIFIED Qualifiers: Chronic kidney disease stage: stage 2 (mild) Qualified Code(s): N18.2 - Chronic kidney disease, stage 2 (mild) (5) COPD exacerbation Assessment/Plan: On IV sterods and Nebs treatment improving will F/U Pulmonary input Code(s): J44.1 - CHRONIC OBSTRUCTIVE PULMONARY DISEASE W (ACUTE) EXACERBATION
[2017-12-21 11:55] LABS: ANISOCYTOSIS 2+; MACROCYTOSIS 0; PLATELET ESTIMATE NORMAL
[2017-12-21] MEDS: DILTIAZEM INJECTION 125 MG in SODIUM CHLORIDE 100 ML IVPB SCH (12:05)
[2017-12-21] MEDS: ATORVASTATIN CA 40 MG TABLET (FP) PO SCH (21:13)
[2017-12-21] MEDS: MONTELUKAST NA 10 MG TABLET PO SCH (21:13)
[2017-12-22] MEDS: methylPREDNISolone NA SUCC 40 MG/1 ML VIAL IVPUSH SCH ×2 (03:45→09:19)
[2017-12-22] MEDS: INSULIN SLIDING SCALE (NOVOLOG) 1 VIAL SQ SCH ×4 (06:13→21:45)
[2017-12-22 06:43] LABS: BASO % 0.1 % (0-2.0); HEMATOCRIT 39.4 % (35.4-49); HEMOGLOBIN 12.5 GM/dL (11.7-16.9); LYMPH % 2.5 % (8-40); MCH 29.1 pg (25.7-33.7); MCHC 31.7 g/dl (32.0-35.9); MEAN CELL VOLUME 91.6 fl (80-96); MEAN PLT VOLUME 10.2 fl (7.5-11.1); MONO % 6.3 % (3.8-10.2); NEUT % 91.1 % (42.8-82.8); PLATELET COUNT 211 K/MM3 (134-434); RDW 13.3 % (11.9-15.9); WHITE BLOOD COUNT 12.5 K/mm3 (4.0-10.0)
[2017-12-22 07:54] LABS: ANION GAP 5 MMOL/L (8-16); BLOOD UREA NITROGEN 41 mg/dL (7-18); CALCIUM 8.5 mg/dL (8.5-10.1); CHLORIDE 98 mmol/L (98-107); CO2 34 mmol/L (21-32); CREATININE 1.3 mg/dL (0.55-1.3); POTASSIUM 4.2 mmol/L (3.5-5.1); SODIUM 137 mmol/L (136-145)
[2017-12-22 08:13] LABS: GLUCOSE,RANDOM 314 mg/dL (74-106)
[2017-12-22] MEDS: LEVALBUTEROL HCL 0.63 MG/3 ML VIAL.NEB. IH SCH ×3 (08:21→20:39)
[2017-12-22] MEDS: APIXABAN 5 MG TABLET PO SCH ×2 (09:19→21:41)
[2017-12-22] MEDS: FUROSEMIDE 40 MG TABLET (FP) PO SCH (09:19)
[2017-12-22] MEDS: AMIODARONE HCL 200 MG TABLET (FP) PO SCH ×2 (09:19→21:41)
[2017-12-22] MEDS: TIOTROPIUM BROMIDE 2.5 MCG (SPIRIVA) RESPIMAT INHALER IH SCH (09:21)
--- NOTE | 2017-12-22 11:26 | PN ---
Progress Note, Physician History of Present Illness: PULMONARY ALERT,NO DISTRESS,S/P CARDIOVERSION - Current Medication List Current Medications: Active Medications Albuterol Sulfate (Ventolin 0.083% Nebulizer Soln -) 1 amp NEB Q4H PRN PRN Reason: SHORT OF BREATH/WHEEZING Amiodarone HCl (Cordarone -) 200 mg PO BID [facility] Last Admin: 12/22/17 09:19 Dose: 200 mg Apixaban (Eliquis -) 5 mg PO BID [facility] Last Admin: 12/22/17 09:19 Dose: 5 mg Atorvastatin Calcium (Lipitor -) 40 mg PO HS [facility] Last Admin: 12/21/17 21:13 Dose: 40 mg Furosemide (Lasix -) 40 mg PO DAILY [facility] Last Admin: 12/22/17 09:19 Dose: 40 mg Insulin Aspart (Novolog Vial Sliding Scale -) 1 vial SQ ACHS [facility]; Protocol Last Admin: 12/22/17 06:13 Dose: Not Given Levalbuterol HCl (Xopenex) 0.63 mg IH RTID [facility] Last Admin: 12/22/17 08:21 Dose: 0.63 mg Methylprednisolone Sodium Succinate (Solu-Medrol -) 40 mg IVPUSH Q6H-IV [facility] Last Admin: 12/22/17 09:19 Dose: 40 mg Montelukast Sodium (Singulair -) 10 mg PO HS [facility] Last Admin: 12/21/17 21:13 Dose: 10 mg Tiotropium [place] (Spiriva Respimat) 2 puff IH DAILY [facility] Last Admin: 12/22/17 09:21 Dose: 2 puff - Objective Vital Signs: Vital Signs Temperature 97.5 F L 12/22/17 07:59 Pulse Rate 72 12/22/17 07:59 Respiratory Rate 20 12/22/17 08:02 Blood Pressure 142/81 12/22/17 07:59 O2 Sat by Pulse Oximetry (%) 95 12/22/17 08:02 Constitutional: Yes: Well Nourished, Calm Eyes: Yes: WNL HENT: Yes: WNL Neck: Yes: WNL Cardiovascular: Yes: Regular Rate and Rhythm, S1, S2 Respiratory: Yes: Wheezes (SCATTERED LILIANE WHEEZES) Gastrointestinal: Yes: Normal Bowel Sounds, Soft Extremities: Yes: WNL Edema: Yes Labs: CBC, BMP 12/22/17 05:30 12/22/17 05:30 INR, PTT INR 1.39 (0.83-1.09) H 12/15/17 22:47 Problem List - Problems (1) Acute exacerbation of CHF (congestive heart failure) Code(s): I50.9 - HEART FAILURE, UNSPECIFIED Qualifiers: Heart failure type: diastolic Qualified Code(s): I50.33 - Acute on chronic diastolic (congestive) heart failure (2) Afib Code(s): I48.91 - UNSPECIFIED ATRIAL FIBRILLATION Qualifiers: Atrial fibrillation type: unspecified Qualified Code(s): I48.91 - Unspecified atrial fibrillation (3) Anticoagulant long-term use Code(s): Z79.01 - EMERGING TECHNOLOGIES DIRECTOR (CURRENT) USE OF ANTICOAGULANTS (4) Asthma Code(s): J45.909 - UNSPECIFIED ASTHMA, UNCOMPLICATED (5) CHF (congestive heart failure) Code(s): I50.9 - HEART FAILURE, UNSPECIFIED Qualifiers: Heart failure type: combined systolic and diastolic Heart failure chronicity: acute on chronic Qualified Code(s): I50.43 - Acute on chronic combined systolic (congestive) and diastolic (congestive) heart failure (6) ELIE (acute kidney injury) Code(s): N17.9 - ACUTE KIDNEY FAILURE, UNSPECIFIED (7) Dyspnea on exertion Code(s): R06.09 - OTHER FORMS OF DYSPNEA (8) Elevated INR Code(s): R79.1 - ABNORMAL COAGULATION PROFILE (9) HLD (hyperlipidemia) Code(s): E78.5 - HYPERLIPIDEMIA, UNSPECIFIED Qualifiers: Hyperlipidemia type: pure hypercholesterolemia Qualified Code(s): E78.00 - Pure hypercholesterolemia, unspecified; E78.0 - Pure hypercholesterolemia (10) Hypertensive cardiovascular disease Code(s): I11.9 - HYPERTENSIVE HEART DISEASE WITHOUT HEART FAILURE Qualifiers: Heart failure presence: with heart failure Heart failure type: combined systolic and diastolic Heart failure chronicity: acute on chronic Qualified Code(s): I11.0 - Hypertensive heart disease with heart failure; I50.43 - Acute on chronic combined systolic (congestive) and diastolic (congestive) heart failure Assessment/Plan IMP DYSPNEA IMPROVING ACUTE ON CHRONIC CHF IMPROVING LV DYSFUNCTION RV DYSFUNCTION ASTHMA PAF S/P CARDIOVERSION HTN ELIE PLAN LASIX O2 PREDNISONE WITH TAPER OUTPATIENT INHALED BRONCHODILATORS DAILY WT STRICT I+Os F/U CHEST X-RAYS DR HERRING Problem List - Problems (1) Acute exacerbation of CHF (congestive heart failure) Code(s): I50.9 - HEART FAILURE, UNSPECIFIED Qualifiers: Heart failure type: diastolic Qualified Code(s): I50.33 - Acute on chronic diastolic (congestive) heart failure (2) Afib Code(s): I48.91 - UNSPECIFIED ATRIAL FIBRILLATION Qualifiers: Atrial fibrillation type: unspecified Qualified Code(s): I48.91 - Unspecified atrial fibrillation (3) Anticoagulant long-term use Code(s): Z79.01 - NURSING HOME (CURRENT) USE OF ANTICOAGULANTS (4) Asthma Code(s): J45.909 - UNSPECIFIED ASTHMA, UNCOMPLICATED (5) CHF (congestive heart failure) Code(s): I50.9 - HEART FAILURE, UNSPECIFIED Qualifiers: Heart failure type: combined systolic and diastolic Heart failure chronicity: acute on chronic Qualified Code(s): I50.43 - Acute on chronic combined systolic (congestive) and diastolic (congestive) heart failure (6) ELIE (acute kidney injury) Code(s): N17.9 - ACUTE KIDNEY FAILURE, UNSPECIFIED (7) Dyspnea on exertion Code(s): R06.09 - OTHER FORMS OF DYSPNEA (8) Elevated INR Code(s): R79.1 - ABNORMAL COAGULATION PROFILE (9) HLD (hyperlipidemia) Code(s): E78.5 - HYPERLIPIDEMIA, UNSPECIFIED Qualifiers: Hyperlipidemia type: pure hypercholesterolemia Qualified Code(s): E78.00 - Pure hypercholesterolemia, unspecified; E78.0 - Pure hypercholesterolemia (10) Hypertensive cardiovascular disease Code(s): I11.9 - HYPERTENSIVE HEART DISEASE WITHOUT HEART FAILURE Qualifiers: Heart failure presence: with heart failure Heart failure type: combined systolic and diastolic Heart failure chronicity: acute on chronic Qualified Code(s): I11.0 - Hypertensive heart disease with heart failure; I50.43 - Acute on chronic combined systolic (congestive) and diastolic (congestive) heart failure
--- NOTE | 2017-12-22 11:29 | PN ---
Progress Note (short form) - Note Progress Note: Chief Complaint: Events noted, notes reviewed, denies any chest pain, but dyspnea persists with wheeze, sinus rhythm is maintained post cardioversion History of Present Illness: Patient seen and examined on telemetry. Events noted, notes reviewed, denies any chest pain, but dyspnea persists with wheeze, sinus rhythm is maintained post cardioversion - Current Medication List Current Medications: Active Medications Current Medications Albuterol Sulfate (Ventolin 0.083% Nebulizer Soln -) 1 amp NEB Q4H PRN PRN Reason: SHORT OF BREATH/WHEEZING Amiodarone HCl (Cordarone -) 200 mg PO BID [facility] Last Admin: 12/22/17 09:19 Dose: 200 mg Apixaban (Eliquis -) 5 mg PO BID [facility] Last Admin: 12/22/17 09:19 Dose: 5 mg Atorvastatin Calcium (Lipitor -) 40 mg PO HS [facility] Last Admin: 12/21/17 21:13 Dose: 40 mg Furosemide (Lasix -) 40 mg PO DAILY [facility] Last Admin: 12/22/17 09:19 Dose: 40 mg Insulin Aspart (Novolog Vial Sliding Scale -) 1 vial SQ ACHS [facility]; Protocol Last Admin: 12/22/17 06:13 Dose: Not Given Levalbuterol HCl (Xopenex) 0.63 mg IH RTID [facility] Last Admin: 12/22/17 08:21 Dose: 0.63 mg Montelukast Sodium (Singulair -) 10 mg PO HS [facility] Last Admin: 12/21/17 21:13 Dose: 10 mg Prednisone (Deltasone -) 40 mg PO DAILY [facility] Tiotropium [place] (Spiriva Respimat) 2 puff IH DAILY [facility] Last Admin: 12/22/17 09:21 Dose: 2 puff - Review of Systems Constitutional: denies: Chills, Fever Cardiovascular: As noted above Respiratory: denies: Cough or Sputum Production reports Wheeze Gastrointestinal: denies: Nausea, Vomiting, Diarrhea, Constipation or Abdominal Pain Genitourinary: denies: Dysuria, Hematuria Neurological: denies: Dizziness - Objective Vital Signs: Last Vital Signs Temp Pulse Resp BP Pulse Ox 97.5 F L 72 20 142/81 95 12/22/17 07:59 12/22/17 07:59 12/22/17 08:02 12/22/17 07:59 12/22/17 08:02 Intake & Output 12/19/17 12/20/17 12/21/17 12/22/17 23:59 23:59 23:59 23:59 Intake Total 600 1120 660 130 Output Total 1400 3400 3800 400 Balance -800 -2280 -3140 -270 Weight 192 lb 192 lb 3.2 oz 190 lb Neck: Supple Negative JVD Cardiovascular: S1 S2 Regularly Rate and Rhythm No Murmurs Respiratory: Bilateral Scattered Rhonchi Gastrointestinal: Soft Benign Normal Bowel Sounds Ext: No Edema Labs: CBC, BMP 12/22/17 05:30 12/22/17 05:30 Hepatic Panel Total Bilirubin 0.4 mg/dL (0.2-1) 12/16/17 09:30 AST 25 U/L (15-37) 12/16/17 09:30 ALT 24 U/L (13-61) 12/16/17 09:30 Alkaline Phosphatase 70 U/L (45-117) 12/16/17 09:30 Albumin 3.6 g/dl (3.4-5.0) 12/16/17 09:30 INR, PTT INR 1.39 (0.83-1.09) H 12/15/17 22:47 Assessment/Plan ASSESSMENT: 1. Acute on chronic class I-II NYHA classification LV diastolic heart failure, resolved 2. paroxysmal atrial flutter [id number] score of 3 on DOAC's (Eliquis) 3. Hypertensive cardiovascular disease 4. Hyperglycemia, NIDDM 5. Reactive airway disease/bronchial asthma/COPD 6. History of Sotalol-associated torsades de pointes 7. Acute on CKD resolving PLAN: 1. Continue PO lasix with close monitoring renal function and electrolytes 2. Continue Lopressor 3. Continue Amiodarone 4. Continue Lipitor 5. Continue Eliquis 6. Bronchodilator and steroids as per pulmonary team 7. Outpatient referral for PAflutter/RFA given symptomatic recurrence 8. Can be D/C from the cardiovascular point of view Tressa Escobar MD
[2017-12-22 11:40] LABS: ACANTHOCYTES 0; ANISOCYTOSIS 0; HELMET CELLS 0; HOWELL-JOLLY BODIES 0; MACROCYTOSIS 0; OVALOCYTE 0; PLATELET ESTIMATE NORMAL; ROULEAU 0; SICKELED CELLS 0; TARGET CELLS 0; TEAR DROP CELLS 0; TOXIC GRANULATION 0
--- NOTE | 2017-12-22 15:30 | DS ---
Physical Examination Vital Signs: Vital Signs Temperature 98.4 F 12/22/17 14:55 Pulse Rate 77 12/22/17 14:55 Respiratory Rate 20 12/22/17 14:55 Blood Pressure 146/75 12/22/17 14:55 O2 Sat by Pulse Oximetry (%) 95 12/22/17 08:02 Findings/Remarks: NO sob , NO PALPITATIONS . PE : NAD CV: RRR Lungs: scattered wheezing. Ext : 2+ edema Labs: CBC, BMP 12/22/17 05:30 12/22/17 05:30 Discharge Summary Reason For Visit: DYSPNEA ON EXERTION,ATRIAL FLUTTER,ASTHMA Current Active Problems Acute exacerbation of CHF (congestive heart failure) (Acute) Afib (Acute) Asthma (Acute) Atrial flutter with rapid ventricular response (Acute) CHF (congestive heart failure) (Acute) COPD exacerbation (Acute) Diabetes mellitus (Acute) Elevated WBC count (Acute) Hyperglycemia (Acute) Anticoagulant long-term use (Chronic) Hospital Course: 72 y/o man with h/o HTN, A fib, on AC, and other medical problems who presented with SOB and palpitations and was found to have acute heart failure due to A fib with RVR. echo showed mod reduced EF and dilated L atriuma nd ventricle. he was seen by card , treated medically then had cardioversion yesterday. He converted into sinus rhythm. his sx of heart failure has responded to diuresis and rate control. meds were changed this admission . Bystolic was stopped and he was started o n lopressor. he was also started on amio a a bridge to ablation. He was also diagnosed with acute COPD exacerbation and was treated with steroids. he is discharged on a taper of prednisone. he had no PNA . during hospital stay, his sugar was very elevated and reached high 300s, but he frequently refused to use insulin. A1c was 6.6 in 10/27. no A1c was checked this time. he refused any SSI after dc , and agred to glipizide. he is to check sugar TID AC and follow instructions carefully. he was educated about hypoglycemia sx and plan of act. he is encouraged to see his PCP more often. ( last time 8 months ) dc home time spent 40 min f/u pcp and card Condition: Improved - Instructions Diet, Activity, Other Instructions: You were treated for acute heart failure due to the rapid heart beat. you were also treated for COPD exacerbation - your sugar was extremely high due to the steroids. but in 10/27 you had a blood value that diagnosed diabetes. - use glipizide 5 mg daily foR diabetes. - check your sugar every morning and before each meal. take glipizide daily with breakfast if your sugar is > 150 . if your sugar at any point is > 300 or , [address] Zelaya and notify him - if your sugar is < 100 with symptoms of hypoglycemia or if sugar is < 70 take orange juice and call your doctor . - symptoms of hypoglycemia are: sweating , abdominal discomfort, shakiness, feeling cold... - please follow closely with Dr. zelaya and Dr. Laboy - Please continue amiodarone fro now and take lopressor 25 mg twice a day instead of Bystolic until you follow with Dr. Ragland. - take prednsione as directed per taper : 40 mg daily x 3 days , 30 mg daily x 3 daYS , 20 MG DAILY X 2 DAYS THEN 10 MG DAILY X 2 DAYS THEN STOP - do not stop predisone on your own as this can lead to hypotension and good luck Referrals: Tressa Escobar MD [Staff Physician] - 1 Week Johnny Zelaya MD [Primary Care Provider] - 1 Week Disposition: HOME - Home Medications Comprehensive Discharge Medication List: Ambulatory Orders Budesonide/Formeterol Fumarate [SYMBICORT 160/4.5mcg -] 1 inh PO DAILY 11/04/17 Tiotropium [place] [Spiriva Respimat] 4 gm IH DAILY 11/04/17 Apixaban [Eliquis -] 5 mg PO BID #60 tablet 11/09/17 Atorvastatin Ca [Lipitor] 40 mg PO HS #30 tablet 11/09/17 Furosemide [Lasix -] 40 mg PO DAILY #30 tablet 11/09/17 Montelukast Na [Singulair -] 10 mg PO HS #14 tablet 11/09/17 Valsartan [Diovan] 80 mg PO DAILY #30 tablet 11/09/17 Amiodarone HCl [Cordarone -] 200 mg PO BID #60 tablet 12/22/17 Blood Sugar Diagnostic [Test Strips] 1 each AC #100 strip 12/22/17 Furosemide [Lasix -] 40 mg PO DAILY tablet 11/13/18 Glipizide 5 mg PO DAILY #30 tablet 12/22/17 Metoprolol Tartrate [Lopressor -] 25 mg PO BID #60 tablet 12/22/17 Miscellaneous Medical Supply [Glucometer Device] 1 each SQ AC #1 kit 12/22/17 Prednisone 40 mg PO DAILY #34 tablet 12/22/17 This patient is new to me today: Yes Date on this admission: 12/22/17 Emergency Visit: Yes ED Registration Date: 12/16/17 Care time: The patient presented to the Emergency Department on the above date and was hospitalized for further evaluation of their emergent condition. Critical Care patient: No - Discharge Referral Referred to [facility] Med P.C.: No
[2017-12-22] MEDS ORDERED: Insulin (LOG) Aspart 100 UNITS/ML VIAL SQ ONE (16:01)
--- NOTE | 2017-12-22 16:03 | HOSP ---
Subjective - Review of Symptoms Events since last encounter: sugar > 500 on finger stick. refused insulin - cancel dc - chck BMP - give 14 units of novolog now and recheck - spoke to patient , agreed to insulin - start HS levemir. - follow BMP.for AG Physical Examination Vital Signs: Vital Signs Temperature 98.4 F 12/22/17 14:55 Pulse Rate 77 12/22/17 14:55 Respiratory Rate 20 12/22/17 14:55 Blood Pressure 146/75 12/22/17 14:55 O2 Sat by Pulse Oximetry (%) 95 12/22/17 08:02 Labs: CBC, BMP 12/22/17 05:30 12/22/17 05:30
--- NOTE | 2017-12-22 16:35 | EKG ---
Test Reason : Blood Pressure : / mmHG Vent. Rate : 061 BPM Atrial Rate : 061 BPM P-R Int : 170 ms QRS Dur : 092 ms QT Int : 482 ms P-R-T Axes : 069 083 075 degrees QTc Int : 485 ms NORMAL SINUS RHYTHM POSSIBLE LEFT ATRIAL ENLARGEMENT LEFT VENTRICULAR HYPERTROPHY PROLONGED QT ABNORMAL ECG WHEN COMPARED WITH ECG OF 15-DEC-2017 22:42, sinus rhythm has replaced atrial flutter Confirmed by MD Enrique, Warren ([id number]) on 12/22/2017 4:34:37 PM Referred By: Confirmed By:Warren Nunez MD
[2017-12-22 18:13] LABS: ANION GAP 10 MMOL/L (8-16); BLOOD UREA NITROGEN 46 mg/dL (7-18); CALCIUM 8.6 mg/dL (8.5-10.1); CHLORIDE 94 mmol/L (98-107); CO2 32 mmol/L (21-32); CREATININE 1.6 mg/dL (0.55-1.3); POTASSIUM 4.3 mmol/L (3.5-5.1); SODIUM 136 mmol/L (136-145)
[2017-12-22 18:17] LABS: GLUCOSE,RANDOM 468 mg/dL (74-106)
[2017-12-22] MEDS ORDERED: PT OWN MED DRAWER 7, Y5N ONE (20:25)
[2017-12-22] MEDS ORDERED: INSULIN (NOVOLOG) ASPART 100 UNITS/ML 10ML VIAL ONE (21:26)
[2017-12-22] MEDS: METOPROLOL TARTRATE 25 MG TABLET (FP) PO SCH (21:41)
[2017-12-22] MEDS: ATORVASTATIN CA 40 MG TABLET (FP) PO SCH (21:41)
[2017-12-22] MEDS: MONTELUKAST NA 10 MG TABLET PO SCH (21:41)
[2017-12-22] MEDS ORDERED: INSULIN (LEVEMIR) 100 UNITS/ML UNITS SQ SCH ×2 (22:00)
[2017-12-23] MEDS: INSULIN SLIDING SCALE (NOVOLOG) 1 VIAL SQ SCH ×2 (06:21→11:53)
--- NOTE | 2017-12-23 08:12 | DS ---
Physical Examination Vital Signs: Vital Signs Temperature 36.4 C 12/23/17 05:38 Pulse Rate 53 L 12/23/17 05:38 Respiratory Rate 20 12/23/17 05:38 Blood Pressure 144/75 12/23/17 05:38 O2 Sat by Pulse Oximetry (%) 92 L 12/22/17 22:00 Constitutional: Yes: Well Nourished, No Distress, Calm Cardiovascular: Yes: Regular Rate and Rhythm. No: Gallop, Murmur, Rub Respiratory: Yes: Regular, CTA Bilaterally, Rhonchi (bilateral). No: Rales, Wheezes Gastrointestinal: Yes: Normal Bowel Sounds, Soft. No: Distention, Tenderness Extremities: Yes: WNL Edema: No Labs: CBC, BMP 12/22/17 05:30 12/22/17 16:30 Discharge Summary Reason For Visit: DYSPNEA ON EXERTION,ATRIAL FLUTTER,ASTHMA Current Active Problems Acute exacerbation of CHF (congestive heart failure) (Acute) Afib (Acute) Asthma (Acute) Atrial flutter with rapid ventricular response (Acute) CHF (congestive heart failure) (Acute) COPD exacerbation (Acute) Diabetes mellitus (Acute) Elevated WBC count (Acute) Hyperglycemia (Acute) Anticoagulant long-term use (Chronic) Hospital Course: Please refer to previous discharge summary for hospital course. He was held overnight secondary to his glucose becoming elevated. This was secondary to steroids and his refusal of insulin. He took the insulin and it is now controlled. He is to be discharged on glipizide. He should only need this for a short time as his steroids are being tapered. He was instructed to be on a low glucose diet while taking steroids. He is currently safe for discharge home. Condition: Improved - Instructions Diet, Activity, Other Instructions: You were treated for acute heart failure due to the rapid heart beat. you were also treated for COPD exacerbation - your sugar was extremely high due to the steroids. but in 10/27 you had a blood value that diagnosed diabetes. - use glipizide 5 mg daily foR diabetes. - check your sugar every morning and before each meal. take glipizide daily with breakfast if your sugar is > 150 . if your sugar at any point is > 300 or , [address] Zelaya and notify him - if your sugar is < 100 with symptoms of hypoglycemia or if sugar is < 70 take orange juice and call your doctor . - symptoms of hypoglycemia are: sweating , abdominal discomfort, shakiness, feeling cold... - please follow closely with Dr. zelaya and Dr. Laboy - Please continue amiodarone fro now and take lopressor 25 mg twice a day instead of Bystolic until you follow with Dr. Ragland. - take prednsione as directed per taper : 40 mg daily x 3 days , 30 mg daily x 3 daYS , 20 MG DAILY X 2 DAYS THEN 10 MG DAILY X 2 DAYS THEN STOP - do not stop predisone on your own as this can lead to hypotension and good luck Referrals: Tressa Escobar MD [Staff Physician] - 1 Week Johnny Zelaya MD [Primary Care Provider] - 1 Week Disposition: HOME - Home Medications Comprehensive Discharge Medication List: Ambulatory Orders Budesonide/Formeterol Fumarate [SYMBICORT 160/4.5mcg -] 1 inh PO DAILY 11/04/17 Tiotropium [place] [Spiriva Respimat] 4 gm IH DAILY 11/04/17 Apixaban [Eliquis -] 5 mg PO BID #60 tablet 11/09/17 Atorvastatin Ca [Lipitor] 40 mg PO HS #30 tablet 11/09/17 Furosemide [Lasix -] 40 mg PO DAILY #30 tablet 11/09/17 Montelukast Na [Singulair -] 10 mg PO HS #14 tablet 11/09/17 Valsartan [Diovan] 80 mg PO DAILY #30 tablet 11/09/17 Amiodarone HCl [Cordarone -] 200 mg PO BID #60 tablet 12/22/17 Blood Sugar Diagnostic [Test Strips] 1 each MC AC #100 strip 12/22/17 Furosemide [Lasix -] 40 mg PO DAILY tablet 12/22/17 Glipizide 5 mg PO DAILY #30 tablet 12/22/17 Metoprolol Tartrate [Lopressor -] 25 mg PO BID #60 tablet 12/22/17 Miscellaneous Medical Supply [Glucometer Device] 1 each SQ AC #1 kit 12/22/17 Prednisone 40 mg PO DAILY #34 tablet 12/22/17
[2017-12-23] MEDS: LEVALBUTEROL HCL 0.63 MG/3 ML VIAL.NEB. IH SCH ×2 (08:31→13:58)
--- NOTE | 2017-12-23 09:29 | PN ---
Progress Note, Physician History of Present Illness: Remains in SR post DCCV, reports abd queasiness, denies nausea, emesis, diarrhea , abd pain. - Current Medication List Current Medications: Active Medications Albuterol Sulfate (Ventolin 0.083% Nebulizer Soln -) 1 amp NEB Q4H PRN PRN Reason: SHORT OF BREATH/WHEEZING Amiodarone HCl (Cordarone -) 200 mg PO BID [facility] Last Admin: 12/22/17 21:41 Dose: 200 mg Apixaban (Eliquis -) 5 mg PO BID [facility] Last Admin: 12/22/17 21:41 Dose: 5 mg Atorvastatin Calcium (Lipitor -) 40 mg PO HS [facility] Last Admin: 12/22/17 21:41 Dose: 40 mg Furosemide (Lasix -) 40 mg PO DAILY [facility] Last Admin: 12/22/17 09:19 Dose: 40 mg Insulin Aspart (Novolog Vial Sliding Scale -) 1 vial SQ [facility]; Protocol Last Admin: 12/23/17 06:21 Dose: Not Given Insulin Detemir (Levemir Vial) 7 units SQ [facility] Last Admin: 12/22/17 21:45 Dose: 7 units Levalbuterol HCl (Xopenex) 0.63 mg IH RTID [facility] Last Admin: 12/23/17 08:31 Dose: 0.63 mg Metoprolol Tartrate (Lopressor -) 25 mg PO BID [facility] Last Admin: 12/22/17 21:41 Dose: 25 mg Montelukast Sodium (Singulair -) 10 mg PO HS [facility] Last Admin: 12/22/17 21:41 Dose: 10 mg Prednisone (Deltasone -) 40 mg PO DAILY [facility] Promethazine HCl (Phenergan -) 12.5 mg PO ONCE ONE Stop: 12/23/17 10:01 Tiotropium [place] (Spiriva Respimat) 2 puff IH DAILY [facility] Last Admin: 12/22/17 09:21 Dose: 2 puff - Objective Vital Signs: Vital Signs Temperature 97.6 F 12/23/17 05:38 Pulse Rate 53 L 12/23/17 05:38 Respiratory Rate 20 12/23/17 05:38 Blood Pressure 144/75 12/23/17 05:38 O2 Sat by Pulse Oximetry (%) 92 L 12/22/17 22:00 Constitutional: Yes: No Distress, Calm Neck: Yes: Supple Cardiovascular: Yes: Regular Rate and Rhythm Respiratory: Yes: Regular, CTA Bilaterally Gastrointestinal: Yes: Normal Bowel Sounds, Soft Edema: Yes Edema: LLE: Trace, RLE: Trace Labs: CBC, BMP 12/22/17 05:30 12/22/17 16:30 INR, PTT INR 1.39 (0.83-1.09) H 12/15/17 22:47 - ....Imaging EKG: Report Reviewed (Tele: NSR) Problem List - Problems (1) Anticoagulant long-term use Code(s): Z79.01 - HALFWAY (CURRENT) USE OF ANTICOAGULANTS (2) Acute exacerbation of CHF (congestive heart failure) Code(s): I50.9 - HEART FAILURE, UNSPECIFIED Qualifiers: Heart failure type: diastolic Qualified Code(s): I50.33 - Acute on chronic diastolic (congestive) heart failure (3) Atrial flutter with rapid ventricular response Code(s): I48.92 - UNSPECIFIED ATRIAL FLUTTER (4) Dyspnea on exertion Code(s): R06.09 - OTHER FORMS OF DYSPNEA (5) HLD (hyperlipidemia) Code(s): E78.5 - HYPERLIPIDEMIA, UNSPECIFIED Qualifiers: Hyperlipidemia type: pure hypercholesterolemia Qualified Code(s): E78.00 - Pure hypercholesterolemia, unspecified; E78.0 - Pure hypercholesterolemia (6) Hypertensive cardiovascular disease Code(s): I11.9 - HYPERTENSIVE HEART DISEASE WITHOUT HEART FAILURE Qualifiers: Heart failure presence: with heart failure Heart failure type: combined systolic and diastolic Heart failure chronicity: acute on chronic Qualified Code(s): I11.0 - Hypertensive heart disease with heart failure; I50.43 - Acute on chronic combined systolic (congestive) and diastolic (congestive) heart failure (7) Chronic kidney disease Code(s): N18.9 - CHRONIC KIDNEY DISEASE, UNSPECIFIED Qualifiers: Chronic kidney disease stage: stage 2 (mild) Qualified Code(s): N18.2 - Chronic kidney disease, stage 2 (mild) Assessment/Plan August 14, 2017 cLVH with abnormal septal motion, normal LVEF 65-70%, MAC, mild LAE 4.7 cm, CHAVA, mild MR, mild-mod TR RVSP 32 mmHg April 20, 2014 Nuc stress: No ischemia LVEF 63% A: 1. Acute on chronic class I-II NYHA classification LV diastolic heart failure , resolved 2. paroxysmal atrial flutter [id number] score of 3 on DOAC's (Eliquis) 3. Hypertensive cardiovascular disease 4. Hyperglycemia, NIDDM 5. Reactive airway disease/bronchial asthma/COPD 6. History of Sotalol-associated torsades de pointes 7. Acute on CKD resolving P:1. Continue oral diuresis with monitor diuretic response, renal function and electrolytes 2. Continue Lopressor 25 bid, decrease amio 200 qd (possible medication intolerance) and observe for rhythm control and bronchaspasm, and Lipitor 40 qhs. Resume Valsartan 80 qd as hemodynamics tolerate and renal fxn stable 3. Continur Eliquis 5 bid, patient confirms compliance 4. Minimize use of BD, singulair, O2 as needed, oral steroid taper, outpatient PFTs, 5. Referral for RFA of arrhythmia given symptomatic recurrence as outpatient, may be d/bj from CV-standpoint
[2017-12-23] MEDS ORDERED: predniSONE 20 MG TABLET (UD) PO SCH (10:00)
[2017-12-23] MEDS: TIOTROPIUM BROMIDE 2.5 MCG (SPIRIVA) RESPIMAT INHALER IH SCH (10:00)
[2017-12-23] MEDS: METOPROLOL TARTRATE 25 MG TABLET (FP) PO SCH (10:00)
[2017-12-23] MEDS ORDERED: AMIODARONE HCL 200 MG TABLET (FP) PO SCH (10:00)
[2017-12-23] MEDS ORDERED: PROMETHAZINE HCL 25 MG TABLET PO ONE (10:00)
[2017-12-23] MEDS: APIXABAN 5 MG TABLET PO SCH (10:57)
[2017-12-23] MEDS: FUROSEMIDE 40 MG TABLET (FP) PO SCH (10:57)
[2017-12-23 11:32] VITALS: BP 142/68; PULSE 50; TEMP 98.1
--- NOTE | 2017-12-23 11:45 | PN ---
Progress Note, Physician History of Present Illness: PULMONARY ALERT,COMFORTABLE,-RESP DISTRESS,NOTED TO HAVE BLOOD SUGARS >500 - Current Medication List Current Medications: Active Medications Albuterol Sulfate (Ventolin 0.083% Nebulizer Soln -) 1 amp NEB Q4H PRN PRN Reason: SHORT OF BREATH/WHEEZING Amiodarone HCl (Cordarone -) 200 mg PO DAILY [facility] Last Admin: 12/23/17 10:57 Dose: 200 mg Apixaban (Eliquis -) 5 mg PO BID [facility] Last Admin: 12/23/17 10:57 Dose: 5 mg Atorvastatin Calcium (Lipitor -) 40 mg PO HS [facility] Last Admin: 12/22/17 21:41 Dose: 40 mg Furosemide (Lasix -) 40 mg PO DAILY [facility] Last Admin: 12/23/17 10:57 Dose: 40 mg Insulin Aspart (Novolog Vial Sliding Scale -) 1 vial SQ [facility]; Protocol Last Admin: 12/23/17 06:21 Dose: Not Given Insulin Detemir (Levemir Vial) 7 units SQ [facility] Last Admin: 12/22/17 21:45 Dose: 7 units Levalbuterol HCl (Xopenex) 0.63 mg IH RTID [facility] Last Admin: 12/23/17 08:31 Dose: 0.63 mg Metoprolol Tartrate (Lopressor -) 25 mg PO BID [facility] Last Admin: 12/22/17 21:41 Dose: 25 mg Montelukast Sodium (Singulair -) 10 mg PO HS [facility] Last Admin: 12/22/17 21:41 Dose: 10 mg Prednisone (Deltasone -) 40 mg PO DAILY [facility] Last Admin: 12/23/17 10:57 Dose: 40 mg Tiotropium [place] (Spiriva Respimat) 2 puff IH DAILY [facility] Last Admin: 12/22/17 09:21 Dose: 2 puff - Objective Vital Signs: Vital Signs Temperature 98.1 F 12/23/17 10:00 Pulse Rate 50 L 12/23/17 10:00 Respiratory Rate 20 12/23/17 10:00 Blood Pressure 142/68 12/23/17 10:00 O2 Sat by Pulse Oximetry (%) 96 12/23/17 10:00 Constitutional: Yes: Well Nourished, Calm Eyes: Yes: WNL HENT: Yes: WNL Cardiovascular: Yes: Regular Rate and Rhythm, S1, S2 Respiratory: Yes: Wheezes (SCATTERED LILIANE WHEEZES) Gastrointestinal: Yes: Normal Bowel Sounds, Soft Extremities: Yes: WNL Edema: Yes Problem List - Problems (1) Acute exacerbation of CHF (congestive heart failure) Code(s): I50.9 - HEART FAILURE, UNSPECIFIED Qualifiers: Heart failure type: diastolic Qualified Code(s): I50.33 - Acute on chronic diastolic (congestive) heart failure (2) Afib Code(s): I48.91 - UNSPECIFIED ATRIAL FIBRILLATION Qualifiers: Atrial fibrillation type: unspecified Qualified Code(s): I48.91 - Unspecified atrial fibrillation (3) Anticoagulant long-term use Code(s): Z79.01 - JAZZ MUSICIAN (CURRENT) USE OF ANTICOAGULANTS (4) Asthma Code(s): J45.909 - UNSPECIFIED ASTHMA, UNCOMPLICATED (5) CHF (congestive heart failure) Code(s): I50.9 - HEART FAILURE, UNSPECIFIED Qualifiers: Heart failure type: combined systolic and diastolic Heart failure chronicity: acute on chronic Qualified Code(s): I50.43 - Acute on chronic combined systolic (congestive) and diastolic (congestive) heart failure (6) ELIE (acute kidney injury) Code(s): N17.9 - ACUTE KIDNEY FAILURE, UNSPECIFIED (7) Dyspnea on exertion Code(s): R06.09 - OTHER FORMS OF DYSPNEA (8) Elevated INR Code(s): R79.1 - ABNORMAL COAGULATION PROFILE (9) HLD (hyperlipidemia) Code(s): E78.5 - HYPERLIPIDEMIA, UNSPECIFIED Qualifiers: Hyperlipidemia type: pure hypercholesterolemia Qualified Code(s): E78.00 - Pure hypercholesterolemia, unspecified; E78.0 - Pure hypercholesterolemia (10) Hypertensive cardiovascular disease Code(s): I11.9 - HYPERTENSIVE HEART DISEASE WITHOUT HEART FAILURE Qualifiers: Heart failure presence: with heart failure Heart failure type: combined systolic and diastolic Heart failure chronicity: acute on chronic Qualified Code(s): I11.0 - Hypertensive heart disease with heart failure; I50.43 - Acute on chronic combined systolic (congestive) and diastolic (congestive) heart failure Assessment/Plan IMP DYSPNEA IMPROVING ACUTE ON CHRONIC CHF IMPROVING LV DYSFUNCTION RV DYSFUNCTION ASTHMA PAF S/P CARDIOVERSION HTN ELIE PLAN LASIX O2 PREDNISONE WITH TAPER OUTPATIENT INHALED BRONCHODILATORS DAILY WT STRICT I+Os GLYCEMIC CONTROL DR HERRING Problem List - Problems (1) Acute exacerbation of CHF (congestive heart failure) Code(s): I50.9 - HEART FAILURE, UNSPECIFIED Qualifiers: Heart failure type: diastolic Qualified Code(s): I50.33 - Acute on chronic diastolic (congestive) heart failure (2) Afib Code(s): I48.91 - UNSPECIFIED ATRIAL FIBRILLATION Qualifiers: Atrial fibrillation type: unspecified Qualified Code(s): I48.91 - Unspecified atrial fibrillation (3) Anticoagulant long-term use Code(s): Z79.01 - JAZZ MUSICIAN (CURRENT) USE OF ANTICOAGULANTS (4) Asthma Code(s): J45.909 - UNSPECIFIED ASTHMA, UNCOMPLICATED (5) CHF (congestive heart failure) Code(s): I50.9 - HEART FAILURE, UNSPECIFIED Qualifiers: Heart failure type: combined systolic and diastolic Heart failure chronicity: acute on chronic Qualified Code(s): I50.43 - Acute on chronic combined systolic (congestive) and diastolic (congestive) heart failure (6) ELIE (acute kidney injury) Code(s): N17.9 - ACUTE KIDNEY FAILURE, UNSPECIFIED (7) Dyspnea on exertion Code(s): R06.09 - OTHER FORMS OF DYSPNEA (8) Elevated INR Code(s): R79.1 - ABNORMAL COAGULATION PROFILE (9) HLD (hyperlipidemia) Code(s): E78.5 - HYPERLIPIDEMIA, UNSPECIFIED Qualifiers: Hyperlipidemia type: pure hypercholesterolemia Qualified Code(s): E78.00 - Pure hypercholesterolemia, unspecified; E78.0 - Pure hypercholesterolemia (10) Hypertensive cardiovascular disease Code(s): I11.9 - HYPERTENSIVE HEART DISEASE WITHOUT HEART FAILURE Qualifiers: Heart failure presence: with heart failure Heart failure type: combined systolic and diastolic Heart failure chronicity: acute on chronic Qualified Code(s): I11.0 - Hypertensive heart disease with heart failure; I50.43 - Acute on chronic combined systolic (congestive) and diastolic (congestive) heart failure
[2017-12-23] MEDS ORDERED: PT OWN MED DRAWER 7, Y5N ONE (13:36)
== END 2017-12-23 14:00 | disposition home or self-care (01) | DRG 291 ==
LOC: JER 20:57 → JERBED 12-16 01:28 → J4W 12-16 17:50
PROVIDERS: ADMIT Internal Medicine; ATTEND Internal Medicine
DX: I13.0 Hypertensive heart and chronic kidney disease with heart failure and stage 1 through stage 4 chronic kidney disease, or unspecified chronic kidney disease (principal); I50.33 Acute on chronic diastolic (congestive) heart failure; N17.9 Acute kidney failure, unspecified; J45.41 Moderate persistent asthma with (acute) exacerbation; I48.92 Unspecified atrial flutter; J44.1 Chronic obstructive pulmonary disease with (acute) exacerbation; N18.2 Chronic kidney disease, stage 2 (mild); E78.5 Hyperlipidemia, unspecified; I48.0 Paroxysmal atrial fibrillation; D72.829 Elevated white blood cell count, unspecified; R73.9 Hyperglycemia, unspecified; Z79.01 Long term (current) use of anticoagulants; R79.1 Abnormal coagulation profile
CPT/HCPCS: 36415; 36600; 71045-TC-FY; 71046-TC-FY; 80048; 80053; 81003; 82550; 82553; 82803; 82962; 83735; 83880; 84100; 84484; 85025; 85027; 85610; 87804; 93005; 93010; 93306-TC; 94640; 99285-25

== ENCOUNTER 2020-04-30 17:33 | Inpatient (IN) | payer OTHER ==
[2020-04-30] MEDS ORDERED: DEXAMETHASONE SOD PHOSPHATE 4 MG/1 ML VIAL ONE (18:02)
[2020-04-30] MEDS ORDERED: FUROSEMIDE 40 MG/4 ML INJECTABLE VIAL IVPUSH ONE (18:28)
[2020-04-30] MEDS ORDERED: ALBUTEROL SO4 2.5/IPRATROPIUM 0.5 INH SOL 3 ML VIAL.NEB. NEB ONE (18:28)
[2020-04-30] MEDS ORDERED: methylPREDNISolone NA SUCC 125 MG/2 ML VIAL IVPUSH ONE (18:36)
[2020-04-30] MEDS ORDERED: methylPREDNISolone NA SUCC 125 MG/2 ML VIAL ONE (18:52)
[2020-04-30] MEDS ORDERED: FUROSEMIDE 40 MG/4 ML INJECTABLE VIAL ONE (18:52)
[2020-04-30 18:55] LABS: BASO % 0.3 % (0-2.0); EOS % 1.7 % (0-4.5); HEMATOCRIT 29.9 % (35.4-49); HEMOGLOBIN 9.3 GM/dL (11.7-16.9); LYMPH % 7.3 % (8-40); MEAN CELL VOLUME 83.8 fl (80-96); MEAN PLT VOLUME 9.7 fl (7.5-11.1); MONO % 13.6 % (3.8-10.2); NEUT % 77.1 % (42.8-82.8); PLATELET COUNT 182 K/MM3 (134-434); RBC 3.57 M/mm3 (4.00-5.60); RDW 17.8 % (11.9-15.9); WHITE BLOOD COUNT 18.1 K/mm3 (4.0-10.0)
[2020-04-30 19:02] LABS: INR 2.11 (0.83-1.09)
[2020-04-30 19:05] LABS: ACTIVATED PTT 32.8 SECONDS (25.2-36.5)
[2020-04-30 19:17] LABS: CALCIUM 9.6 mg/dL (8.5-10.1)
[2020-04-30 19:19] LABS: ALBUMIN 2.4 g/dl (3.4-5.0); BLOOD UREA NITROGEN 20.9 mg/dL (7-18)
[2020-04-30 19:22] LABS: CREATININE 1.3 mg/dL (0.55-1.3)
[2020-04-30 19:24] LABS: BILIRUBIN,TOTAL 1.2 mg/dL (0.2-1); TOT PROT 8.3 g/dl (6.4-8.2)
[2020-04-30 19:26] LABS: N-TERMINAL BNP 5225.2 pg/ml (5-125)
[2020-04-30] MEDS ORDERED: PROMETHAZINE HCL 25 MG TABLET PO PRN (21:08)
[2020-04-30] MEDS ORDERED: ATORVASTATIN CA 40 MG TABLET (FP) ONE (22:22)
[2020-04-30] MEDS ORDERED: METOPROLOL TARTRATE 25 MG TABLET (FP) ONE (22:22)
[2020-04-30] MEDS ORDERED: APIXABAN 5 MG TABLET ONE (22:22)
[2020-04-30] MEDS ORDERED: AMIODARONE HCL 200 MG TABLET ONE (22:23)
[2020-04-30] MEDS ORDERED: MONTELUKAST NA 10 MG TABLET ONE (22:23)
[2020-04-30] MEDS: APIXABAN 5 MG TABLET PO SCH (22:29)
[2020-04-30] MEDS: METOPROLOL TARTRATE 25 MG TABLET (FP) PO SCH (22:29)
[2020-04-30] MEDS: AMIODARONE HCL 200 MG TABLET PO SCH (22:29)
[2020-04-30] MEDS: ATORVASTATIN CA 40 MG TABLET (FP) PO SCH (22:29)
[2020-04-30] MEDS: MONTELUKAST NA 10 MG TABLET PO SCH (22:30)
[2020-04-30 23:11] LABS: EPI CELLS 3 /uL (0-25.1); HYALINE CASTS 1 /uL (0-3.1); URINE APPEARANCE CLEAR; URINE BACTERIA 19 /uL (0-1359); URINE BILIRUBIN NEGATIVE (NEGATIVE); URINE COLOR YELLOW; URINE GLUCOSE (UA) NEGATIVE (NEGATIVE); URINE KETONE NEGATIVE (NEGATIVE); URINE LEUK ESTERASE NEGATIVE (NEGATIVE); URINE NITRITE NEGATIVE (NEGATIVE); URINE PROTEIN 1+ (NEGATIVE); URINE RBC 4 /uL (0-23.9); URINE UROBILINOGEN 0.2 mg/dL (0.2-1.0); URINE WBC 5 /uL (0-25.8)
[2020-04-30] MEDS: INSULIN SLIDING SCALE (NOVOLOG) 1 VIAL SQ SCH (23:42)
[2020-05-01 05:58] LABS: HEMATOCRIT 30.4 % (35.4-49); HEMOGLOBIN 9.4 GM/dL (11.7-16.9); MCH 25.8 pg (25.7-33.7); MEAN CELL VOLUME 83.3 fl (80-96); MEAN PLT VOLUME 9.1 fl (7.5-11.1); PLATELET COUNT 147 K/MM3 (134-434); RBC 3.65 M/mm3 (4.00-5.60); RDW 17.9 % (11.9-15.9); WHITE BLOOD COUNT 11.7 K/mm3 (4.0-10.0)
[2020-05-01 06:43] LABS: ALBUMIN 2.2 g/dl (3.4-5.0); BLOOD UREA NITROGEN 27.3 mg/dL (7-18); CALCIUM 9.3 mg/dL (8.5-10.1); CREATININE 1.2 mg/dL (0.55-1.3); MAGNESIUM 2.4 mg/dL (1.8-2.4); TOT PROT 7.3 g/dl (6.4-8.2)
[2020-05-01] MEDS: INSULIN SLIDING SCALE (NOVOLOG) 1 VIAL SQ SCH ×4 (06:56→21:46)
[2020-05-01] MEDS: METOPROLOL TARTRATE 25 MG TABLET (FP) PO SCH ×2 (09:35→21:44)
[2020-05-01] MEDS: AMIODARONE HCL 200 MG TABLET PO SCH (09:35)
[2020-05-01] MEDS: APIXABAN 5 MG TABLET PO SCH ×2 (09:35→21:44)
[2020-05-01] MEDS: FUROSEMIDE 40 MG/4 ML INJECTABLE VIAL IVPUSH SCH (09:37)
[2020-05-01] MEDS ORDERED: TIOTROPIUM BROMIDE 2.5 MCG (SPIRIVA) RESPIMAT INHALER IH SCH (10:00)
[2020-05-01] MEDS ORDERED: VALSARTAN 80 MG TABLET PO SCH (10:00)
[2020-05-01] MEDS ORDERED: BUDESONIDE/FORMETEROL FUMARATE 160/4.5 mcg INHALER IH SCH (10:00)
[2020-05-01] MEDS ORDERED: methylPREDNISolone NA SUCC 40 MG/1 ML VIAL IVPUSH SCH (10:00)
[2020-05-01] MEDS: MONTELUKAST NA 10 MG TABLET PO SCH (21:44)
[2020-05-01] MEDS: ATORVASTATIN CA 40 MG TABLET (FP) PO SCH (21:44)
[2020-05-02] MEDS ORDERED: ONDANSETRON 4 MG/2 ML VIAL IVPUSH ONE (01:30)
[2020-05-02] MEDS: INSULIN SLIDING SCALE (NOVOLOG) 1 VIAL SQ SCH ×4 (06:28→22:11)
[2020-05-02] MEDS ORDERED: POLYETHYLENE GLYCOL 3350 119 GM BTL PO ONE (08:29)
[2020-05-02] MEDS ORDERED: ONDANSETRON 4 MG/2 ML VIAL IVPB PRN (08:29)
[2020-05-02] MEDS: VALSARTAN 80 MG TABLET PO SCH (09:21)
[2020-05-02] MEDS: SPIRONOLACTONE 25 MG TABLET PO SCH (09:21)
[2020-05-02] MEDS: APIXABAN 5 MG TABLET PO SCH (09:22)
[2020-05-02] MEDS: FUROSEMIDE 40 MG/4 ML INJECTABLE VIAL IVPUSH SCH (09:23)
[2020-05-02] MEDS: METOPROLOL TARTRATE 25 MG TABLET (FP) PO SCH ×2 (09:23→22:10)
[2020-05-02 12:24] LABS: HEMATOCRIT 24.7 % (35.4-49); HEMOGLOBIN 7.8 GM/dL (11.7-16.9); MCH 25.9 pg (25.7-33.7); MCHC 31.5 g/dl (32.0-35.9); MEAN CELL VOLUME 82.4 fl (80-96); MEAN PLT VOLUME 9.2 fl (7.5-11.1); PLATELET COUNT 132 K/MM3 (134-434); RBC 2.99 M/mm3 (4.00-5.60); RDW 17.8 % (11.9-15.9); WHITE BLOOD COUNT 24.6 K/mm3 (4.0-10.0)
[2020-05-02 13:06] LABS: CALCIUM 9.3 mg/dL (8.5-10.1)
[2020-05-02 13:07] LABS: ALBUMIN 2.4 g/dl (3.4-5.0); BLOOD UREA NITROGEN 36.7 mg/dL (7-18)
[2020-05-02 13:10] LABS: CREATININE 1.1 mg/dL (0.55-1.3)
[2020-05-02] MEDS: FAMOTIDINE 20 MG TABLET PO SCH (14:04)
[2020-05-02] MEDS ORDERED: FUROSEMIDE 40 MG/4 ML INJECTABLE VIAL IVPUSH ONE (16:53)
[2020-05-02] MEDS: MONTELUKAST NA 10 MG TABLET PO SCH (22:10)
[2020-05-02] MEDS: ATORVASTATIN CA 40 MG TABLET (FP) PO SCH (22:10)
[2020-05-02] MEDS: PANTOPRAZOLE SODIUM 40 MG VIAL IVPUSH SCH (22:11)
[2020-05-03] MEDS: INSULIN SLIDING SCALE (NOVOLOG) 1 VIAL SQ SCH ×4 (06:04→21:48)
[2020-05-03 07:47] LABS: HEMATOCRIT 25.8 % (35.4-49); HEMOGLOBIN 8.2 GM/dL (11.7-16.9); MCHC 31.8 g/dl (32.0-35.9); MEAN CELL VOLUME 81.7 fl (80-96); MEAN PLT VOLUME 9.9 fl (7.5-11.1); PLATELET COUNT 109 K/MM3 (134-434); RBC 3.16 M/mm3 (4.00-5.60); RDW 17.8 % (11.9-15.9); WHITE BLOOD COUNT 23.1 K/mm3 (4.0-10.0)
[2020-05-03 07:52] LABS: ALBUMIN 2.3 g/dl (3.4-5.0); BLOOD UREA NITROGEN 32.2 mg/dL (7-18); CALCIUM 8.9 mg/dL (8.5-10.1)
[2020-05-03 07:56] LABS: CREATININE 1.3 mg/dL (0.55-1.3)
[2020-05-03 07:58] LABS: BILIRUBIN,TOTAL 0.9 mg/dL (0.2-1); TOT PROT 6.7 g/dl (6.4-8.2)
[2020-05-03] MEDS: VALSARTAN 80 MG TABLET PO SCH (09:55)
[2020-05-03] MEDS: FUROSEMIDE 40 MG/4 ML INJECTABLE VIAL IVPUSH SCH (09:56)
[2020-05-03] MEDS: METOPROLOL TARTRATE 25 MG TABLET (FP) PO SCH ×2 (09:56→21:48)
[2020-05-03] MEDS: SPIRONOLACTONE 25 MG TABLET PO SCH (09:56)
[2020-05-03] MEDS: FAMOTIDINE 20 MG TABLET PO SCH (09:56)
[2020-05-03] MEDS: PANTOPRAZOLE SODIUM 40 MG VIAL IVPUSH SCH ×2 (09:57→21:48)
[2020-05-03] MEDS: POLYETHYLENE GLYCOL 3350 119 GM BTL PO SCH (10:07)
[2020-05-03] MEDS ORDERED: LIDOCAINE VISCOUS 2% ORAL/TOP 20 ML UNIT-DOSE CUP ONE (13:51)
[2020-05-03] MEDS ORDERED: LIDOCAINE VISCOUS 2% ORAL/TOP 20 ML UNIT-DOSE CUP MM ONE (15:04)
[2020-05-03] MEDS ORDERED: VANCOMYCIN 1 GM in D5W (PRE-DOCKED) 1,000 MG/250 ML IVPB SCH (18:15)
[2020-05-03] MEDS: CEFTRIAXONE 2 GM in DEXTROSE 5%-WATER 2 GM/100 ML BAG IVPB SCH (19:00)
[2020-05-03] MEDS ORDERED: DEXTROSE 5%-WATER 100 ML IVPB ONE (19:21)
[2020-05-03] MEDS: MONTELUKAST NA 10 MG TABLET PO SCH (21:48)
[2020-05-03] MEDS: ATORVASTATIN CA 40 MG TABLET (FP) PO SCH (21:48)
[2020-05-04] MEDS: INSULIN SLIDING SCALE (NOVOLOG) 1 VIAL SQ SCH ×4 (06:30→21:01)
[2020-05-04 08:02] LABS: HEMATOCRIT 23.4 % (35.4-49); HEMOGLOBIN 7.5 GM/dL (11.7-16.9); MCHC 31.9 g/dl (32.0-35.9); MEAN CELL VOLUME 81.3 fl (80-96); MEAN PLT VOLUME 9.7 fl (7.5-11.1); PLATELET COUNT 107 K/MM3 (134-434); RBC 2.87 M/mm3 (4.00-5.60); RDW 17.6 % (11.9-15.9); WHITE BLOOD COUNT 20.7 K/mm3 (4.0-10.0)
[2020-05-04 08:25] LABS: CALCIUM 8.6 mg/dL (8.5-10.1)
[2020-05-04 08:26] LABS: BLOOD UREA NITROGEN 28.3 mg/dL (7-18)
[2020-05-04 08:29] LABS: CREATININE 1.2 mg/dL (0.55-1.3)
[2020-05-04] MEDS ORDERED: DEXTROSE 5%-WATER 100 ML IVPB ONE (08:54)
[2020-05-04] MEDS: PANTOPRAZOLE SODIUM 40 MG VIAL IVPUSH SCH ×2 (10:23→21:01)
[2020-05-04] MEDS: HEPARIN NA (PORCINE) 5,000 UNITS/ML 1ML VIAL SQ SCH ×2 (10:24→21:01)
[2020-05-04] MEDS: CEFTRIAXONE 2 GM in DEXTROSE 5%-WATER 2 GM/100 ML BAG IVPB SCH (10:24)
[2020-05-04] MEDS: VALSARTAN 80 MG TABLET PO SCH (10:25)
[2020-05-04] MEDS: FAMOTIDINE 20 MG TABLET PO SCH (10:26)
[2020-05-04] MEDS: SPIRONOLACTONE 25 MG TABLET PO SCH (10:26)
[2020-05-04] MEDS: METOPROLOL TARTRATE 25 MG TABLET (FP) PO SCH ×2 (10:26→21:01)
[2020-05-04] MEDS: FUROSEMIDE 40 MG/4 ML INJECTABLE VIAL IVPUSH SCH (10:26)
[2020-05-04] MEDS: POLYETHYLENE GLYCOL 3350 119 GM BTL PO SCH (11:09)
[2020-05-04] MEDS ORDERED: INSULIN (NOVOLOG) ASPART 100 UNITS/ML 10ML VIAL ONE (12:24)
[2020-05-04] MEDS: VANCOMYCIN/WATER BAGS 1,250 MG/250 ML BAG IVPB SCH (12:29)
[2020-05-04 20:49] LABS: HEMATOCRIT 25.3 % (35.4-49); HEMOGLOBIN 7.7 GM/dL (11.7-16.9); MCH 25.3 pg (25.7-33.7); MCHC 30.4 g/dl (32.0-35.9); MEAN CELL VOLUME 83.3 fl (80-96); MEAN PLT VOLUME 10.8 fl (7.5-11.1); PLATELET COUNT 136 K/MM3 (134-434); RBC 3.04 M/mm3 (4.00-5.60); RDW 17.6 % (11.9-15.9); WHITE BLOOD COUNT 23.2 K/mm3 (4.0-10.0)
[2020-05-04] MEDS: ATORVASTATIN CA 40 MG TABLET (FP) PO SCH (21:01)
[2020-05-04] MEDS: MONTELUKAST NA 10 MG TABLET PO SCH (21:01)
[2020-05-05] MEDS: INSULIN SLIDING SCALE (NOVOLOG) 1 VIAL SQ SCH ×4 (06:35→22:32)
[2020-05-05 08:11] LABS: HEMATOCRIT 21.6 % (35.4-49); MCH 26.3 pg (25.7-33.7); MCHC 32.3 g/dl (32.0-35.9); MEAN CELL VOLUME 81.4 fl (80-96); MEAN PLT VOLUME 9.1 fl (7.5-11.1); PLATELET COUNT 126 K/MM3 (134-434); RBC 2.65 M/mm3 (4.00-5.60); RDW 17.7 % (11.9-15.9); WHITE BLOOD COUNT 20.9 K/mm3 (4.0-10.0)
[2020-05-05 08:43] LABS: CALCIUM 8.6 mg/dL (8.5-10.1)
[2020-05-05 08:44] LABS: ALBUMIN 1.8 g/dl (3.4-5.0); BLOOD UREA NITROGEN 44.6 mg/dL (7-18)
[2020-05-05 08:47] LABS: CREATININE 1.8 mg/dL (0.55-1.3)
[2020-05-05 08:48] LABS: BILIRUBIN,TOTAL 0.8 mg/dL (0.2-1); TOT PROT 5.7 g/dl (6.4-8.2)
[2020-05-05] MEDS ORDERED: DEXTROSE 5%-WATER 100 ML IVPB ONE (09:33)
[2020-05-05] MEDS: PANTOPRAZOLE SODIUM 40 MG VIAL IVPUSH SCH ×2 (09:51→21:22)
[2020-05-05] MEDS: METOPROLOL TARTRATE 25 MG TABLET (FP) PO SCH ×2 (09:51→21:22)
[2020-05-05] MEDS: FAMOTIDINE 20 MG TABLET PO SCH (09:51)
[2020-05-05] MEDS: SPIRONOLACTONE 25 MG TABLET PO SCH (09:52)
[2020-05-05] MEDS: FUROSEMIDE 40 MG/4 ML INJECTABLE VIAL IVPUSH SCH (09:52)
[2020-05-05] MEDS: VALSARTAN 80 MG TABLET PO SCH (09:53)
[2020-05-05] MEDS: POLYETHYLENE GLYCOL 3350 119 GM BTL PO SCH (09:54)
[2020-05-05] MEDS: CEFTRIAXONE 2 GM in DEXTROSE 5%-WATER 2 GM/100 ML BAG IVPB SCH (09:55)
[2020-05-05] MEDS: HEPARIN NA (PORCINE) 5,000 UNITS/ML 1ML VIAL SQ SCH ×2 (09:55→21:22)
[2020-05-05] MEDS ORDERED: PT OWN MED DRAWER 7, Y5N ONE (14:11)
[2020-05-05] MEDS: VANCOMYCIN/WATER BAGS 1,250 MG/250 ML BAG IVPB SCH (14:30)
[2020-05-05 16:12] LABS: HEP B CORE AB, TOT Negative (Negative)
[2020-05-05] MEDS: VANCOMYCIN 1 GM in D5W (PRE-DOCKED) 1,000 MG/250 ML IVPB SCH ×2 (20:36→20:37)
[2020-05-05] MEDS: MONTELUKAST NA 10 MG TABLET PO SCH (21:22)
[2020-05-05] MEDS: ATORVASTATIN CA 40 MG TABLET (FP) PO SCH (21:22)
[2020-05-06] MEDS: INSULIN SLIDING SCALE (NOVOLOG) 1 VIAL SQ SCH ×4 (06:04→21:14)
[2020-05-06 07:47] LABS: CARCINOEMBRYONIC ANTIGEN 41.8 ng/mL (0.0-4.7)
[2020-05-06] MEDS ORDERED: DEXTROSE 5%-WATER 100 ML IVPB ONE (08:55)
[2020-05-06] MEDS: METOPROLOL TARTRATE 25 MG TABLET (FP) PO SCH ×2 (09:09→21:12)
[2020-05-06] MEDS: FAMOTIDINE 20 MG TABLET PO SCH (09:10)
[2020-05-06] MEDS: PANTOPRAZOLE SODIUM 40 MG VIAL IVPUSH SCH ×2 (09:10→21:12)
[2020-05-06] MEDS: HEPARIN NA (PORCINE) 5,000 UNITS/ML 1ML VIAL SQ SCH ×2 (09:10→21:12)
[2020-05-06] MEDS: VALSARTAN 80 MG TABLET PO SCH (09:10)
[2020-05-06] MEDS: CEFTRIAXONE 2 GM in DEXTROSE 5%-WATER 2 GM/100 ML BAG IVPB SCH (09:11)
[2020-05-06] MEDS: POLYETHYLENE GLYCOL 3350 119 GM BTL PO SCH (09:11)
[2020-05-06 12:36] LABS: BASO % 0.2 % (0-2.0); EOS % 0.9 % (0-4.5); HEMATOCRIT 28.5 % (35.4-49); HEMOGLOBIN 9.2 GM/dL (11.7-16.9); LYMPH % 5.6 % (8-40); MCH 26.3 pg (25.7-33.7); MCHC 32.2 g/dl (32.0-35.9); MEAN CELL VOLUME 81.5 fl (80-96); MONO % 15.1 % (3.8-10.2); NEUT % 78.2 % (42.8-82.8); PLATELET COUNT 144 K/MM3 (134-434); RBC 3.49 M/mm3 (4.00-5.60); RDW 16.5 % (11.9-15.9); WHITE BLOOD COUNT 21.4 K/mm3 (4.0-10.0)
[2020-05-06 12:57] LABS: ANISOCYTOSIS 2+; MACROCYTOSIS 0; OVALOCYTE 1+; PLATELET ESTIMATE DECREASED; TARGET CELLS 1+
[2020-05-06 13:01] LABS: CREATININE 1.4 mg/dL (0.55-1.3)
[2020-05-06 13:02] LABS: BILIRUBIN,TOTAL 1.1 mg/dL (0.2-1)
[2020-05-06 13:03] LABS: TOT PROT 6.6 g/dl (6.4-8.2)
[2020-05-06] MEDS: MONTELUKAST NA 10 MG TABLET PO SCH (21:12)
[2020-05-06] MEDS: ATORVASTATIN CA 40 MG TABLET (FP) PO SCH (21:12)
[2020-05-07] MEDS: INSULIN SLIDING SCALE (NOVOLOG) 1 VIAL SQ SCH ×4 (06:14→21:19)
[2020-05-07] MEDS ORDERED: DEXTROSE 5%-WATER 100 ML IVPB ONE (09:10)
[2020-05-07] MEDS: HEPARIN NA (PORCINE) 5,000 UNITS/ML 1ML VIAL SQ SCH (10:24)
[2020-05-07] MEDS: METOPROLOL TARTRATE 25 MG TABLET (FP) PO SCH ×2 (10:24→21:17)
[2020-05-07] MEDS: CEFTRIAXONE 2 GM in DEXTROSE 5%-WATER 2 GM/100 ML BAG IVPB SCH (10:24)
[2020-05-07] MEDS: VALSARTAN 80 MG TABLET PO SCH (10:24)
[2020-05-07] MEDS: FAMOTIDINE 20 MG TABLET PO SCH (10:24)
[2020-05-07] MEDS: POLYETHYLENE GLYCOL 3350 119 GM BTL PO SCH (10:24)
[2020-05-07] MEDS: PANTOPRAZOLE SODIUM 40 MG VIAL IVPUSH SCH ×2 (10:25→21:17)
[2020-05-07 13:01] LABS: HEMATOCRIT 26.3 % (35.4-49); HEMOGLOBIN 8.7 GM/dL (11.7-16.9); MCH 26.8 pg (25.7-33.7); MEAN CELL VOLUME 81.3 fl (80-96); PLATELET COUNT 140 K/MM3 (134-434); RBC 3.23 M/mm3 (4.00-5.60); RDW 16.8 % (11.9-15.9)
[2020-05-07 13:10] LABS: INR 1.22 (0.83-1.09); PROTHROMBIN TIME (PATIENT) 14.9 SEC (9.7-13.0)
[2020-05-07 13:29] LABS: CALCIUM 8.5 mg/dL (8.5-10.1)
[2020-05-07 13:30] LABS: BLOOD UREA NITROGEN 35.8 mg/dL (7-18)
[2020-05-07 13:33] LABS: CREATININE 1.3 mg/dL (0.55-1.3)
[2020-05-07] MEDS ORDERED: INSULIN (NOVOLOG) ASPART 100 UNITS/ML 10ML VIAL ONE (21:02)
[2020-05-07] MEDS: ENOXAPARIN NA (PORCINE) 80 MG/0.8 ML DISP.SYRIN SQ SCH (21:17)
[2020-05-07] MEDS: ATORVASTATIN CA 40 MG TABLET (FP) PO SCH (21:17)
[2020-05-07] MEDS: MONTELUKAST NA 10 MG TABLET PO SCH (21:19)
[2020-05-07] MEDS ORDERED: ENOXAPARIN NA (PORCINE) 80 MG/0.8 ML DISP.SYRIN SQ SCH (22:00)
[2020-05-08] MEDS: INSULIN SLIDING SCALE (NOVOLOG) 1 VIAL SQ SCH ×4 (06:03→21:19)
[2020-05-08 07:18] LABS: HEMATOCRIT 25.6 % (35.4-49); HEMOGLOBIN 8.4 GM/dL (11.7-16.9); MCH 26.5 pg (25.7-33.7); MCHC 32.7 g/dl (32.0-35.9); MEAN CELL VOLUME 81.1 fl (80-96); MEAN PLT VOLUME 9.4 fl (7.5-11.1); PLATELET COUNT 140 K/MM3 (134-434); RBC 3.16 M/mm3 (4.00-5.60); RDW 16.8 % (11.9-15.9); WHITE BLOOD COUNT 18.2 K/mm3 (4.0-10.0)
[2020-05-08 07:27] LABS: INR 1.15 (0.83-1.09); PROTHROMBIN TIME (PATIENT) 14.1 SEC (9.7-13.0)
[2020-05-08 07:40] LABS: ALBUMIN 1.7 g/dl (3.4-5.0); CALCIUM 8.4 mg/dL (8.5-10.1)
[2020-05-08 07:43] LABS: CREATININE 1.2 mg/dL (0.55-1.3)
[2020-05-08 07:44] LABS: BILIRUBIN,TOTAL 1.3 mg/dL (0.2-1)
[2020-05-08 07:45] LABS: TOT PROT 5.9 g/dl (6.4-8.2)
[2020-05-08] MEDS ORDERED: DEXTROSE 5%-WATER 100 ML IVPB ONE (09:34)
[2020-05-08] MEDS: CEFTRIAXONE 2 GM in DEXTROSE 5%-WATER 2 GM/100 ML BAG IVPB SCH (09:47)
[2020-05-08] MEDS: POLYETHYLENE GLYCOL 3350 119 GM BTL PO SCH (09:48)
[2020-05-08] MEDS: FAMOTIDINE 20 MG TABLET PO SCH (09:48)
[2020-05-08] MEDS: METOPROLOL TARTRATE 25 MG TABLET (FP) PO SCH ×2 (09:48→21:21)
[2020-05-08] MEDS: VALSARTAN 80 MG TABLET PO SCH (09:48)
[2020-05-08] MEDS: ENOXAPARIN NA (PORCINE) 80 MG/0.8 ML DISP.SYRIN SQ SCH (09:48)
[2020-05-08] MEDS: PANTOPRAZOLE SODIUM 40 MG VIAL IVPUSH SCH ×2 (10:35→21:22)
[2020-05-08] MEDS ORDERED: INSULIN (NOVOLOG) ASPART 100 UNITS/ML 10ML VIAL ONE (11:11)
[2020-05-08] MEDS ORDERED: HEPARIN NA (PORCINE) 5,000 UNITS/ML 1ML VIAL IVPUSH PRN (11:33)
[2020-05-08] MEDS ORDERED: HEPARIN - 25,000 UNIT in SODIUM CHLORIDE 495 ML IV SCH (11:45)
[2020-05-08 20:19] LABS: HEMATOCRIT 26.7 % (35.4-49); HEMOGLOBIN 7.8 GM/dL (11.7-16.9); MCHC 29.4 g/dl (32.0-35.9); MEAN CELL VOLUME 81.6 fl (80-96); MEAN PLT VOLUME 10.1 fl (7.5-11.1); PLATELET COUNT 145 K/MM3 (134-434); RBC 3.27 M/mm3 (4.00-5.60); RDW 16.9 % (11.9-15.9); WHITE BLOOD COUNT 21.4 K/mm3 (4.0-10.0)
[2020-05-08] MEDS: MONTELUKAST NA 10 MG TABLET PO SCH (21:21)
[2020-05-08] MEDS: ATORVASTATIN CA 40 MG TABLET (FP) PO SCH (21:22)
[2020-05-09] MEDS: INSULIN SLIDING SCALE (NOVOLOG) 1 VIAL SQ SCH ×4 (06:07→21:52)
[2020-05-09] MEDS ORDERED: PT OWN MED DRAWER 7, Y5N ONE ×2 (09:13→16:21)
[2020-05-09] MEDS ORDERED: DEXTROSE 5%-WATER 100 ML IVPB ONE (09:14)
[2020-05-09] MEDS: VALSARTAN 80 MG TABLET PO SCH (09:34)
[2020-05-09] MEDS: PANTOPRAZOLE SODIUM 40 MG VIAL IVPUSH SCH ×2 (09:34→21:52)
[2020-05-09] MEDS: METOPROLOL TARTRATE 25 MG TABLET (FP) PO SCH ×2 (09:34→21:52)
[2020-05-09] MEDS: FAMOTIDINE 20 MG TABLET PO SCH (09:34)
[2020-05-09] MEDS: CEFTRIAXONE 2 GM in DEXTROSE 5%-WATER 2 GM/100 ML BAG IVPB SCH (09:34)
[2020-05-09] MEDS: POLYETHYLENE GLYCOL 3350 119 GM BTL PO SCH (09:35)
[2020-05-09] MEDS ORDERED: ENOXAPARIN NA (PORCINE) 80 MG/0.8 ML DISP.SYRIN SQ SCH (10:00)
[2020-05-09] MEDS ORDERED: VANCOMYCIN 1 GRAM (PRE-DOCKED) 1,000 MG/250 ML BAG IVPB SCH (10:15)
[2020-05-09 11:23] LABS: HEMATOCRIT 23.1 % (35.4-49); HEMOGLOBIN 7.3 GM/dL (11.7-16.9); MCH 26.2 pg (25.7-33.7); MCHC 31.8 g/dl (32.0-35.9); MEAN CELL VOLUME 82.3 fl (80-96); PLATELET COUNT 185 K/MM3 (134-434); RBC 2.81 M/mm3 (4.00-5.60); RDW 16.8 % (11.9-15.9); WHITE BLOOD COUNT 16.7 K/mm3 (4.0-10.0)
[2020-05-09 11:58] LABS: CALCIUM 8.6 mg/dL (8.5-10.1)
[2020-05-09 11:59] LABS: ALBUMIN 1.7 g/dl (3.4-5.0)
[2020-05-09 12:21] LABS: BLOOD UREA NITROGEN 24.8 mg/dL (7-18)
[2020-05-09 12:23] LABS: CREATININE 1.2 mg/dL (0.55-1.3)
[2020-05-09 12:25] LABS: BILIRUBIN,TOTAL 0.9 mg/dL (0.2-1); TOT PROT 5.8 g/dl (6.4-8.2)
[2020-05-09] MEDS: HEPARIN NA (PORCINE) 5,000 UNITS/ML 1ML VIAL IVPUSH PRN (12:33)
[2020-05-09] MEDS: HEPARIN - 25,000 UNIT in SODIUM CHLORIDE 495 ML IV SCH (12:33)
[2020-05-09] MEDS: ATORVASTATIN CA 40 MG TABLET (FP) PO SCH (21:52)
[2020-05-09] MEDS: MONTELUKAST NA 10 MG TABLET PO SCH (21:52)
[2020-05-10] MEDS: INSULIN SLIDING SCALE (NOVOLOG) 1 VIAL SQ SCH ×3 (07:15→17:30)
[2020-05-10 07:51] LABS: HEMATOCRIT 23.4 % (35.4-49); HEMOGLOBIN 7.6 GM/dL (11.7-16.9); MCH 26.9 pg (25.7-33.7); MCHC 32.3 g/dl (32.0-35.9); MEAN CELL VOLUME 83.2 fl (80-96); MEAN PLT VOLUME 9.9 fl (7.5-11.1); PLATELET COUNT 193 K/MM3 (134-434); RBC 2.82 M/mm3 (4.00-5.60); RDW 16.4 % (11.9-15.9); WHITE BLOOD COUNT 17.4 K/mm3 (4.0-10.0)
[2020-05-10 08:24] LABS: CALCIUM 8.5 mg/dL (8.5-10.1)
[2020-05-10 08:25] LABS: ALBUMIN 1.7 g/dl (3.4-5.0); BLOOD UREA NITROGEN 26.8 mg/dL (7-18)
[2020-05-10 08:28] LABS: BILIRUBIN,TOTAL 1.2 mg/dL (0.2-1); CREATININE 1.1 mg/dL (0.55-1.3)
[2020-05-10 08:29] LABS: TOT PROT 5.6 g/dl (6.4-8.2)
[2020-05-10] MEDS ORDERED: DEXTROSE 5%-WATER 100 ML IVPB ONE (09:20)
[2020-05-10] MEDS: CEFTRIAXONE 2 GM in DEXTROSE 5%-WATER 2 GM/100 ML BAG IVPB SCH (10:05)
[2020-05-10] MEDS: POLYETHYLENE GLYCOL 3350 119 GM BTL PO SCH (10:05)
[2020-05-10] MEDS: VALSARTAN 80 MG TABLET PO SCH (10:06)
[2020-05-10] MEDS: METOPROLOL TARTRATE 25 MG TABLET (FP) PO SCH (10:06)
[2020-05-10] MEDS: HEPARIN - 25,000 UNIT in SODIUM CHLORIDE 495 ML IV SCH (10:06)
[2020-05-10] MEDS: PANTOPRAZOLE SODIUM 40 MG VIAL IVPUSH SCH (10:06)
[2020-05-10] MEDS: FAMOTIDINE 20 MG TABLET PO SCH (10:06)
[2020-05-10] MEDS: HEPARIN NA (PORCINE) 5,000 UNITS/ML 1ML VIAL IVPUSH PRN (10:07)
[2020-05-10] MEDS ORDERED: PT OWN MED DRAWER 7, Y5N ONE (10:27)
[2020-05-11] MEDS: MONTELUKAST NA 10 MG TABLET PO SCH ×2 (00:02→22:52)
[2020-05-11] MEDS: METOPROLOL TARTRATE 25 MG TABLET (FP) PO SCH ×3 (00:02→22:52)
[2020-05-11] MEDS: INSULIN SLIDING SCALE (NOVOLOG) 1 VIAL SQ SCH ×5 (00:03→22:52)
[2020-05-11] MEDS: ATORVASTATIN CA 40 MG TABLET (FP) PO SCH ×2 (00:03→22:52)
[2020-05-11] MEDS: PANTOPRAZOLE SODIUM 40 MG VIAL IVPUSH SCH ×3 (00:03→22:52)
[2020-05-11 08:02] LABS: HEMATOCRIT 26.8 % (35.4-49); HEMOGLOBIN 8.7 GM/dL (11.7-16.9); MCH 27.5 pg (25.7-33.7); MCHC 32.7 g/dl (32.0-35.9); MEAN CELL VOLUME 84.3 fl (80-96); MEAN PLT VOLUME 9.5 fl (7.5-11.1); PLATELET COUNT 220 K/MM3 (134-434); RBC 3.18 M/mm3 (4.00-5.60); RDW 16.7 % (11.9-15.9)
[2020-05-11] MEDS: HEPARIN NA (PORCINE) 5,000 UNITS/ML 1ML VIAL IVPUSH PRN (08:09)
[2020-05-11] MEDS: HEPARIN - 25,000 UNIT in SODIUM CHLORIDE 495 ML IV SCH ×2 (08:10→17:03)
[2020-05-11 08:35] LABS: CALCIUM 8.6 mg/dL (8.5-10.1)
[2020-05-11 08:36] LABS: ALBUMIN 1.6 g/dl (3.4-5.0)
[2020-05-11 08:39] LABS: CREATININE 1.1 mg/dL (0.55-1.3)
[2020-05-11 08:40] LABS: BILIRUBIN,TOTAL 1.5 mg/dL (0.2-1)
[2020-05-11 08:41] LABS: TOT PROT 5.6 g/dl (6.4-8.2)
[2020-05-11] MEDS ORDERED: DEXTROSE 5%-WATER 100 ML IVPB ONE (09:25)
[2020-05-11] MEDS: FAMOTIDINE 20 MG TABLET PO SCH (09:57)
[2020-05-11] MEDS: VALSARTAN 80 MG TABLET PO SCH (09:57)
[2020-05-11] MEDS: CEFTRIAXONE 2 GM in DEXTROSE 5%-WATER 2 GM/100 ML BAG IVPB SCH (09:57)
[2020-05-11] MEDS: POLYETHYLENE GLYCOL 3350 119 GM BTL PO SCH (10:01)
[2020-05-11] MEDS ORDERED: INSULIN (NOVOLOG) ASPART 100 UNITS/ML 10ML VIAL ONE (10:48)
[2020-05-12] MEDS: INSULIN SLIDING SCALE (NOVOLOG) 1 VIAL SQ SCH ×4 (06:32→21:32)
[2020-05-12 07:22] LABS: BASO % 0.6 % (0-2.0); EOS % 1.6 % (0-4.5); LYMPH % 9.9 % (8-40); MCH 27.8 pg (25.7-33.7); MCHC 33.2 g/dl (32.0-35.9); MEAN CELL VOLUME 83.6 fl (80-96); MEAN PLT VOLUME 9.5 fl (7.5-11.1); MONO % 15.2 % (3.8-10.2); NEUT % 72.7 % (42.8-82.8); PLATELET COUNT 226 K/MM3 (134-434); RBC 2.87 M/mm3 (4.00-5.60); RDW 16.9 % (11.9-15.9); WHITE BLOOD COUNT 18.6 K/mm3 (4.0-10.0)
[2020-05-12 07:38] LABS: CALCIUM 8.3 mg/dL (8.5-10.1)
[2020-05-12 07:39] LABS: ALBUMIN 1.6 g/dl (3.4-5.0); BLOOD UREA NITROGEN 16.8 mg/dL (7-18)
[2020-05-12 07:43] LABS: BILIRUBIN,TOTAL 1.5 mg/dL (0.2-1)
[2020-05-12 07:44] LABS: TOT PROT 5.4 g/dl (6.4-8.2)
[2020-05-12] MEDS ORDERED: DEXTROSE 5%-WATER 100 ML IVPB ONE (09:25)
[2020-05-12] MEDS: METOPROLOL TARTRATE 25 MG TABLET (FP) PO SCH ×2 (10:03→21:32)
[2020-05-12] MEDS: FAMOTIDINE 20 MG TABLET PO SCH (10:03)
[2020-05-12] MEDS: VALSARTAN 80 MG TABLET PO SCH (10:03)
[2020-05-12] MEDS: PANTOPRAZOLE SODIUM 40 MG VIAL IVPUSH SCH ×2 (11:26→21:32)
[2020-05-12] MEDS: POLYETHYLENE GLYCOL 3350 119 GM BTL PO SCH (11:26)
[2020-05-12] MEDS: CEFTRIAXONE 2 GM in DEXTROSE 5%-WATER 2 GM/100 ML BAG IVPB SCH (11:26)
[2020-05-12 21:08] LABS: BASO % 0.3 % (0-2.0); EOS % 1.5 % (0-4.5); HEMATOCRIT 24.7 % (35.4-49); HEMOGLOBIN 7.9 GM/dL (11.7-16.9); LYMPH % 8.6 % (8-40); MCH 27.1 pg (25.7-33.7); MCHC 31.8 g/dl (32.0-35.9); MEAN PLT VOLUME 9.1 fl (7.5-11.1); MONO % 16.3 % (3.8-10.2); NEUT % 73.3 % (42.8-82.8); PLATELET COUNT 275 K/MM3 (134-434); RBC 2.91 M/mm3 (4.00-5.60); RDW 17.1 % (11.9-15.9); WHITE BLOOD COUNT 20.2 K/mm3 (4.0-10.0)
[2020-05-12] MEDS: MONTELUKAST NA 10 MG TABLET PO SCH (21:32)
[2020-05-12] MEDS: ATORVASTATIN CA 40 MG TABLET (FP) PO SCH (21:32)
[2020-05-12 22:07] LABS: ANISOCYTOSIS 2+; MACROCYTOSIS 0; PLATELET ESTIMATE NORMAL
[2020-05-13] MEDS: HEPARIN - 25,000 UNIT in SODIUM CHLORIDE 495 ML IV SCH (02:00)
[2020-05-13 06:39] LABS: BASO % 0.5 % (0-2.0); EOS % 1.7 % (0-4.5); HEMOGLOBIN 7.7 GM/dL (11.7-16.9); LYMPH % 10.1 % (8-40); MCH 27.4 pg (25.7-33.7); MCHC 32.1 g/dl (32.0-35.9); MEAN CELL VOLUME 85.4 fl (80-96); MEAN PLT VOLUME 9.1 fl (7.5-11.1); MONO % 16.5 % (3.8-10.2); NEUT % 71.2 % (42.8-82.8); PLATELET COUNT 259 K/MM3 (134-434); RBC 2.81 M/mm3 (4.00-5.60); RDW 17.1 % (11.9-15.9); WHITE BLOOD COUNT 18.2 K/mm3 (4.0-10.0)
[2020-05-13] MEDS: INSULIN SLIDING SCALE (NOVOLOG) 1 VIAL SQ SCH ×4 (06:39→23:34)
[2020-05-13 07:12] LABS: CALCIUM 8.2 mg/dL (8.5-10.1)
[2020-05-13 07:13] LABS: ALBUMIN 1.6 g/dl (3.4-5.0)
[2020-05-13 07:19] LABS: BILIRUBIN,TOTAL 1.3 mg/dL (0.2-1); TOT PROT 5.3 g/dl (6.4-8.2)
[2020-05-13 09:38] LABS: HEMATOCRIT 26.5 % (35.4-49); HEMOGLOBIN 8.5 GM/dL (11.7-16.9); MCH 27.3 pg (25.7-33.7); MEAN CELL VOLUME 85.3 fl (80-96); MEAN PLT VOLUME 8.9 fl (7.5-11.1); PLATELET COUNT 281 K/MM3 (134-434); RBC 3.11 M/mm3 (4.00-5.60); RDW 17.5 % (11.9-15.9); WHITE BLOOD COUNT 18.5 K/mm3 (4.0-10.0)
[2020-05-13] MEDS ORDERED: DEXTROSE 5%-WATER 100 ML IVPB ONE (10:28)
[2020-05-13] MEDS: METOPROLOL TARTRATE 25 MG TABLET (FP) PO SCH ×2 (10:38→23:38)
[2020-05-13] MEDS: VALSARTAN 80 MG TABLET PO SCH (10:38)
[2020-05-13] MEDS: FAMOTIDINE 20 MG TABLET PO SCH (11:38)
[2020-05-13] MEDS: CEFTRIAXONE 2 GM in DEXTROSE 5%-WATER 2 GM/100 ML BAG IVPB SCH (11:39)
[2020-05-13] MEDS: POLYETHYLENE GLYCOL 3350 119 GM BTL PO SCH (11:39)
[2020-05-13] MEDS: PANTOPRAZOLE SODIUM 40 MG VIAL IVPUSH SCH ×2 (11:39→23:38)
[2020-05-13] MEDS: MONTELUKAST NA 10 MG TABLET PO SCH (23:38)
[2020-05-13] MEDS: ATORVASTATIN CA 40 MG TABLET (FP) PO SCH (23:38)
[2020-05-14 08:11] LABS: BASO % 0.6 % (0-2.0); EOS % 1.3 % (0-4.5); HEMATOCRIT 22.9 % (35.4-49); HEMOGLOBIN 7.4 GM/dL (11.7-16.9); LYMPH % 8.3 % (8-40); MCH 27.4 pg (25.7-33.7); MCHC 32.1 g/dl (32.0-35.9); MEAN CELL VOLUME 85.2 fl (80-96); MEAN PLT VOLUME 9.7 fl (7.5-11.1); MONO % 13.9 % (3.8-10.2); NEUT % 75.9 % (42.8-82.8); PLATELET COUNT 228 K/MM3 (134-434); RBC 2.69 M/mm3 (4.00-5.60); RDW 17.2 % (11.9-15.9); WHITE BLOOD COUNT 19.1 K/mm3 (4.0-10.0)
[2020-05-14] MEDS: INSULIN SLIDING SCALE (NOVOLOG) 1 VIAL SQ SCH ×4 (08:28→22:36)
[2020-05-14 08:45] LABS: ALBUMIN 1.5 g/dl (3.4-5.0); BLOOD UREA NITROGEN 15.1 mg/dL (7-18)
[2020-05-14 08:46] LABS: BILIRUBIN,TOTAL 1.3 mg/dL (0.2-1); TOT PROT 5.5 g/dl (6.4-8.2)
[2020-05-14 08:47] LABS: CALCIUM 8.7 mg/dL (8.5-10.1)
[2020-05-14] MEDS ORDERED: DEXTROSE 5%-WATER 100 ML IVPB ONE (09:09)
[2020-05-14] MEDS: METOPROLOL TARTRATE 25 MG TABLET (FP) PO SCH ×2 (09:37→22:27)
[2020-05-14] MEDS: FAMOTIDINE 20 MG TABLET PO SCH (09:37)
[2020-05-14] MEDS: PANTOPRAZOLE SODIUM 40 MG VIAL IVPUSH SCH ×2 (09:37→22:27)
[2020-05-14] MEDS: CEFTRIAXONE 2 GM in DEXTROSE 5%-WATER 2 GM/100 ML BAG IVPB SCH (09:37)
[2020-05-14] MEDS: VALSARTAN 80 MG TABLET PO SCH (09:37)
[2020-05-14] MEDS: POLYETHYLENE GLYCOL 3350 119 GM BTL PO SCH (10:01)
[2020-05-14] MEDS: HEPARIN - 25,000 UNIT in SODIUM CHLORIDE 495 ML IV SCH ×2 (11:06→12:48)
[2020-05-14 12:09] LABS: HEMATOCRIT 24.4 % (35.4-49); HEMOGLOBIN 7.7 GM/dL (11.7-16.9); MCHC 31.5 g/dl (32.0-35.9); MEAN CELL VOLUME 85.6 fl (80-96); MEAN PLT VOLUME 9.3 fl (7.5-11.1); PLATELET COUNT 206 K/MM3 (134-434); RBC 2.85 M/mm3 (4.00-5.60); RDW 17.7 % (11.9-15.9); WHITE BLOOD COUNT 19.7 K/mm3 (4.0-10.0)
[2020-05-14] MEDS: ATORVASTATIN CA 40 MG TABLET (FP) PO SCH (22:27)
[2020-05-14] MEDS: MONTELUKAST NA 10 MG TABLET PO SCH (22:27)
[2020-05-15] MEDS: INSULIN SLIDING SCALE (NOVOLOG) 1 VIAL SQ SCH ×4 (06:27→22:25)
[2020-05-15] MEDS: HEPARIN - 25,000 UNIT in SODIUM CHLORIDE 495 ML IV SCH (06:29)
[2020-05-15 09:33] LABS: BASO % 0.6 % (0-2.0); HEMATOCRIT 25.8 % (35.4-49); HEMOGLOBIN 8.4 GM/dL (11.7-16.9); LYMPH % 7.4 % (8-40); MCH 27.6 pg (25.7-33.7); MCHC 32.6 g/dl (32.0-35.9); MEAN CELL VOLUME 84.8 fl (80-96); MONO % 14.3 % (3.8-10.2); NEUT % 76.7 % (42.8-82.8); PLATELET COUNT 275 K/MM3 (134-434); RBC 3.05 M/mm3 (4.00-5.60); RDW 17.1 % (11.9-15.9)
[2020-05-15 10:13] LABS: ALBUMIN 1.6 g/dl (3.4-5.0); BLOOD UREA NITROGEN 13.2 mg/dL (7-18); CALCIUM 8.4 mg/dL (8.5-10.1)
[2020-05-15 10:16] LABS: BILIRUBIN,TOTAL 1.8 mg/dL (0.2-1); CREATININE 1.1 mg/dL (0.55-1.3); TOT PROT 5.5 g/dl (6.4-8.2)
[2020-05-15] MEDS ORDERED: ALBUTEROL SO4 0.083% IH SOL 2.5 MG/3 ML VIAL.NEB. NEB PRN (10:49)
[2020-05-15] MEDS ORDERED: DEXTROSE 5%-WATER 100 ML IVPB ONE (10:55)
[2020-05-15] MEDS: PANTOPRAZOLE SODIUM 40 MG VIAL IVPUSH SCH ×2 (11:24→22:15)
[2020-05-15] MEDS: CEFTRIAXONE 2 GM in DEXTROSE 5%-WATER 2 GM/100 ML BAG IVPB SCH (11:25)
[2020-05-15] MEDS: VALSARTAN 80 MG TABLET PO SCH (11:25)
[2020-05-15] MEDS: POLYETHYLENE GLYCOL 3350 119 GM BTL PO SCH (11:25)
[2020-05-15] MEDS: FAMOTIDINE 20 MG TABLET PO SCH (11:25)
[2020-05-15] MEDS: METOPROLOL TARTRATE 25 MG TABLET (FP) PO SCH ×2 (11:25→22:14)
[2020-05-15] MEDS: ALBUTEROL SO4 2.5/IPRATROPIUM 0.5 INH SOL 3 ML VIAL.NEB. NEB SCH ×2 (17:41→19:23)
[2020-05-15] MEDS ORDERED: ACETAMINOPHEN 1000 MG/100 ML VIAL (NON FORMULARY) IVPB ONE (20:38)
[2020-05-15] MEDS: ATORVASTATIN CA 40 MG TABLET (FP) PO SCH (22:14)
[2020-05-15] MEDS: MONTELUKAST NA 10 MG TABLET PO SCH (22:14)
[2020-05-16] MEDS: HEPARIN - 25,000 UNIT in SODIUM CHLORIDE 495 ML IV SCH (00:51)
[2020-05-16] MEDS: INSULIN SLIDING SCALE (NOVOLOG) 1 VIAL SQ SCH ×4 (06:21→21:21)
[2020-05-16 08:09] LABS: HEMATOCRIT 29.4 % (35.4-49); HEMOGLOBIN 9.4 GM/dL (11.7-16.9); MCH 27.1 pg (25.7-33.7); MCHC 31.9 g/dl (32.0-35.9); MEAN CELL VOLUME 84.9 fl (80-96); MEAN PLT VOLUME 9.5 fl (7.5-11.1); PLATELET COUNT 238 K/MM3 (134-434); RBC 3.46 M/mm3 (4.00-5.60); RDW 17.1 % (11.9-15.9); WHITE BLOOD COUNT 19.1 K/mm3 (4.0-10.0)
[2020-05-16] MEDS: ALBUTEROL SO4 2.5/IPRATROPIUM 0.5 INH SOL 3 ML VIAL.NEB. NEB SCH ×3 (08:15→21:02)
[2020-05-16 09:48] LABS: ALBUMIN 1.8 g/dl (3.4-5.0); BILIRUBIN,TOTAL 1.8 mg/dL (0.2-1); BLOOD UREA NITROGEN 13.5 mg/dL (7-18); TOT PROT 6.2 g/dl (6.4-8.2)
[2020-05-16] MEDS: PANTOPRAZOLE SODIUM 40 MG VIAL IVPUSH SCH ×2 (09:54→21:12)
[2020-05-16] MEDS ORDERED: DEXTROSE 5%-WATER 100 ML IVPB ONE (09:54)
[2020-05-16] MEDS: CEFTRIAXONE 2 GM in DEXTROSE 5%-WATER 2 GM/100 ML BAG IVPB SCH (09:55)
[2020-05-16] MEDS: METOPROLOL TARTRATE 25 MG TABLET (FP) PO SCH ×2 (09:55→21:11)
[2020-05-16] MEDS: FAMOTIDINE 20 MG TABLET PO SCH (09:55)
[2020-05-16] MEDS: VALSARTAN 80 MG TABLET PO SCH (09:55)
[2020-05-16] MEDS: POLYETHYLENE GLYCOL 3350 119 GM BTL PO SCH (09:59)
[2020-05-16] MEDS: ENOXAPARIN NA (PORCINE) 80 MG/0.8 ML DISP.SYRIN SQ SCH ×2 (16:15→23:56)
[2020-05-16] MEDS: MONTELUKAST NA 10 MG TABLET PO SCH (21:12)
[2020-05-16] MEDS: ATORVASTATIN CA 40 MG TABLET (FP) PO SCH (21:12)
[2020-05-17] MEDS ORDERED: PT OWN MED DRAWER 7, Y5N ONE (05:21)
[2020-05-17] MEDS: INSULIN SLIDING SCALE (NOVOLOG) 1 VIAL SQ SCH ×4 (07:53→21:15)
[2020-05-17] MEDS: ALBUTEROL SO4 2.5/IPRATROPIUM 0.5 INH SOL 3 ML VIAL.NEB. NEB SCH ×4 (08:00→19:30)
[2020-05-17 08:06] LABS: HEMATOCRIT 25.1 % (35.4-49); HEMOGLOBIN 8.2 GM/dL (11.7-16.9); MCH 27.6 pg (25.7-33.7); MCHC 32.7 g/dl (32.0-35.9); MEAN CELL VOLUME 84.2 fl (80-96); MEAN PLT VOLUME 9.3 fl (7.5-11.1); PLATELET COUNT 199 K/MM3 (134-434); RBC 2.99 M/mm3 (4.00-5.60); RDW 17.7 % (11.9-15.9); WHITE BLOOD COUNT 17.2 K/mm3 (4.0-10.0)
[2020-05-17 08:23] LABS: BLOOD UREA NITROGEN 10.7 mg/dL (7-18)
[2020-05-17 08:24] LABS: ALBUMIN 1.5 g/dl (3.4-5.0); BILIRUBIN,TOTAL 1.6 mg/dL (0.2-1); TOT PROT 5.4 g/dl (6.4-8.2)
[2020-05-17 08:25] LABS: CALCIUM 8.8 mg/dL (8.5-10.1)
[2020-05-17] MEDS ORDERED: DEXTROSE 5%-WATER 100 ML IVPB ONE (08:54)
[2020-05-17] MEDS: CEFTRIAXONE 2 GM in DEXTROSE 5%-WATER 2 GM/100 ML BAG IVPB SCH (09:44)
[2020-05-17] MEDS: FAMOTIDINE 20 MG TABLET PO SCH (09:46)
[2020-05-17] MEDS: PANTOPRAZOLE SODIUM 40 MG VIAL IVPUSH SCH ×2 (09:46→21:16)
[2020-05-17] MEDS: METOPROLOL TARTRATE 25 MG TABLET (FP) PO SCH ×2 (09:46→21:15)
[2020-05-17] MEDS: VALSARTAN 80 MG TABLET PO SCH (09:46)
[2020-05-17] MEDS: ENOXAPARIN NA (PORCINE) 80 MG/0.8 ML DISP.SYRIN SQ SCH ×2 (09:47→21:15)
[2020-05-17] MEDS: POLYETHYLENE GLYCOL 3350 119 GM BTL PO SCH (10:43)
[2020-05-17] MEDS: FUROSEMIDE 20 MG TABLET (FP) PO SCH (10:43)
[2020-05-17] MEDS: MONTELUKAST NA 10 MG TABLET PO SCH (21:15)
[2020-05-17] MEDS: ATORVASTATIN CA 40 MG TABLET (FP) PO SCH (21:15)
[2020-05-18] MEDS: INSULIN SLIDING SCALE (NOVOLOG) 1 VIAL SQ SCH ×3 (06:14→16:57)
[2020-05-18] MEDS: ALBUTEROL SO4 2.5/IPRATROPIUM 0.5 INH SOL 3 ML VIAL.NEB. NEB SCH ×3 (07:49→20:26)
[2020-05-18 08:18] LABS: HEMATOCRIT 27.2 % (35.4-49); HEMOGLOBIN 8.8 GM/dL (11.7-16.9); MCH 27.4 pg (25.7-33.7); MCHC 32.3 g/dl (32.0-35.9); MEAN CELL VOLUME 84.8 fl (80-96); PLATELET COUNT 222 K/MM3 (134-434); RBC 3.21 M/mm3 (4.00-5.60); RDW 18.2 % (11.9-15.9); WHITE BLOOD COUNT 21.1 K/mm3 (4.0-10.0)
[2020-05-18 08:35] LABS: ALBUMIN 1.6 g/dl (3.4-5.0); BLOOD UREA NITROGEN 10.2 mg/dL (7-18); CALCIUM 9.5 mg/dL (8.5-10.1)
[2020-05-18 08:40] LABS: BILIRUBIN,TOTAL 1.8 mg/dL (0.2-1); TOT PROT 5.8 g/dl (6.4-8.2)
[2020-05-18] MEDS ORDERED: DEXTROSE 5%-WATER 100 ML IVPB ONE (09:15)
[2020-05-18] MEDS: CEFTRIAXONE 2 GM in DEXTROSE 5%-WATER 2 GM/100 ML BAG IVPB SCH (09:18)
[2020-05-18] MEDS: FAMOTIDINE 20 MG TABLET PO SCH (09:18)
[2020-05-18] MEDS: METOPROLOL TARTRATE 25 MG TABLET (FP) PO SCH ×2 (09:18→21:42)
[2020-05-18] MEDS: VALSARTAN 80 MG TABLET PO SCH (09:18)
[2020-05-18] MEDS: ENOXAPARIN NA (PORCINE) 80 MG/0.8 ML DISP.SYRIN SQ SCH ×2 (09:18→21:42)
[2020-05-18] MEDS: PANTOPRAZOLE SODIUM 40 MG VIAL IVPUSH SCH ×2 (09:18→21:43)
[2020-05-18] MEDS: POLYETHYLENE GLYCOL 3350 119 GM BTL PO SCH (09:19)
[2020-05-18] MEDS: FUROSEMIDE 20 MG TABLET (FP) PO SCH (09:19)
[2020-05-18 14:15] VITALS: BMI 25.4
[2020-05-18] MEDS: AMINO ACIDS/PROTEIN HYDROLYS 30 ML LIQUID.PKT PO SCH (17:32)
[2020-05-18] MEDS: ATORVASTATIN CA 40 MG TABLET (FP) PO SCH (21:42)
[2020-05-18] MEDS: MONTELUKAST NA 10 MG TABLET PO SCH (21:43)
[2020-05-19] MEDS: INSULIN SLIDING SCALE (NOVOLOG) 1 VIAL SQ SCH ×5 (00:35→22:16)
[2020-05-19] MEDS: ALBUTEROL SO4 2.5/IPRATROPIUM 0.5 INH SOL 3 ML VIAL.NEB. NEB SCH ×3 (07:40→19:30)
[2020-05-19] MEDS ORDERED: DEXTROSE 5%-WATER 100 ML IVPB ONE (08:40)
[2020-05-19] MEDS: AMINO ACIDS/PROTEIN HYDROLYS 30 ML LIQUID.PKT PO SCH ×2 (09:29→16:56)
[2020-05-19] MEDS: PANTOPRAZOLE SODIUM 40 MG VIAL IVPUSH SCH ×2 (09:29→22:12)
[2020-05-19] MEDS: CEFTRIAXONE 2 GM in DEXTROSE 5%-WATER 2 GM/100 ML BAG IVPB SCH (09:29)
[2020-05-19] MEDS: POLYETHYLENE GLYCOL 3350 119 GM BTL PO SCH (09:31)
[2020-05-19] MEDS: METOPROLOL TARTRATE 25 MG TABLET (FP) PO SCH ×2 (09:31→22:16)
[2020-05-19] MEDS: FAMOTIDINE 20 MG TABLET PO SCH (09:31)
[2020-05-19] MEDS: FUROSEMIDE 20 MG TABLET (FP) PO SCH (09:31)
[2020-05-19] MEDS: ENOXAPARIN NA (PORCINE) 80 MG/0.8 ML DISP.SYRIN SQ SCH ×2 (09:31→22:16)
[2020-05-19] MEDS: VALSARTAN 80 MG TABLET PO SCH (09:31)
[2020-05-19] MEDS: ATORVASTATIN CA 40 MG TABLET (FP) PO SCH (22:16)
[2020-05-19] MEDS: MONTELUKAST NA 10 MG TABLET PO SCH (22:16)
[2020-05-20] MEDS: INSULIN SLIDING SCALE (NOVOLOG) 1 VIAL SQ SCH ×5 (06:07→21:31)
[2020-05-20 07:35] LABS: BASO % 0.5 % (0-2.0); EOS % 1.6 % (0-4.5); HEMOGLOBIN 8.3 GM/dL (11.7-16.9); LYMPH % 7.9 % (8-40); MCH 26.9 pg (25.7-33.7); MCHC 31.8 g/dl (32.0-35.9); MEAN CELL VOLUME 84.6 fl (80-96); MEAN PLT VOLUME 9.7 fl (7.5-11.1); MONO % 14.9 % (3.8-10.2); NEUT % 75.1 % (42.8-82.8); PLATELET COUNT 182 K/MM3 (134-434); RBC 3.08 M/mm3 (4.00-5.60); RDW 18.2 % (11.9-15.9); WHITE BLOOD COUNT 16.3 K/mm3 (4.0-10.0)
[2020-05-20 07:59] LABS: ALBUMIN 1.5 g/dl (3.4-5.0); BLOOD UREA NITROGEN 13.3 mg/dL (7-18); CALCIUM 9.6 mg/dL (8.5-10.1)
[2020-05-20 08:03] LABS: BILIRUBIN,TOTAL 1.6 mg/dL (0.2-1); CREATININE 0.9 mg/dL (0.55-1.3)
[2020-05-20 08:04] LABS: TOT PROT 5.5 g/dl (6.4-8.2)
[2020-05-20] MEDS: ALBUTEROL SO4 2.5/IPRATROPIUM 0.5 INH SOL 3 ML VIAL.NEB. NEB SCH (08:47)
[2020-05-20] MEDS ORDERED: DEXTROSE 5%-WATER 100 ML IVPB ONE (10:07)
[2020-05-20] MEDS: AMINO ACIDS/PROTEIN HYDROLYS 30 ML LIQUID.PKT PO SCH ×2 (10:34→16:34)
[2020-05-20] MEDS: FAMOTIDINE 20 MG TABLET PO SCH (10:34)
[2020-05-20] MEDS: METOPROLOL TARTRATE 25 MG TABLET (FP) PO SCH ×2 (10:34→21:29)
[2020-05-20] MEDS: PANTOPRAZOLE SODIUM 40 MG VIAL IVPUSH SCH ×2 (10:34→21:29)
[2020-05-20] MEDS: ENOXAPARIN NA (PORCINE) 80 MG/0.8 ML DISP.SYRIN SQ SCH ×2 (10:36→21:31)
[2020-05-20] MEDS: CEFTRIAXONE 2 GM in DEXTROSE 5%-WATER 2 GM/100 ML BAG IVPB SCH (10:36)
[2020-05-20] MEDS: FUROSEMIDE 20 MG TABLET (FP) PO SCH (10:36)
[2020-05-20] MEDS: VALSARTAN 80 MG TABLET PO SCH (10:37)
[2020-05-20] MEDS: POLYETHYLENE GLYCOL 3350 119 GM BTL PO SCH (10:38)
[2020-05-20] MEDS ORDERED: ALBUTEROL SO4 0.083% IH SOL 2.5 MG/3 ML VIAL.NEB. NEB ONE (20:32)
[2020-05-20] MEDS ORDERED: ALBUTEROL SO4 2.5/IPRATROPIUM 0.5 INH SOL 3 ML VIAL.NEB. NEB ONE (20:37)
[2020-05-20] MEDS: MONTELUKAST NA 10 MG TABLET PO SCH (21:29)
[2020-05-20] MEDS: ATORVASTATIN CA 40 MG TABLET (FP) PO SCH (21:29)
[2020-05-21] MEDS: INSULIN SLIDING SCALE (NOVOLOG) 1 VIAL SQ SCH ×3 (06:13→17:24)
[2020-05-21] MEDS ORDERED: DEXTROSE 5%-WATER 100 ML IVPB ONE (09:00)
[2020-05-21 09:35] LABS: BASO % 0.6 % (0-2.0); EOS % 1.3 % (0-4.5); HEMATOCRIT 27.5 % (35.4-49); HEMOGLOBIN 8.7 GM/dL (11.7-16.9); LYMPH % 8.4 % (8-40); MCH 26.8 pg (25.7-33.7); MCHC 31.5 g/dl (32.0-35.9); MEAN CELL VOLUME 85.2 fl (80-96); MEAN PLT VOLUME 9.9 fl (7.5-11.1); MONO % 14.1 % (3.8-10.2); NEUT % 75.6 % (42.8-82.8); PLATELET COUNT 183 K/MM3 (134-434); RBC 3.23 M/mm3 (4.00-5.60); RDW 17.9 % (11.9-15.9); WHITE BLOOD COUNT 16.1 K/mm3 (4.0-10.0)
[2020-05-21] MEDS: PANTOPRAZOLE SODIUM 40 MG VIAL IVPUSH SCH (09:42)
[2020-05-21] MEDS: ENOXAPARIN NA (PORCINE) 80 MG/0.8 ML DISP.SYRIN SQ SCH (09:43)
[2020-05-21] MEDS: CEFTRIAXONE 2 GM in DEXTROSE 5%-WATER 2 GM/100 ML BAG IVPB SCH (09:43)
[2020-05-21] MEDS: METOPROLOL TARTRATE 25 MG TABLET (FP) PO SCH (09:44)
[2020-05-21] MEDS: AMINO ACIDS/PROTEIN HYDROLYS 30 ML LIQUID.PKT PO SCH ×2 (09:44→17:28)
[2020-05-21] MEDS: VALSARTAN 80 MG TABLET PO SCH (09:44)
[2020-05-21] MEDS: POLYETHYLENE GLYCOL 3350 119 GM BTL PO SCH (09:44)
[2020-05-21] MEDS: FUROSEMIDE 20 MG TABLET (FP) PO SCH (09:44)
[2020-05-21] MEDS: FAMOTIDINE 20 MG TABLET PO SCH (09:44)
[2020-05-21 10:00] LABS: ALBUMIN 1.6 g/dl (3.4-5.0); BLOOD UREA NITROGEN 14.3 mg/dL (7-18); CALCIUM 10.2 mg/dL (8.5-10.1)
[2020-05-21 10:03] LABS: CREATININE 0.9 mg/dL (0.55-1.3)
[2020-05-21 10:04] LABS: BILIRUBIN,TOTAL 1.8 mg/dL (0.2-1)
[2020-05-21 14:55] VITALS: BP 150/88; PULSE 72; TEMP 98.2
[2020-05-21] MEDS ORDERED: ALBUTEROL SO4 2.5/IPRATROPIUM 0.5 INH SOL 3 ML VIAL.NEB. NEB ONE (18:16)
== END 2020-05-21 19:40 | DRG 435 ==
LOC: JER 17:33 → JERBED 21:04 → J4W 05-01 06:20 → J7W 05-14 12:07
PROVIDERS: ADMIT Internal Medicine; ATTEND Internal Medicine
PROC: B246ZZ4 Ultrasonography of Right and Left Heart, Transesophageal (ICD-10-PCS; 2020-05-03)
PROC: 30233N1 Transfusion of Nonautologous Red Blood Cells into Peripheral Vein, Percutaneous Approach (ICD-10-PCS; 2020-05-05)
PROC: 0FB03ZX Excision of Liver, Percutaneous Approach, Diagnostic (ICD-10-PCS; principal; 2020-05-07)
DX: C25.9 Malignant neoplasm of pancreas, unspecified (principal); I50.33 Acute on chronic diastolic (congestive) heart failure; J96.01 Acute respiratory failure with hypoxia; I26.99 Other pulmonary embolism without acute cor pulmonale; I13.0 Hypertensive heart and chronic kidney disease with heart failure and stage 1 through stage 4 chronic kidney disease, or unspecified chronic kidney disease; I01.1 Acute rheumatic endocarditis; I48.92 Unspecified atrial flutter; C78.7 Secondary malignant neoplasm of liver and intrahepatic bile duct; D62 Acute posthemorrhagic anemia; N17.9 Acute kidney failure, unspecified; J44.1 Chronic obstructive pulmonary disease with (acute) exacerbation; I25.119 Atherosclerotic heart disease of native coronary artery with unspecified angina pectoris; I48.0 Paroxysmal atrial fibrillation; D72.829 Elevated white blood cell count, unspecified; E78.5 Hyperlipidemia, unspecified; N18.2 Chronic kidney disease, stage 2 (mild); D69.6 Thrombocytopenia, unspecified; J45.909 Unspecified asthma, uncomplicated
CPT/HCPCS: 36415; 36430; 36511; 47000; 71045-TC-FY; 71260-TC; 74176-TC; 74177-TC; 74182-TC; 76705-TC; 80048; 80053; 80061; 81003; 82105; 82272; 82378; 82962; 82977; 83036; 83721; 83735; 83880; 84443; 84484; 85025; 85027; 85610; 85651; 85730; 86140; 86301; 86611; 86704; 86706; 86707; 86708; 86709; 86803; 86850; 86900; 86901; 86922; 87040; 87086; 87340; 87804; 93005; 93010; 93306-TC; 93312; 93325; 93970-TC; 94640; 94761; 97116-GP; 97161-GP; 99285-25; A9579; C9803; J0131; J1644; P9038; P9058; U0003; U0005